=== PATIENT | male | born 1950 | race Caucasian/White ===

== ENCOUNTER 2019-12-11 16:01 | Inpatient (IN) ==
--- OUTSIDE RECORDS SUMMARY | 2019-12-11 16:03 | External Medical Summary | Continuity of Care Document ---
:1950 Author Name Per Mascorro Address Unavailable Unavailable , Care Team Providers Name Role Phone Ariane [email or web address] PCP, [email or web address] Unavailable Unavailable Problems Active medical history not documented Allergies and Adverse Reactions Allergy history not documented Medications Medications not documented Procedures Procedures not documented Immunizations Immunizations not documented Plan of Treatment Planned Observations Planned Goals not documented Results No Known Results Results not documented
--- NOTE | 2019-12-11 16:43 | Emergency Department Note ---
History of Present Illness General Chief complaint: Shortness of Breath/Dyspnea Stated complaint: SOB, FOOT SWOLLEN Time Seen by Provider: 12/11/19 16:23 Source: patient and family ( who is at the bedside) Mode of arrival: ambulatory Limitations: no limitations History of Present Illness This patient comes in after feeling short of breath since Friday is primarily dyspnea on exertion. He has had lower extremity edema as well. He saw his doctor who thought it could be anxiety and started on alprazolam. He has had some stress with a family member living at his house. He was also started on butyryl without much relief. He has no cough except for occasional dry cough. No fever or flulike symptoms or COVID type symptoms. He has had bilateral lower extremity edema which is new. No chest pain or palpitations or heart racing. He tells me he has A. fib chronically and is on apixaban. No bowel or bladder problems. No blood or melena stool. No lightheadedness or dizziness. He has been exposed to agent orange in the past Home Medications Home Medications Medication Instructions Recorded Confirmed Type albuterol sulfate [ProAir HFA] 1 inh INHALATION Q4 12/11/19 12/11/19 History alprazolam 1 mg PO TID 12/11/19 12/11/19 History apixaban [Eliquis] 5 mg PO BID 12/11/19 12/11/19 History lnrktacnyvd-rutsnxeem-wyvvupxd 1 inh INHALATION DIRECTED 12/11/19 12/11/19 History [Trelegy Ellipta] glipizide 10 mg PO BID 12/11/19 12/11/19 History lisinopril 5 mg PO DAILY 12/11/19 12/11/19 History metformin 1,000 mg PO DAILY 12/11/19 12/11/19 History metoprolol succinate [Toprol XL] 50 mg PO DAILY 12/11/19 12/11/19 History nicotine 1 patch TOPICAL DIRECTED 12/11/19 12/11/19 History simvastatin 80 mg PO DAILY 12/11/19 12/11/19 History Past Med/Surg History Social History Preferred Language: Afghan Communication Ability: Effective 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 Required: No Beliefs That Will Affect Care: None Current Living Situation: Spouse Other Information That Helps Us Care for You: No Feels Safe at Home: Yes Safety Concerns: Feels Safe At This Time Smoking Status: Former smoker Do You Dip or Chew Tobacco: No ; Smoking End Date: 07/2019 ; Second Hand Exposure: Yes ; Tobacco Cessation Education Requested by Patient: No Hx Alcohol Use: Yes Alcohol type: beer Hx Substance Use: No Review of Systems A total of 10 systems reviewed and were otherwise negative Physical Exam Vital Signs Vital Signs - 24 hr 12/11/19 16:09 12/11/19 16:21 12/11/19 16:23 Temperature 36.4 C L Temperature Source Oral Pulse Rate 124 H 120 H 125 H Pulse Rate from SpO2 Sensor 105 H 136 H Respiratory Rate 24 25 H 28 H Respiratory Effort / Characteristics Non-Labored Spontaneous Respiratory Depth Normal Respiratory Pattern Regular Blood Pressure 117/75 121/103 H 126/98 Blood Pressure Mean 89 108 110 Pulse Oximetry 94 97 Oxygen Delivery Method Room Air Room Air Room Air Sepsis Recent Fever Within 48 Hours No Sepsis Action Taken by Nursing No Action Required 12/11/19 16:28 12/11/19 16:30 12/11/19 16:31 Temperature Temperature Source Pulse Rate 124 H 119 H Pulse Rate from SpO2 Sensor 122 H 113 H Respiratory Rate 27 H 23 Respiratory Effort / Characteristics Respiratory Depth Respiratory Pattern Blood Pressure 116/92 Blood Pressure Mean 95 Pulse Oximetry 97 97 96 Oxygen Delivery Method Room Air Room Air Room Air Sepsis Recent Fever Within 48 Hours Sepsis Action Taken by Nursing 12/11/19 16:40 12/11/19 16:50 12/11/19 17:00 Temperature Temperature Source Pulse Rate 109 H 127 H 117 H Pulse Rate from SpO2 Sensor 110 H 119 H 90 Respiratory Rate 21 30 H 21 Respiratory Effort / Characteristics Respiratory Depth Respiratory Pattern Blood Pressure 108/87 Blood Pressure Mean 90 Pulse Oximetry 95 94 96 Oxygen Delivery Method Room Air Room Air Room Air Sepsis Recent Fever Within 48 Hours Sepsis Action Taken by Nursing 12/11/19 17:01 12/11/19 17:10 12/11/19 17:20 Temperature Temperature Source Pulse Rate 113 H 118 H 136 H Pulse Rate from SpO2 Sensor 113 H 102 H 131 H Respiratory Rate 23 24 31 H Respiratory Effort / Characteristics Respiratory Depth Respiratory Pattern Blood Pressure Blood Pressure Mean Pulse Oximetry 95 99 98 Oxygen Delivery Method Room Air Room Air Room Air Sepsis Recent Fever Within 48 Hours Sepsis Action Taken by Nursing 12/11/19 17:30 12/11/19 17:31 12/11/19 17:40 Temperature Temperature Source Pulse Rate 109 H 116 H 131 H Pulse Rate from SpO2 Sensor 97 H 114 H 93 H Respiratory Rate 33 H 25 H 21 Respiratory Effort / Characteristics Respiratory Depth Respiratory Pattern Blood Pressure 124/94 Blood Pressure Mean 110 Pulse Oximetry 93 92 94 Oxygen Delivery Method Room Air Room Air Room Air Sepsis Recent Fever Within 48 Hours Sepsis Action Taken by Nursing 12/11/19 19:11 Temperature Temperature Source Pulse Rate 124 H Pulse Rate from SpO2 Sensor 97 H Respiratory Rate 24 Respiratory Effort / Characteristics Respiratory Depth Respiratory Pattern Blood Pressure 113/97 Blood Pressure Mean 102 Pulse Oximetry 97 Oxygen Delivery Method Room Air Sepsis Recent Fever Within 48 Hours Sepsis Action Taken by Nursing General: Well developed well nourished rqs-rct-omrkcgxaw older male who appears in no acute distress, breathing comfortably on room air. Normal speech HEENT: Normal cephalic atraumatic. Pupils are equal round and reactive to light. Extraocular movements are intact. Oropharynx is pink with moist mucous membranes. No swelling of the mouth lips or tongue. Neck: Supple with a midline trachea. No meningeal signs or stiffness, no JVD or bruits. No Stridor. Chest: Clear to auscultation bilaterally. No wheezes or rhonchi. No increased work of breathing. He is speaking fluently and holding long conversations without apparent shortness of breath Heart: Irregularly irregular rate and rhythm with mild tachycardia in the 1 teens without murmurs or gallops. Abdomen: Soft nontender, nondistended without rebound guarding or rigidity. Extremities: No cyanosis clubbing. Bilateral lower extremity edema, 1+. No calf tenderness or assymetry Spine/Back. Non tender to palpation. No CVA tenderness Skin: Good turgor without rashes. Neurologic exam: Cranial nerves two through 12 are intact. Motor and sensation are intact and symmetrical throughout. Course Administered Medications Ioversol (Optiray 320 125ml) 110 ml IV ONCE PRN PRN Reason: Interaction Checking Stop: 12/15/19 18:08 Last Admin: 12/11/19 18:10 Dose: 110 ml Documented by: [id number] Discontinued Medications Furosemide (Lasix) 20 mg IV NOW STA Stop: 12/11/19 18:45 Last Admin: 12/11/19 19:05 Dose: 20 mg Documented by: [id number] Medical Decision Making Differential Diagnosis CHF, anxiety, arrhythmia, PE, electrolyte or metabolic abnormality, acute coronary syndrome, anemia, electrolyte or metabolic abnormality, infection, code Medical Records Attestation: I reviewed the patient's medical records. Home Medications Current Medication List: was personally reviewed by me Laboratory Data Attestation: I reviewed the patient's lab results. Result diagrams: 12/11/19 16:29 12/11/19 16:29 Lab Results 12/11/19 12/11/19 12/11/19 Range/Units 16:29 16:29 16:29 WBC 8.44 (4.8-10.8) K/uL RBC 4.12 L (4.7-6.1) M/uL Hgb 13.9 L (14.0-18.0) g/dL Hct 40.8 L (42-52) % MCV 99.0 (80-100) fL MCH 33.7 (25-34) pg MCHC 34.1 (32-36) g/dL RDW Std Deviation 52.8 H (36.4-46.3) fL RDW Coeff of Tiffany 14.7 H (11.5-14.5) % Plt Count 215 (130-400) K/uL MPV 11.1 H (7.4-10.4) fL Immature Gran % (Auto) 0.1 % Neut % (Auto) 74.8 % Lymph % (Auto) 14.9 % [place] % (Auto) 10.2 % Eos % (Auto) 0.0 % Baso % (Auto) 0.0 % Neut # (Auto) 6.31 (1.4-6.5) K/uL Lymph # (Auto) 1.26 (1.2-3.4) K/uL [place] # (Auto) 0.86 H (0.11-0.59) K/uL Eos # (Auto) 0.00 (0-0.5) K/uL Baso # (Auto) 0.00 (0-0.2) K/uL Immature Gran # (Auto) 0.01 (0.00-0.02) K/uL PT 14.6 H (9.0-12.0) Seconds INR 1.4 H (0.9-1.1) APTT 31.9 H (21.0-31.0) Seconds PTT Ratio 1.1 D-Dimer 820 H* (0-500) ug/L FEU Sodium 133 L (136-145) mmol/L Potassium 4.6 (3.5-5.1) mmol/L Chloride 104 (98-107) mmol/L Carbon Dioxide 21 (21-32) mmol/L Anion Gap 8.0 (3-11) BUN 24 H (7-18) mg/dl Creatinine 1.44 H (0.6-1.4) mg/dl Est Cr Clr Drug Dosing 53.9 ml/min Est GFR ( Amer) 57.4 Est GFR (Non-Af Amer) 49.5 BUN/Creatinine Ratio 16.6 (10-20) Glucose 145 H (70-99) mg/dl Calcium 9.2 (8.5-10.1) mg/dl Total Bilirubin 1.2 H (0.2-1) mg/dl AST 91 H (15-37) U/L ALT 80 H (12-78) U/L Alkaline Phosphatase 112 (45-117) U/L Troponin I < 0.015 (0-0.045) ng/ml NT-Pro-B Natriuret Pep > 16826 H (0-900) pg/ml Total Protein 8.1 (6.4-8.2) gm/dl Albumin 3.8 (3.4-5.0) gm/dl Globulin 4.3 H (2.5-4.0) gm/dl Albumin/Globulin Ratio 0.9 (0.9-2) Lipase 75 (73-393) U/L Imaging Data Attestation: I personally reviewed and interpreted this imaging study as follows: My Impression: Chest x-ray: Cardiomegaly. There may be some mild vascular congestion as well with no focal infiltrate. Radiologist's Impression: XR chest 1V portable CLINICAL HISTORY: Chest pain. COMPARISON STUDY: No previous studies for comparison. FINDINGS: The patient is rotated. Moderate cardiomegaly is noted. There is pulmonary vascular congestion. Small right and trace left pleural effusions are noted. Right basilar opacity is noted. IMPRESSION: 1. Small right pleural effusion with right basilar opacity that may reflect atelectasis or pneumonia. Radiographic follow-up is recommended. 2. Moderate cardiomegaly. Pulmonary vascular congestion. 3. Rotated study. CT ANGIOGRAPHY OF THE CHEST, PULMONARY EMBOLUS PROTOCOL CLINICAL HISTORY: Severe shortness of breath. COMPARISON STUDY: Chest radiograph performed earlier today. TECHNIQUE: Following IV administration of 110 mL of Optiray-320, helical axial images of the chest were obtained utilizing the pulmonary embolus protocol. Maximal intensity projections and sagittal and coronal reformats were viewed on an independent 3D workstation. IV contrast was administered without complication. Automated exposure control was utilized for the study. A dose lowering technique was utilized adhering to the principles of ALARA. CT DOSE: 532.95 mGy.cm FINDINGS: Evaluation is difficult given suspected mixing artifact within the right and left pulmonary arteries as well as multiple segmental pulmonary art eries, most notably within the right lower lobe. Apparent pulmonary emboli within the right lower lobe likely reflect mixing artifact. Heart is moderately enlarged. There is no pericardial effusion. There are several mildly enlarged mediastinal lymph nodes. Small to moderate right pleural effusion is noted. There is a small left pleural effusion. There is no pneumothorax. Moderate upper lobe predominant emphysema is noted. A 5 mm left upper lobe nodule on image 241 of 346 is noted. The central airways are patent. Right lung opacities favor atelectasis. There is no consolidation to suggest pneumonia. There is mild interlobular septal thickening. A few old bilateral rib fractures are noted. A small amount of ascites within the upper abdomen is noted. IMPRESSION: 1. Apparent filling defects within the pulmonary arteries, most notably within the right pulmonary artery and numerous segmental branches of the right lower lobe. The findings are likely due to mixing artifact. Pulmonary emboli could appear similar but are considered less likely. A repeat CT is recommended. 2. Small to moderate right pleural effusion. Small left pleural effusion. Mild interstitial pulmonary edema. 3. Moderate cardiomegaly. 4. Right lung airspace opacities suggestive of atelectasis. No consolidation to suggest pneumonia. 5. Small amount of ascites within the upper abdomen. 6. Moderate emphysema. 7. 5 mm left upper lobe nodule which is likely benign. A follow-up chest CT in 6 months to ensure stability is recommended. Prominent mediastinal and right hilar lymph nodes which are likely reactive but can be assessed on follow-up chest CT. ECG Data Attestation: I personally reviewed and interpreted this ECG as follows: Indication: + SOB/dyspnea Rate (beats per minute): 124 Rhythm: + atrial fibrillation (With a rapid ventricular response ) ECG Intervals/blocks: + Normal QRS ECG [place]: + Normal ECG ST segments: + Nonspecific ST abnormalities ECG Findings: + PVCs and + Poor R wave progression; no PACs and no Peaked T waves Comparison ECG Date: no prior available Blood Pressure Blood Pressure Findings: Normal blood pressure Blood Pressure Disposition: did not require urgent referral MDM Narrative This patient comes in as scribed above. He was placed on a admissions rn in room B7. He has been having shortness of breath and lower extremity edema. Is mostly been dyspnea on exertion. Looks well at rest. He is mildly tachycardic and has A. fib and he tells me the A. fib is chronic and he is on apixaban for this. He appears in no distress. IV access was established multiple blood test was obtained EKG and chest x-ray were obtained as well. He was reassessed frequently. He has a normal white count and nothing to suggest sepsis or infection. He is not significantly anemic. Chest x-ray shows some cardiomegaly. His d-dimer was elevated in the 800s. I did discuss doing a CAT scan of his chest and he agrees. I explained the risks and the benefits. When I go to recheck him prior to the CT his heart rate is about 100 and is come down significantly without any treatment. He also continues to appear in no distress. CAT scan of his chest does show pleural effusions and some congestive heart failure. Unfortunately it is difficult to rule PE out due to the dye mixing. The radiologist did recommend repeating the CAT scan. At this point, that may need to be done tomorrow if necessary. I do think he needs to be admitted for his congestive heart failure. he was given Lasix 20 mg IV for diuresis and I do think should come in the hospital for further treatment and evaluation. I have consulted Dr. Barrett to see him in the ER for these measures. Continuous cardiac monitoring: An order was placed for continuous cardiac monitoring. 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 Discharge Plan Visit Data *Final* Discharge Date/Time: 12/11/19 20:35 Chief Complaint: Shortness of Breath/Dyspnea Stated Complaint: SOB, FOOT SWOLLEN ED Provider: Hi Sol Discharge Problem: CHF (congestive heart failure), SOB (shortness of breath), Atrial fibrillation, retirement (current) use of anticoagulants Patient Disposition: Admitted As Inpatient Discharge Instructions Interventions: ED Discharge Assessment Last Done: 12/11/19 20:35 Discharge Problem: CHF (congestive heart failure) Qualifiers: Heart failure type: unspecified Heart failure chronicity: acute Qualified Code(s): I50.9 - Heart failure, unspecified Atrial fibrillation Qualifiers: Atrial fibrillation type: longstanding persistent Qualified Code(s): I48.11 - Longstanding persistent atrial fibrillation
[2019-12-11 16:49] LABS: Hematocrit (blood only) 40.8 % (42-52); Hemoglobin 13.9 g/dL (14.0-18.0); Immature Granulocytes # (auto) 0.01 K/uL (0.00-0.02); Immature Granulocytes % (auto) 0.1 %; Lymphocytes # (auto) 1.26 K/uL (1.2-3.4); Lymphocytes % (auto) 14.9 %; Mean Corpuscular Hemoglobin 33.7 pg (25-34); Mean Corpuscular Hgb Conc 34.1 g/dL (32-36); Mean Platelet Volume 11.1 fL (7.4-10.4); Monocytes # (auto) 0.86 K/uL (0.11-0.59); Monocytes % (auto) 10.2 %; Neutrophils # (auto) 6.31 K/uL (1.4-6.5); Neutrophils % (auto) 74.8 %; Platelet Count 215 K/uL (130-400); RDW Coefficient of Variation 14.7 % (11.5-14.5); RDW Standard Deviation 52.8 fL (36.4-46.3); Red Blood Count 4.12 M/uL (4.7-6.1); White Blood Count 8.44 K/uL (4.8-10.8)
[2019-12-11 17:02] LABS: INR 1.4 (0.9-1.1); Partial Thromboplastin Ratio 1.1; Partial Thromboplastin Time 31.9 Seconds (21.0-31.0); Prothrombin Time 14.6 Seconds (9.0-12.0)
[2019-12-11 17:04] LABS: D Dimer 820 ug/L FEU (0-500)
--- NOTE | 2019-12-11 17:12 | XRay Report ---
XR chest 1V portable CLINICAL HISTORY: Chest pain. COMPARISON STUDY: No previous studies for comparison. FINDINGS: The patient is rotated. Moderate cardiomegaly is noted. There is pulmonary vascular congest ion. Small right and trace left pleural effusions are noted. Right basilar opacity is noted. IMPRESSION: 1. Small right pleural effusion with right basilar opacity that may reflect atelectasis or pneumonia. Radiographic follow-up is recommended. 2. Moderate cardiomegaly. Pulmonary vascular congestion. 3. Rotated study. ACT 112: Negative or not required by law. Electronically signed by: Zurdo Olivarez M.D. 12/11/2019 5:11 PM
[2019-12-11 17:21] LABS: Alanine Aminotransferase 80 U/L (12-78); Albumin Level 3.8 gm/dl (3.4-5.0); Aspartate Aminotransferase 91 U/L (15-37); BUN Creatinine Ratio 16.6 (10-20); Blood Urea Nitrogen 24 mg/dl (7-18); Calcium 9.2 mg/dl (8.5-10.1); Carbon Dioxide 21 mmol/L (21-32); Chloride 104 mmol/L (98-107); Creatinine Clr Calc Pharmacy 53.9 ml/min; Est GFR (African American) 57.4; Est GFR (Non-African American) 49.5; Glucose 145 mg/dl (70-99); Lipase 75 U/L (73-393); Potassium 4.6 mmol/L (3.5-5.1); Sodium 133 mmol/L (136-145)
[2019-12-11 17:26] LABS: Albumin Globulin Ratio 0.9 (0.9-2); Alkaline Phosphatase 112 U/L (45-117); Bilirubin,Total 1.2 mg/dl (0.2-1); Globulin 4.3 gm/dl (2.5-4.0); NT Pro B Type Natriuretic Pept > 35000 pg/ml (0-900); Total Protein 8.1 gm/dl (6.4-8.2); Troponin I < 0.015 ng/ml (0-0.045)
[2019-12-11] MEDS ORDERED: OPTIRAY 320 125ml IV PRN (18:09)
--- NOTE | 2019-12-11 18:32 | CT Scan Report ---
CT ANGIOGRAPHY OF THE CHEST, PULMONARY EMBOLUS PROTOCOL CLINICAL HISTORY: Severe shortness of breath. COMPARISON STUDY: Chest radiograph performed earlier today. TECHNIQUE: Following IV administration of 110 mL of Optiray-320, helical axial images of the chest we re obtained utilizing the pulmonary embolus protocol. Maximal intensity projections and sagittal and coronal reformats were viewed on an independent 3D workstation. IV contrast was administered withou t complication. Automated exposure control was utilized for the study. A dose lowering technique wa s utilized adhering to the principles of ALARA. CT DOSE: 532.95 mGy.cm FINDINGS: Evaluation is difficult given suspected mixing artifact within the right and left pulmonar y arteries as well as multiple segmental pulmonary arteries, most notably within the right lower lobe . Apparent pulmonary emboli within the right lower lobe likely reflect mixing artifact. Heart is mode rately enlarged. There is no pericardial effusion. There are several mildly enlarged mediastinal lymp h nodes. Small to moderate right pleural effusion is noted. There is a small left pleural effusion. T here is no pneumothorax. Moderate upper lobe predominant emphysema is noted. A 5 mm left upper lobe n odule on image 241 of 346 is noted. The central airways are patent. Right lung opacities favor atelec tasis. There is no consolidation to suggest pneumonia. There is mild interlobular septal thickening. A few old bilateral rib fractures are noted. A small amount of ascites within the upper abdomen is no kip. IMPRESSION: 1. Apparent filling defects within the pulmonary arteries, most notably within the right pulmonary ar jony and numerous segmental branches of the right lower lobe. The findings are likely due to mixing a rtifact. Pulmonary emboli could appear similar but are considered less likely. A repeat CT is recomme nded. 2. Small to moderate right pleural effusion. Small left pleural effusion. Mild interstitial pulmonary edema. 3. Moderate cardiomegaly. 4. Right lung airspace opacities suggestive of atelectasis. No consolidation to suggest pneumonia. 5. Small amount of ascites within the upper abdomen. 6. Moderate emphysema. 7. 5 mm left upper lobe nodule which is likely benign. A follow-up chest CT in 6 months to ensure sta bility is recommended. Prominent mediastinal and right hilar lymph nodes which are likely reactive bu t can be assessed on follow-up chest CT. ACT 112: Negative or not required by law. Electronically signed by: Zurdo Olivarez M.D. 12/11/2019 6:31 PM
[2019-12-11] MEDS ORDERED: FUROSEMIDE 40 MG/4 ML VIAL IV STA ×2 (18:44→19:52)
[2019-12-11] MEDS ORDERED: METOPROLOL TARTRATE 1 MG/ML VIAL IV PRN (19:41)
[2019-12-11] MEDS ORDERED: CARBOHYDRATES FOR HYPOGLYCEMIA PO PRN (19:45)
[2019-12-11] MEDS ORDERED: GLUCAGON FOR INJ 1 MG VIAL SQ PRN (19:45)
[2019-12-11] MEDS ORDERED: DEXTROSE 50% 50 ML SYRINGE IV PRN (19:45)
[2019-12-11] MEDS ORDERED: GLUCOSE 40% GEL 15 GM TUBE PO PRN (19:45)
[2019-12-11] MEDS ORDERED: GLUCOSE 10 TABS/TUBE PO PRN (19:45)
[2019-12-11] MEDS ORDERED: ALBUT/IPRATROP 3MG/0.5MG NEB 3 ML VIAL NEB PRN (19:48)
--- NOTE | 2019-12-11 20:06 | History & Physical Report ---
Date of Service December 11, 2019 Assessment & Plan (1) SOB (shortness of breath): Possible obstructive sleep apnea vs other etiology such as acute CHF exacerbation or from atrial fibrillation with rapid ventricular response -patient reports shortness of breath episode the night before hospital p resentation -he reports recent outpatient pulmonary function study but never diagnosed with obstructive sleep apnea -does not use home oxygen or CPAP at home (2) Acute systolic CHF (congestive heart failure): acute CHF exacerbation -reports that when he had been hospitalized in June 2019, he was diagnosed with poor ejection fraction of the heart as 30% and valvular heart problem -it was then that he was started on cardiac medications for CHF; and apixaban for stroke prophylaxis for the atrial fibrillation which he had known for a long time -he reported that he sign out on that admission because he disagreed with the doctors assessments and then had follow up [facility] system and family doctor Dr. Anders Piper on [address] [place] [address] [place] [address], phone -he reports adherence to beat kris, SHARI inhibitor statin. however he appears to have discontinued furosemide because he was urinating too much -on this admission he has elevated BNP, on CTA scan there are: Small to moderate right pleural effusion. Small left pleural effusion. Mild interstitial pulmonary edema. Moderate cardiomegaly. Right lung airspace opacities suggestive of atelectasis -given Lasix 20 mg IV x 1 in the ED, will give another 20 mg IV x1 at night of admission; then plan on IV Lasix 40 mg IV daily for now, monitor on telemetry, get echocardiogram and inpatient cardiology consult (3) Ascites: -Small amount of ascites within the upper abdomen on CTA -obtain abdomen ultrasound -check INR, hepatitis panel (4) COPD (chronic obstructive pulmonary disease) with emphysema: -history of smoking in the past but no longer since June 2019 -use Ellipta inhaler at home, continue -duonebs prn for shortness of breath or wheezing -Moderate emphysema on admission CTA -on room air on admission, no wheezing, his acute respiratory symptoms at home not likely to be from COPD (5) Lung nodule: -admission CTA: a 5 mm left upper lobe nodule which is likely benign. A follow-up chest CT in 6 months to ensure stability is recommended. Prominent mediastinal and right hilar lymph nodes which are likely reactive but can be assessed on follow-up chest CT (6) Atrial fibrillation with rapid ventricular response: -on admission with heart rates intermittently between low 100s to 120s -increase home dose metoprolol from metoprolol succinate 50 mg to metoprolol tartrate 25 mg every 8 hours for now, also have 5 mg IV metoprolol every 6 hours prn for heart rates above 110 bpm (7) half-way (current) use of anticoagulants: -has been on apixaban 5 mg BID since June 2019 for stroke prophylaxis from atrial fibrillation -admission CTA with "Apparent filling defects within the pulmonary arteries, most notably within the right pulmonary artery and numerous segmental branches of the right lower lobe. The findings are likely due to mixing artifact. Pulmonary emboli could appear similar but are considered less likely" -get ultrasound of lower extremities to rule out DVT -continue apixaban (8) Renal insufficiency: -admission creatinine 1.44 -unclear as to the baseline renal function -trend renal function while on furosemide (9) Type 2 diabetes mellitus: -patient reports good diabetes mellitus control at home and last known HbA1c as 6 -check inpatient HbA1c -hold home dose metformin and glipizide for now, place on sliding scale insulin based on blood sugars [employer] [place] Exposure -reports history of [place] exposure in the past when in the Current primary care doctor is Dr. Anders Piper on [address] [place] [address] [place] [address], phone . patient wishes to transfer care to [facility] outpatient clinic. will ask patient to allow get medical release of records. patient also follows with [facility] medical system Full Code Status [phone], History of Present Illness -patient reports shortness of breath episode the night before hospital presentation -he reports recent outpatient pulmonary function study but never diagnosed with obstructive sleep apnea -does not use home oxygen or CPAP at home no chest pain, no dizziness, no lightheadedness, no vomiting, no abdomen pain, no problems with bowel movement, no problems with urination. reports good diabe vicente control at home. reports adherence to cardiac medications and systemic anticoagulation with apixaban however no longer taking furosemide. reports recent outpatient pulmonary function tested completed but patient does not know the results. denies palpitations, but found to have fast heart rate with known atrial fibrillation in the ED. on room air, was given Lasix 20 mg IV x 1 in the ED. patient admitted for further cardiac workup and because emergency room doctor uncertain on whether CTA scan suggestive of pulmonary embolism or not Allergies: denies any known allergies to drugs or medications Family History father had stroke and mother had cancer, patient denies any personal history of stroke or cancer Primary Care Provider: Anders Piper Home Medications Home Medications Medication Instructions Recorded Confirmed Type albuterol sulfate [ProAir HFA] 1 inh INHALATION Q4 12/11/19 12/11/19 History alprazolam 1 mg PO TID 12/11/19 12/11/19 History apixaban [Eliquis] 5 mg PO BID 12/11/19 12/11/19 History [id number]-qrygvhtwe-wgdqokkz 1 inh INHALATION DIRECTED 12/11/19 12/11/19 History [Trelegy Ellipta] glipizide 10 mg PO BID 12/11/19 12/11/19 History lisinopril 5 mg PO DAILY 12/11/19 12/11/19 History metformin 1,000 mg PO DAILY 12/11/19 12/11/19 History metoprolol succinate [Toprol XL] 50 mg PO DAILY 12/11/19 12/11/19 History nicotine 1 patch TOPICAL DIRECTED 12/11/19 12/11/19 History simvastatin 80 mg PO DAILY 12/11/19 12/11/19 History Past Med/Surg History Social History Feels Safe at Home: Yes Smoking Status: Former smoker Review of Systems Review of Systems: All systems reviewed & are unremarkable except as noted in Subjective Physical Exam Constitutional: comfortable Eyes: PERRL, conjunctivae normal, anicteric sclerae EOM intact bilaterally ENMT: external ear and nose normal, oropharynx normal Neck: trachea midline, no thyromegaly normal visual inspection Respiratory: normal respiratory effort no wheezing Cardiovascular: Rate/Rhythm: + tachycardic and + irregularly irregular Gastrointestinal (Abdomen): appears distended, there is umbilical hernia Musculoskeletal: Head/Neck/Chest: normocephalic and head atraumatic Neurologic: PERRL, EOMI, accommodation nl, no face palsy, no dysarthria CN's II-XI intact bilaterally Psychiatric: A+Ox3, euthymic affect Results & Data Results & Data ([facility]) Vital Signs (Past 12 Hours) Vital Signs Temp Pulse Resp BP Pulse Ox 12/11/19 19:11 124 H 24 113/97 97 12/11/19 17:40 131 H 21 94 12/11/19 17:31 116 H 25 H 124/94 92 12/11/19 17:30 109 H 33 H 93 12/11/19 17:20 136 H 31 H 98 12/11/19 17:10 118 H 24 99 12/11/19 17:01 113 H 23 95 12/11/19 17:00 117 H 21 108/87 96 12/11/19 16:50 127 H 30 H 94 12/11/19 16:40 109 H 21 95 12/11/19 16:31 119 H 23 116/92 96 12/11/19 16:30 124 H 27 H 97 12/11/19 16:28 97 12/11/19 16:23 125 H 28 H 126/98 12/11/19 16:21 120 H 25 H 121/103 H 97 12/11/19 16:09 36.4 C L 124 H 24 117/75 94 Code Status & VTE Plan VTE Prophylaxis Plan VTE Prophylaxis will be ordered: Yes
[2019-12-11] MEDS ORDERED: FUROSEMIDE 40 MG/4 ML VIAL IV SCH (21:00)
[2019-12-11] MEDS ORDERED: FUROSEMIDE 20 MG in SYRINGE 0 ML IV SCH (21:00)
[2019-12-11] MEDS ORDERED: ALPRAZolam 0.5 MG TABLET PO SCH (21:00)
[2019-12-11] MEDS: INSULIN ASPART 100 UNITS/ML 3 ML PEN SC SCH (21:59)
[2019-12-11] MEDS: APIXABAN 5 MG TABLET PO SCH (23:14)
[2019-12-11] MEDS: METOPROLOL TARTRATE 25 MG TAB PO SCH (23:15)
[2019-12-11] MEDS: NICOTINE 21 MG/24 HR TDSY TD SCH (23:16)
[2019-12-12] MEDS: ALBUTEROL HFA 8 GM INHALER INH SCH ×7 (00:06→23:13)
[2019-12-12] MEDS: ALPRAZolam 0.5 MG TABLET PO PRN ×2 (01:43→22:49)
[2019-12-12 01:48] LABS: Appearance Urine Clear (Clear); Bacteria Urine Automated Negative (Negative); Bilirubin Urine Negative (Negative); Blood Urine Negative (Negative); Color Urine Yellow; Epithelial Cell Urine Auto 0-5 /lpf (0-5); Glucose Urine UA Negative (Negative); Ketones Urine Negative (Negative); Leukocyte Esterase Urine Negative (Negative); Nitrite Urine Negative (Negative); Protein Urine 2+ (Negative); RBC Urine Automated 0-4 /hpf (0-4); Specific Gravity Urine 1.022 (1.000-1.030); Urobilinogen Urine Negative (Negative)
[2019-12-12] MEDS: METOPROLOL TARTRATE 25 MG TAB PO SCH ×3 (06:27→20:29)
[2019-12-12 06:34] LABS: Hematocrit (blood only) 37.5 % (42-52); Hemoglobin 12.4 g/dL (14.0-18.0); Immature Granulocytes # (auto) 0.02 K/uL (0.00-0.02); Immature Granulocytes % (auto) 0.3 %; Lymphocytes # (auto) 1.08 K/uL (1.2-3.4); Lymphocytes % (auto) 13.7 %; Mean Corpuscular Hemoglobin 32.9 pg (25-34); Mean Corpuscular Hgb Conc 33.1 g/dL (32-36); Mean Corpuscular Volume 99.5 fL (80-100); Mean Platelet Volume 11.1 fL (7.4-10.4); Monocytes # (auto) 0.94 K/uL (0.11-0.59); Monocytes % (auto) 11.9 %; Neutrophils # (auto) 5.87 K/uL (1.4-6.5); Neutrophils % (auto) 74.1 %; Platelet Count 182 K/uL (130-400); RDW Coefficient of Variation 14.6 % (11.5-14.5); RDW Standard Deviation 52.1 fL (36.4-46.3); Red Blood Count 3.77 M/uL (4.7-6.1); White Blood Count 7.91 K/uL (4.8-10.8)
[2019-12-12 06:52] LABS: INR 1.5 (0.9-1.1); Partial Thromboplastin Ratio 1.1; Partial Thromboplastin Time 29.7 Seconds (21.0-31.0); Prothrombin Time 15.6 Seconds (9.0-12.0)
[2019-12-12 07:03] LABS: Albumin Level 3.4 gm/dl (3.4-5.0); BUN Creatinine Ratio 20.9 (10-20); Calcium 8.6 mg/dl (8.5-10.1); Creatinine Clr Calc Pharmacy 57.1 ml/min; Est GFR (African American) 61.5; Est GFR (Non-African American) 53.1; Magnesium 2.2 mg/dl (1.8-2.4); Potassium 4.3 mmol/L (3.5-5.1)
[2019-12-12 07:12] LABS: Albumin Globulin Ratio 0.9 (0.9-2); Bilirubin,Total 1.1 mg/dl (0.2-1); Globulin 3.6 gm/dl (2.5-4.0); Phosphorus 4.5 mg/dl (2.5-4.9); Thyroid Stimulating Hormone 0.853 uIu/ml (0.300-4.500)
[2019-12-12] MEDS: INSULIN ASPART 100 UNITS/ML 3 ML PEN SC SCH ×4 (08:09→20:20)
[2019-12-12 08:50] LABS: Hepatitis B Surface Antigen Neg (Neg)
[2019-12-12] MEDS ORDERED: FUROSEMIDE 40 MG/4 ML VIAL IV SCH (09:00)
[2019-12-12] MEDS ORDERED: FUROSEMIDE 40 MG in SYRINGE 0 ML IV SCH (09:00)
[2019-12-12] MEDS: SIMVASTATIN 80 MG TAB PO SCH (09:05)
[2019-12-12] MEDS: lisinopriL 5 MG TAB PO SCH (09:05)
[2019-12-12] MEDS: APIXABAN 5 MG TABLET PO SCH ×2 (09:05→20:29)
[2019-12-12] MEDS: FLUTICASONE FUROATE 100MCG 14 PUFFS/INHALER INH SCH (09:06)
[2019-12-12] MEDS: UMECLIDINIUM/VILANTEROL 62.5/25MCG 7 PUFFS/INHALER INH SCH (09:06)
[2019-12-12] MEDS: NICOTINE 21 MG/24 HR TDSY TD SCH (09:06)
--- NOTE | 2019-12-12 09:12 | Ultrasound Report ---
BILATERAL LOWER EXTREMITY VENOUS DOPPLER CLINICAL HISTORY: Bilateral lower extremity edema. Evaluate for deep venous thrombus. COMPARISON STUDY: No previous studies for comparison. TECHNIQUE: Sonography of the deep venous system of the bilateral lower extremities was performed. Co mpression and augmentation were evaluated. FINDINGS: The bilateral common femoral, superficial femoral and popliteal veins were compressible. A ugmentation was normal. Flow was shown within the deep calf vessels. IMPRESSION: No evidence of deep venous thrombus within the bilateral lower extremities. ACT 112: Negative or not required by law. Electronically signed by: Zurdo Olivarez M.D. 12/12/2019 9:10 AM
--- NOTE | 2019-12-12 09:13 | Ultrasound Report ---
US abdomen ltd ascites CLINICAL HISTORY: rule out ascites COMPARISON STUDY: No previous studies for comparison. TECHNIQUE: Sonography of the abdomen and pelvis was performed to assess for ascites. FINDINGS: No ascites was identified within the abdomen or pelvis. IMPRESSION: No ascites identified. ACT 112: Negative or not required by law. Electronically signed by: Zurdo Olivarez M.D. 12/12/2019 9:12 AM
[2019-12-12 09:18] LABS: Hepatitis C IgG 13Yrs+Old_Rflx Neg (Neg)
--- NOTE | 2019-12-12 10:55 | Cardiology Consultation ---
Date of Consultation December 12, 2019 Assessment & Plan (1) Acute on chronic heart failure with reduced ejection fraction and diastolic dysfunction: (2) Atrial fibrillation with rapid ventricular response: (3) Mitral regurgitation: (4) Pleural effusion, bilateral: (5) Ascites: (6) Hepatic congestion: (7) Type 2 diabetes mellitus: (8) Renal insufficiency: Complex 69-year-old patient mated with acute decompensated systolic heart failure. Diagnosed with cardiomyopathy June 2019. Patient declines further invasive evaluation including cardiac catheterization. Agreeable to medical management. Recommend Aldactone 25 mg daily. Titrate Lasix to 40 mg IV twice daily. Agree with titration of metoprolol to 25 mg 3 times daily. Continue telemetry monitoring. Follow daily weight, fluid balance, electrolytes, and GFR. Patient may require Ravi catheter or intermittent straight cath pending bladder scan. Atrial fibrillation rate control improved since admission. Continue current meds. Mitral regurgitation appears moderate per 2D transthoracic echocardiogram with evidence of borderline mild pulmonary arterial hypertension. Significantly elevated transaminases noted I suspect secondary to passive congestion, however, due to his longstanding history of alcohol abuse, alcoholic cirrhosis must be considered. Consider gastroenterology/hepatology evaluation. In regard to his CT demonstrating "mixing artifact", consider repeat CT during hospitalization, however, I would wait at least 48 hours and monitor GFR daily as the patient is being actively diuresed in the setting of acute systolic heart failure. Consider VQ scan as an alternative, although, patient will require adequate diuresis with improvement of pleural effusions to improve the diagnostic accuracy of this imaging modality. Continue anticoagulation with apixaban. History of Present Illness Reason for Consultation: CHF atrial fibrillation Requesting Physician: Dr. Nichols Attending Physician: Taco Artis MD History of Present Illness XT 9-year-old patient presents to the emergency department with shortness of breath, orthopnea, PND, chest discomfort, and lower extremity edema. Patient reports progressive symptoms over the past 3 days. Approximately 2 days ago, he experienced a severe bout of paroxysmal nocturnal dyspnea. States he nearly came to the emergency department that evening. In the ER, patient treated with intravenous diuretic therapy. CT angiogram of the chest demonstrating mixing artifact, pulmonary embolus cannot be excluded. He is chronically anticoagulated with apixaban. Fluid balance -1400 cc since admission. Lower extremity edema improved. Denies chest discomfort or palpitations. Creatinine has trended downward to 1.36 this morning. Patient reports diagnosis of cardiomyopathy, congestive heart failure, and atrial fibrillation in June of this year. According to the patient, he was treated at [facility]. He was seen by cardiology and cardiac catheterization was recommended. States he declined cardiac catheterization and left AGAINST MEDICAL ADVICE. I do not have records of that hospitalization or cardiology consultations. Patient reports an ejection fraction of 30% from that hospitalization. Typically [facility] from [facility]. Reports a lifelong history of heavy tobacco and alcohol abuse. Quit smoking and drinking in June of this year. Currently, patient is resting comfortably. He is requesting in a.m. meal. Agreeable to medical management, however, resistant to any invasive procedures at this time. 40 minutes critical care time spent evaluating patient, reviewing studies, and formulating/instituting plan of care. Allergies Allergy/AdvReac Type Severity Reaction Status Date / Time No Known Allergies Allergy Unverified 12/12/19 09:12 Home Medications Home Medications Medication Instructions Recorded Confirmed Type albuterol sulfate [ProAir HFA] 1 inh INHALATION Q4 12/11/19 12/11/19 History alprazolam 1 mg PO TID 12/11/19 12/11/19 History apixaban [Eliquis] 5 mg PO BID 12/11/19 12/11/19 History [id number]-qcgrfscgm-[id number] 1 inh INHALATION DIRECTED 12/11/19 12/11/19 History [Trelegy Ellipta] glipizide 10 mg PO BID 12/11/19 12/11/19 History lisinopril 5 mg PO DAILY 12/11/19 12/11/19 History metformin 1,000 mg PO DAILY 12/11/19 12/11/19 History metoprolol succinate [Toprol XL] 50 mg PO DAILY 12/11/19 12/11/19 History nicotine 1 patch TOPICAL DIRECTED 12/11/19 12/11/19 History simvastatin 80 mg PO DAILY 12/11/19 12/11/19 History Patient History Social History Preferred Language: Panamanian Communication Ability: Effective Outpatient Coordinator Required: No Beliefs That Will Affect Care: None marital status: Current Living Situation: Spouse Other Information That Helps Us Care for You: No Feels Safe at Home: Yes Safety Concerns: Feels Safe At This Time Smoking Status: Former smoker Do You Dip or Chew Tobacco: No ; Smoking End Date: 07/2019 ; Second Hand Exposure: Yes ; Tobacco Cessation Education Requested by Patient: No Hx Alcohol Use: Yes Alcohol type: beer Hx Substance Use: No Review of Systems Review of Systems: All systems reviewed & are unremarkable except as noted in HPI & below Physical Exam Constitutional: well developed, well nourished and + ill appearing; no acute distress and not intoxicated appearing Respiratory: normal respiratory effort; no respiratory distress, no labored breathing, no retractions and does not use accessory muscles Auscultation: + diminished lung sounds and + rales (Bases bilaterally); no crackles, no rhonchi and no wheezes Cardiovascular: Rate/Rhythm: + irregularly irregular Heart Sounds: normal S1 and normal S2; no murmur Vessels: + JVD, + cranial bruit and radial pulses present; no carotid bruit Extremities: + edema (1+ bilateral pedal and pretibial edema) Gastrointestinal (Abdomen): Inspection/Auscultation: normal bowel sounds; + abdomen abnormal to inspection (Umbilical hernia) Percussion/Palpation: abdomen soft; abdomen nontender, no guarding and abdomen not rigid Musculoskeletal: no cyanosis or clubbing, extremities motor strength 5/5 Extremities: + cyanosis Skin: no rashes, warm and dry Neurologic: CN's II-XI intact bilaterally and moves all extremities; no focal motor deficits Speech / Cognition: normal speech Motor/Sensory: no tremor Psychiatric: A+Ox3, euthymic affect Results & Data ([facility]) Vital Signs (Past 12 Hours) Vital Signs Temp Pulse Pulse Resp BP Pulse Ox 12/12/19 08:57 71 12/12/19 07:45 36.5 C 83 18 116/77 90 12/12/19 07:13 65 16 94 12/12/19 06:28 74 128/81 12/12/19 04:00 37.0 C 81 17 114/70 92 12/12/19 03:27 61 16 96 12/12/19 00:23 138 H 12/12/19 00:07 67 16 94 12/11/19 23:39 36.7 C 98 H 18 104/60 94 (1) Ascites Ascites type: other type Qualified Code(s): R18.8 - Other ascites (2) Type 2 diabetes mellitus Diabetes mellitus complication detail: with other circulatory complications Diabetes mellitus complication status: with circulatory complication 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
[2019-12-12] MEDS: SPIRONOLACTONE 25 MG TAB PO SCH (11:46)
--- NOTE | 2019-12-12 12:15 | Electrocardiogram Report ---
Test Reason : Blood Pressure : / mmHG Vent. Rate : 124 BPM Atrial Rate : 127 BPM P-R Int : 000 ms QRS Dur : 110 ms QT Int : 338 ms P-R-T Axes : 000 052 243 degrees QTc Int : 485 ms Atrial fibrillation with premature ventricular or aberrantly conducted complexes Low voltage QRS Septal infarct , age undetermined Abnormal ECG No previous ECGs available Confirmed by Olivier Joe ([id number]) on 12/12/2019 12:15:13 PM Referred By: REFERRED SELF Confirmed By:Olivier Joe
--- NOTE | 2019-12-12 12:16 | Electrocardiogram Report ---
Test Reason : Blood Pressure : / mmHG Vent. Rate : 114 BPM Atrial Rate : 187 BPM P-R Int : 000 ms QRS Dur : 104 ms QT Int : 338 ms P-R-T Axes : 000 052 -59 degrees QTc Int : 465 ms Atrial fibrillation with rapid ventricular response with premature ventricular or aberrantly conducte d complexes Septal infarct (cited on or before 11-DEC-2019) Abnormal ECG When compared with ECG of 11-DEC-2019 16:22, (unconfirmed) No significant change Confirmed by Olivier Joe ([id number]) on 12/12/2019 12:16:13 PM Referred By: REFERRED SELF Confirmed By:Olivier Joe
--- NOTE | 2019-12-12 13:06 | Gastrointestinal Consultation ---
Date of Consultation December 12, 2019 Assessment & Plan (1) Ascites: (2) Hepatic congestion: (3) Elevated liver enzymes: I believe the elevation in his liver panel is most likely secondary to congestive hepatopathy, as well as chronic alcohol abuse. Recommend 100 % abstinence from all alcohol as it is a known liver toxin Recommend a 2 g Na restricted diet Recommend further workup as an outpatient to ensure liver panel normalizes and to evaluate for chronic liver disease. If he does have chronic liver disease, he will need to undergo EGD for variceal screening, routine screening for HCC, as well as receive immunizations as needed to prevent a secondary liver insult. History of Present Illness Reason for Consultation: Elevated LFT's Attending Physician: Taco Artis MD History of Present Illness Tommy Nguyen is a 69 yo male who presented to the ER last night with complaints of SOB with BRENNAN. Upon arrival to the ER he was noted to have an elevated D- dimer as well as grossly elevated BNP. His cardiac workup was negative for ACS and he did undergo CTA of the lungs to evaluate for PE, which was also normal. During his workup, he was noted to have an elevated total bili, AST and ALT, as well as an elevated INR. He does admit to heavy drinking during his lifetime, however, states that he has cut back significantly over the past few years. He states that he has never been told that he had any liver problems. An ultrasound was performed due to elevated liver panel and small amount of ascites seen on CT imaging, however, it did not show any ascites. At present, he denies any chest pain, SOB at rest, jaundice, acholic stools, dark urine, pruritus or fatigue. He does continue to complain of BRENNAN. He denies any fevers, chills, nausea, vomiting, hematemesis, melena, hematochezia or abdominal pain at present. He states that he has noted a reduction in his LE swelling since his arrival last night. He has no further complaints. Allergies Allergy/AdvReac Type Severity Reaction Status Date / Time No Known Allergies Allergy Unverified 12/12/19 09:12 Home Medications Home Medications Medication Instructions Recorded Confirmed Type albuterol sulfate [ProAir HFA] 1 inh INHALATION Q4 12/11/19 12/11/19 History alprazolam 1 mg PO TID 12/11/19 12/11/19 History apixaban [Eliquis] 5 mg PO BID 12/11/19 12/11/19 History [id number]-esphpbyim-cwkqqhsl 1 inh INHALATION DIRECTED 12/11/19 12/11/19 History [Trelegy Ellipta] glipizide 10 mg PO BID 12/11/19 12/11/19 History lisinopril 5 mg PO DAILY 12/11/19 12/11/19 History metformin 1,000 mg PO DAILY 12/11/19 12/11/19 History metoprolol succinate [Toprol XL] 50 mg PO DAILY 12/11/19 12/11/19 History nicotine 1 patch TOPICAL DIRECTED 12/11/19 12/11/19 History simvastatin 80 mg PO DAILY 12/11/19 12/11/19 History Patient History Social History Preferred Language: Indonesian Communication Ability: Effective 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 Beliefs That Will Affect Care: None Current Living Situation: Spouse Other Information That Helps Us Care for You: No Feels Safe at Home: Yes Safety Concerns: Feels Safe At This Time Smoking Status: Former smoker Do You Dip or Chew Tobacco: No ; Smoking End Date: 07/2019 ; Second Hand Exposure: Yes ; Tobacco Cessation Education Requested by Patient: No Hx Alcohol Use: Yes Alcohol type: beer Hx Substance Use: No Review of Systems Constitutional: as per Subjective / HPI Eyes: as per Subjective / HPI Ear, Nose, Mouth, Throat: as per Subjective / HPI Respiratory: as per Subjective / HPI Cardiovascular: as per Subjective / HPI Gastrointestinal: as per Subjective / HPI Musculoskeletal: as per Subjective / HPI Integumentary: as per Subjective / HPI Neurologic: as per Subjective / HPI Psychiatric: as per Subjective / HPI Endocrine: as per Subjective / HPI Hematologic / Lymphatic: as per Subjective / HPI Allergy / Immunological: as per Subjective / HPI Physical Exam Constitutional: + ill appearing (Chronic) and + obese Eyes: PERRL, conjunctivae normal, anicteric sclerae ENMT: external ear and nose normal, oropharynx normal Neck: trachea midline, no thyromegaly Respiratory: no respiratory distress and no labored breathing Auscultation: + diminished lung sounds Cardiovascular: Rate/Rhythm: + tachycardic and + irregularly irregular Heart Sounds: + murmur Gastrointestinal (Abdomen): normal bowel sounds, soft, nontender, no hepatosplenomegaly Musculoskeletal: no cyanosis or clubbing, extremities motor strength 5/5 Skin: no rashes, warm and dry Psychiatric: A+Ox3, euthymic affect Results & Data ([facility]) Vital Signs (Past 12 Hours) Vital Signs Temp Pulse Pulse Resp BP Pulse Ox 12/12/19 11:36 36.5 C 86 18 107/67 92 12/12/19 11:22 82 16 95 12/12/19 08:57 71 12/12/19 07:45 36.5 C 83 18 116/77 90 12/12/19 07:13 65 16 94 12/12/19 06:28 74 128/81 12/12/19 04:00 37.0 C 81 17 114/70 92 12/12/19 03:27 61 16 96 PG Care Time/CCT Total # of Minutes Spent Total Time Spent with Patient: Total time spent is greater than 50% in coordination of care (as documented) at patient's floor/unit and/or counseling patient: Coding Level of Care Code 16832 Initial Inpt Care Lvl 3 Diagnoses Ascites R18.8 Ascites type: other type Hepatic congestion K76.1 Elevated liver enzymes R74.8 (1) Ascites Ascites type: other type Qualified Code(s): R18.8 - Other ascites
--- NOTE | 2019-12-12 18:30 | Hospitalist Progress Note ---
Date of Service December 12, 2019 Assessment & Plan (1) Acute systolic CHF (congestive heart failure): echo: ef 15% diuresing well so far Lasix 40mg IV q12, Aldactone daily, monitor crea continue Metoprolol and Lisinopril declining cardiac cath will need AICD Possible PE - already on Eliquis repeat CT angio in 2 days Urinary Retention - straight cath prn, patient declines indwelling ortiz catheter - will consult Urologist (2) Ascites: Elevated LFTs -- likely hepatic congestion from CHF -Small amount of ascites within the upper abdomen on CTA -obtain abdomen ultrasound--> no ascites INR 1.5 Hep panel pending - monitor LFTs GI consulted (3) COPD (chronic obstructive pulmonary disease) with emphysema: -history of smoking in the past but no longer since June 2019 -use Ellipta inhaler at home, continue -duonebs prn for shortness of breath or wheezing -Moderate emphysema on admission CTA -not in exacerbation (4) Lung nodule: -admission CTA: a 5 mm left upper lobe nodule which is likely benign. A follow-up chest CT in 6 months to ensure stability is recommended. Prominent mediastinal and right hilar lymph nodes which are likely reactive but can be assessed on follow-up chest CT (5) Atrial fibrillation with rapid ventricular response: metoprolol tartrate 25 mg every 8 hours for now, also have 5 mg IV metoprolol every 6 hours prn for heart rates above 110 bpm continue Eliquis (6) longterm (current) use of anticoagulants: -has been on apixaban 5 mg BID since June 2019 for stroke prophylaxis from atrial fibrillation -management as above (7) Renal insufficiency: -admission creatinine 1.44 -unclear as to the baseline renal function -trend renal function while on furosemide - obtain records from PCP (8) Type 2 diabetes mellitus: -patient reports good diabetes mellitus control at home and last known HbA1c as 6 -inpatient HbA1c: pending -hold home dose metformin and glipizide for now, place on sliding scale insulin based on blood sugars [place] Exposure -reports history of [place] exposure in the past when in the Current primary care doctor is Dr. Anders Piper on [address] [place] [address] [place] [address], phone . patient wishes to transfer care to [facility] outpatient clinic. will ask patient to allow get medical release of records. patient also follows with [facility] system Full Code Status [phone], Admission and Anticipated Discharge Date Admission Date: December 11, 2019 Subjective ff up for CHF exacerbation seen sitting up in bed, comfortable, not in distress states his breathing is better, no cough, sputum able to sleep last night no chest pain, dyspnea, palpitations, dizziness no abdominal pain, nausea (+) urinary retention, straight cath performed no other symptoms Review of Systems Review of Systems: All systems reviewed & are unremarkable except as noted in HPI & below Physical Exam Physical Exam: General- oriented x 3, not in distress, speaks in sentences with no effort or accessory muscle use Head- atraumatic Eyes- PERRL, EOMI, anicteric ENT- oropharynx clear Neck- supple, (+) mild JVD, no adenopathy, no thyromegaly; carotids +2/2, no bruits appreciated Lungs- mild rales at the bases no wheezing Heart- normal rate,irregularly irregular rhythm; no murmur, no gallop, no rub appreciated Abdomen- normal bowel sounds, nondistended, soft, nontender, no masses or hepatosplenomegaly (+) umbilical hernia, small Extremities- (+) mild lower leg edema, no calf tenderness; peripheral pulses intact Neuro- alert, oriented x 3; CN 2-12 grossly intact; motor 5/5 bilaterally;sensation 100% on all extremities; no other gross focal neurologic deficits Skin- warm & dry Results & Data Results & Data ([facility]) Vital Signs (Past 12 Hours) Vital Signs Temp Pulse Pulse Resp BP Pulse Ox 12/12/19 15:55 36.6 C 93 H 18 118/82 92 12/12/19 15:53 79 16 95 12/12/19 11:36 36.5 C 86 18 107/67 92 12/12/19 11:22 82 16 95 12/12/19 08:57 71 12/12/19 07:45 36.5 C 83 18 116/77 90 12/12/19 07:13 65 16 94 12/12/19 06:28 74 128/81 Laboratory Results Laboratory Results - last 24 hr 12/11/19 12/12/19 12/12/19 20:56 01:36 06:15 WBC RBC Hgb Hct MCV MCH MCHC RDW Std Deviation RDW Coeff of Tiffany Plt Count MPV Immature Gran % (Auto) Neut % (Auto) Lymph % (Auto) [place] % (Auto) Eos % (Auto) Baso % (Auto) Neut # (Auto) Lymph # (Auto) [place] # (Auto) Eos # (Auto) Baso # (Auto) Immature Gran # (Auto) PT INR APTT PTT Ratio Sodium Potassium Chloride Carbon Dioxide Anion Gap BUN Creatinine Est Cr Clr Drug Dosing Est GFR ( Amer) Est GFR (Non-Af Amer) BUN/Creatinine Ratio Glucose POC Glucose 139 H Estimat Average Glucose Pending Hemoglobin A1c Pending Calcium Phosphorus Magnesium Total Bilirubin AST ALT Alkaline Phosphatase Total Protein Albumin Globulin Albumin/Globulin Ratio Triglycerides Cholesterol LDL Cholesterol, Calc VLDL Cholesterol, Calc HDL Cholesterol Cholesterol/HDL Ratio TSH Urine Color Yellow Urine Appearance Clear Urine pH 5.0 Ur Specific [place] 1.022 Urine Protein 2+ H Urine Glucose (UA) Negative Urine Ketones Negative Urine Blood Negative Urine Nitrite Negative Urine Bilirubin Negative Urine Urobilinogen Negative Ur Leukocyte Esterase Negative Urine WBC (Auto) 1-5 Urine RBC (Auto) 0-4 U Hyaline Cast (Auto) 1-5 U Epithel Cells (Auto) 0-5 Urine Bacteria (Auto) Negative Hepatitis A IgM Ab Hep Bs Antigen Hep B Core IgM Ab Hepatitis C Antibody 12/12/19 12/12/19 12/12/19 06:15 06:15 06:15 WBC 7.91 RBC 3.77 L Hgb 12.4 L Hct 37.5 L MCV 99.5 MCH 32.9 MCHC 33.1 RDW Std Deviation 52.1 H RDW Coeff of Tiffany 14.6 H Plt Count 182 MPV 11.1 H Immature Gran % (Auto) 0.3 Neut % (Auto) 74.1 Lymph % (Auto) 13.7 [place] % (Auto) 11.9 Eos % (Auto) 0.0 Baso % (Auto) 0.0 Neut # (Auto) 5.87 Lymph # (Auto) 1.08 L [place] # (Auto) 0.94 H Eos # (Auto) 0.00 Baso # (Auto) 0.00 Immature Gran # (Auto) 0.02 PT 15.6 H INR 1.5 H APTT 29.7 PTT Ratio 1.1 Sodium 136 Potassium 4.3 Chloride 106 Carbon Dioxide 22 Anion Gap 8.0 BUN 28 H Creatinine 1.36 Est Cr Clr Drug Dosing 57.1 Est GFR ( Amer) 61.5 Est GFR (Non-Af Amer) 53.1 BUN/Creatinine Ratio 20.9 H Glucose 95 POC Glucose Estimat Average Glucose Hemoglobin A1c Calcium 8.6 Phosphorus 4.5 Magnesium 2.2 Total Bilirubin 1.1 H AST 653 H ALT 485 H Alkaline Phosphatase 96 Total Protein 7.0 Albumin 3.4 Globulin 3.6 Albumin/Globulin Ratio 0.9 Triglycerides 57 Cholesterol 92 LDL Cholesterol, Calc 20 VLDL Cholesterol, Calc 11 HDL Cholesterol 61 Cholesterol/HDL Ratio 2 TSH 0.853 Urine Color Urine Appearance Urine pH Ur Specific [place] Urine Protein Urine Glucose (UA) Urine Ketones Urine Blood Urine Nitrite Urine Bilirubin Urine Urobilinogen Ur Leukocyte Esterase Urine WBC (Auto) Urine RBC (Auto) U Hyaline Cast (Auto) U Epithel Cells (Auto) Urine Bacteria (Auto) Hepatitis A IgM Ab Hep Bs Antigen Hep B Core IgM Ab Hepatitis C Antibody 12/12/19 12/12/19 12/12/19 06:15 06:15 07:48 WBC RBC Hgb Hct MCV MCH MCHC RDW Std Deviation RDW Coeff of Tiffany Plt Count MPV Immature Gran % (Auto) Neut % (Auto) Lymph % (Auto) [place] % (Auto) Eos % (Auto) Baso % (Auto) Neut # (Auto) Lymph # (Auto) [place] # (Auto) Eos # (Auto) Baso # (Auto) Immature Gran # (Auto) PT INR APTT PTT Ratio Sodium Potassium Chloride Carbon Dioxide Anion Gap BUN Creatinine Est Cr Clr Drug Dosing Est GFR ( Amer) Est GFR (Non-Af Amer) BUN/Creatinine Ratio Glucose POC Glucose 98 Estimat Average Glucose Hemoglobin A1c Calcium Phosphorus Magnesium Total Bilirubin AST ALT Alkaline Phosphatase Total Protein Albumin Globulin Albumin/Globulin Ratio Triglycerides Cholesterol LDL Cholesterol, Calc VLDL Cholesterol, Calc HDL Cholesterol Cholesterol/HDL Ratio TSH Urine Color Urine Appearance Urine pH Ur Specific [place] Urine Protein Urine Glucose (UA) Urine Ketones Urine Blood Urine Nitrite Urine Bilirubin Urine Urobilinogen Ur Leukocyte Esterase Urine WBC (Auto) Urine RBC (Auto) U Hyaline Cast (Auto) U Epithel Cells (Auto) Urine Bacteria (Auto) Hepatitis A IgM Ab Pending Hep Bs Antigen Neg Hep B Core IgM Ab Pending Hepatitis C Antibody Neg 12/12/19 12/12/19 10:35 16:28 WBC RBC Hgb Hct MCV MCH MCHC RDW Std Deviation RDW Coeff of Tiffany Plt Count MPV Immature Gran % (Auto) Neut % (Auto) Lymph % (Auto) [place] % (Auto) Eos % (Auto) Baso % (Auto) Neut # (Auto) Lymph # (Auto) [place] # (Auto) Eos # (Auto) Baso # (Auto) Immature Gran # (Auto) PT INR APTT PTT Ratio Sodium Potassium Chloride Carbon Dioxide Anion Gap BUN Creatinine Est Cr Clr Drug Dosing Est GFR ( Amer) Est GFR (Non-Af Amer) BUN/Creatinine Ratio Glucose POC Glucose 119 H 108 H Estimat Average Glucose Hemoglobin A1c Calcium Phosphorus Magnesium Total Bilirubin AST ALT Alkaline Phosphatase Total Protein Albumin Globulin Albumin/Globulin Ratio Triglycerides Cholesterol LDL Cholesterol, Calc VLDL Cholesterol, Calc HDL Cholesterol Cholesterol/HDL Ratio TSH Urine Color Urine Appearance Urine pH Ur Specific [place] Urine Protein Urine Glucose (UA) Urine Ketones Urine Blood Urine Nitrite Urine Bilirubin Urine Urobilinogen Ur Leukocyte Esterase Urine WBC (Auto) Urine RBC (Auto) U Hyaline Cast (Auto) U Epithel Cells (Auto) Urine Bacteria (Auto) Hepatitis A IgM Ab Hep Bs Antigen Hep B Core IgM Ab Hepatitis C Antibody (1) Ascites Ascites type: other type Qualified Code(s): R18.8 - Other ascites (2) Type 2 diabetes mellitus Diabetes mellitus intermediate insulin use: without intermediate use Diabetes mellitus complication status: with circulatory complication Diabetes mellitus complication detail: with other circulatory complications Qualified Code(s): E11.59 - Type 2 diabetes mellitus with other circulatory complications
[2019-12-12] MEDS: FUROSEMIDE 40 MG in SYRINGE 0 ML IV SCH (20:29)
[2019-12-13] MEDS: ALBUTEROL HFA 8 GM INHALER INH SCH ×2 (03:43→07:25)
[2019-12-13 06:11] LABS: Estimated Average Glucose 117 mg/dl; Hemoglobin A1C 5.7 % (4.5-5.6)
[2019-12-13] MEDS: METOPROLOL TARTRATE 25 MG TAB PO SCH ×3 (06:41→20:55)
[2019-12-13 07:36] LABS: Basophils # (auto) 0.01 K/uL (0-0.2); Basophils % (auto) 0.2 %; Eosinophils # (auto) 0.09 K/uL (0-0.5); Eosinophils % (auto) 1.4 %; Hematocrit (blood only) 38.3 % (42-52); Hemoglobin 12.4 g/dL (14.0-18.0); Immature Granulocytes # (auto) 0.01 K/uL (0.00-0.02); Immature Granulocytes % (auto) 0.2 %; Lymphocytes # (auto) 1.53 K/uL (1.2-3.4); Lymphocytes % (auto) 24.4 %; Mean Corpuscular Hemoglobin 32.5 pg (25-34); Mean Corpuscular Hgb Conc 32.4 g/dL (32-36); Mean Corpuscular Volume 100.5 fL (80-100); Mean Platelet Volume 10.7 fL (7.4-10.4); Monocytes # (auto) 0.81 K/uL (0.11-0.59); Monocytes % (auto) 12.9 %; Neutrophils # (auto) 3.82 K/uL (1.4-6.5); Neutrophils % (auto) 60.9 %; Platelet Count 199 K/uL (130-400); RDW Coefficient of Variation 14.6 % (11.5-14.5); RDW Standard Deviation 52.7 fL (36.4-46.3); Red Blood Count 3.81 M/uL (4.7-6.1); White Blood Count 6.27 K/uL (4.8-10.8)
[2019-12-13] MEDS ORDERED: ALBUTEROL HFA 8 GM INHALER INH PRN (07:52)
[2019-12-13 08:11] LABS: Albumin Level 3.2 gm/dl (3.4-5.0); BUN Creatinine Ratio 22.8 (10-20); Bilirubin Direct 0.4 mg/dl (0-0.2); Calcium 8.6 mg/dl (8.5-10.1); Creatinine Clr Calc Pharmacy 57.1 ml/min; Est GFR (African American) 61.5; Est GFR (Non-African American) 53.1; Potassium 3.7 mmol/L (3.5-5.1)
[2019-12-13 08:14] LABS: Total Protein 6.6 gm/dl (6.4-8.2)
[2019-12-13] MEDS: NICOTINE 21 MG/24 HR TDSY TD SCH ×2 (09:43)
[2019-12-13] MEDS: SIMVASTATIN 80 MG TAB PO SCH (09:44)
[2019-12-13] MEDS: FUROSEMIDE 40 MG in SYRINGE 0 ML IV SCH ×2 (09:44→20:54)
[2019-12-13] MEDS: lisinopriL 5 MG TAB PO SCH (09:44)
[2019-12-13] MEDS: SPIRONOLACTONE 25 MG TAB PO SCH (09:44)
[2019-12-13] MEDS: FLUTICASONE FUROATE 100MCG 14 PUFFS/INHALER INH SCH (09:45)
[2019-12-13] MEDS: UMECLIDINIUM/VILANTEROL 62.5/25MCG 7 PUFFS/INHALER INH SCH (09:46)
[2019-12-13] MEDS: APIXABAN 5 MG TABLET PO SCH ×2 (09:46→20:54)
[2019-12-13] MEDS: INSULIN ASPART 100 UNITS/ML 3 ML PEN SC SCH ×4 (09:49→20:55)
--- NOTE | 2019-12-13 10:10 | Gastroenterology Progress Note ---
Date of Service December 13, 2019 Assessment & Plan (1) Ascites: (2) Hepatic congestion: (3) Elevated liver enzymes: Liver panel is trending down. Recommend 100 % abstinence from all alcohol as it is a known liver toxin Recommend a 2 g Na restricted diet Stable for discharge from GI standpoint if cleared by primary medicine. Recommend further workup as an outpatient to ensure liver panel normalizes and to evaluate for chronic liver disease. If he does have chronic liver disease, he will need to undergo EGD for variceal screening, routine screening for HCC, as well as receive immunizations as needed to prevent a secondary liver insult. Admission and Anticipated Discharge Date Admission Date: December 11, 2019 Subjective Patient reports mild fatigue but is otherwise asymptomatic. Denies any abdominal pain, n/v, or other GI complaints. AST and ALT are improving. He verbalizes desire to abstain from alcohol upon discharge. Review of Systems Review of Systems: All systems reviewed & are unremarkable except as noted in HPI & below Physical Exam Constitutional: WD/WN, vitals as above Respiratory: normal respiratory effort, lungs clear to auscultation Cardiovascular: RRR, no murmur, no edema Gastrointestinal (Abdomen): normal bowel sounds, soft, nontender, no hepatosplenomegaly Psychiatric: A+Ox3, euthymic affect Results & Data Results & Data ([facility]) Vital Signs (Past 12 Hours) Vital Signs Temp Pulse Resp BP Pulse Ox 12/13/19 07:26 72 18 94 12/13/19 06:41 36.4 C L 67 18 108/65 92 12/13/19 04:00 36.4 C L 73 18 110/62 93 12/12/19 23:14 85 18 95 12/12/19 22:48 36.4 C L 91 H 20 121/90 98 Laboratory Results Abnormal lab results 12/12/19 12/12/19 12/12/19 Range/Units 06:15 10:35 16:28 RBC (4.7-6.1) M/uL Hgb (14.0-18.0) g/dL Hct (42-52) % MCV (80-100) fL RDW Std Deviation (36.4-46.3) fL RDW Coeff of Tiffany (11.5-14.5) % MPV (7.4-10.4) fL [place] # (Auto) (0.11-0.59) K/uL BUN (7-18) mg/dl BUN/Creatinine Ratio (10-20) POC Glucose 119 H 108 H (70-99) mg/dl Hemoglobin A1c 5.7 H (4.5-5.6) % Direct Bilirubin (0-0.2) mg/dl AST (15-37) U/L ALT (12-78) U/L Albumin (3.4-5.0) gm/dl 12/12/19 12/13/19 12/13/19 Range/Units 20:00 07:19 07:19 RBC 3.81 L (4.7-6.1) M/uL Hgb 12.4 L (14.0-18.0) g/dL Hct 38.3 L (42-52) % MCV 100.5 H (80-100) fL RDW Std Deviation 52.7 H (36.4-46.3) fL RDW Coeff of Tiffany 14.6 H (11.5-14.5) % MPV 10.7 H (7.4-10.4) fL [place] # (Auto) 0.81 H (0.11-0.59) K/uL BUN 31 H (7-18) mg/dl BUN/Creatinine Ratio 22.8 H (10-20) POC Glucose 122 H (70-99) mg/dl Hemoglobin A1c (4.5-5.6) % Direct Bilirubin 0.4 H (0-0.2) mg/dl AST 283 H (15-37) U/L ALT 352 H (12-78) U/L Albumin 3.2 L (3.4-5.0) gm/dl 12/13/19 Range/Units 07:22 RBC (4.7-6.1) M/uL Hgb (14.0-18.0) g/dL Hct (42-52) % MCV (80-100) fL RDW Std Deviation (36.4-46.3) fL RDW Coeff of Tiffany (11.5-14.5) % MPV (7.4-10.4) fL [place] # (Auto) (0.11-0.59) K/uL BUN (7-18) mg/dl BUN/Creatinine Ratio (10-20) POC Glucose 106 H (70-99) mg/dl Hemoglobin A1c (4.5-5.6) % Direct Bilirubin (0-0.2) mg/dl AST (15-37) U/L ALT (12-78) U/L Albumin (3.4-5.0) gm/dl PG Care Time/CCT Total # of Minutes Spent Total Time Spent with Patient: Total time spent is greater than 50% in coordination of care (as documented) at patient's floor/unit and/or counseling patient: Coding Level of Care Code 49550 Subseq Hosp Care Lvl 3 Diagnoses Ascites R18.8 Ascites type: other type Hepatic congestion K76.1 Elevated liver enzymes R74.8 (1) Ascites Ascites type: other type Qualified Code(s): R18.8 - Other ascites
--- NOTE | 2019-12-13 11:57 | Cardiology Progress Note ---
Date of Service December 13, 2019 Assessment & Plan (1) Acute on chronic heart failure with reduced ejection fraction and diastolic dysfunction: (2) Atrial fibrillation with rapid ventricular response: (3) Mitral regurgitation: (4) Pleural effusion, bilateral: (5) Ascites: (6) Hepatic congestion: (7) Type 2 diabetes mellitus: (8) Renal insufficiency: Continue IV diuretic therapy, Lasix 40 mg every 12hrs. Patient requesting discharge, however, agreeable to an additional 24 hours of inpatient therapy. Continue metoprolol, Aldactone, Eliquis, and lisinopril as previously ordered. Transition to Toprol-XL 75 mg daily at discharge. Discussed importance of abstaining from all alcohol and tobacco products. Patient admits to recurrent alcohol intake prior to hospitalization. I had a long discussion with the patient regarding indications for cardiac catheterization and ICD implantation. Risks of sudden cardiac reviewed. Patient declines any invasive procedures or testing currently. Agreeable to continue medical therapy. All questions answered to patient satisfaction. I will continue to follow during hospitalization. Subjective Patient seen and examined at the bedside. Fluid balance -1.9 L over the past 24 hours. Respiratory status has improved. Lower extremity edema persist. Patient denies orthopnea or paroxysmal nocturnal dyspnea. Telemetry demonstrates rate controlled atrial fibrillation with occasional premature ventricular complexes, rare ventricular couplets and triplets recorded. Patient denies lightheadedness, dizziness, syncope, or near syncope. Requesting discharge. Tolerating medications listed below. No signs/symptoms of GI/ blood loss. Review of Systems Review of Systems: All systems reviewed & are unremarkable except as noted in HPI & below Physical Exam Constitutional: well developed, well nourished and + ill appearing; no acute distress and not intoxicated appearing Respiratory: normal respiratory effort; no respiratory distress, no labored breathing, no retractions and does not use accessory muscles Auscultation: + diminished lung sounds (Bases bilateral); no crackles, no rales (Bases bilaterally), no rhonchi and no wheezes Cardiovascular: Rate/Rhythm: + irregularly irregular Heart Sounds: normal S1 and normal S2; no murmur Vessels: + JVD, + cranial bruit and radial pulses present; no carotid bruit Extremities: + edema (1+ bilateral pedal and preti bial edema) Gastrointestinal (Abdomen): Inspection/Auscultation: normal bowel sounds; + abdomen abnormal to inspection (Umbilical hernia) Percussion/Palpation: abdomen soft; abdomen nontender, no guarding and abdomen not rigid Musculoskeletal: no cyanosis or clubbing, extremities motor strength 5/5 Extremities: + cyanosis Skin: no rashes, warm and dry Neurologic: CN's II-XI intact bilaterally and moves all extremities; no focal motor deficits Speech / Cognition: normal speech Motor/Sensory: no tremor Psychiatric: A+Ox3, euthymic affect Results & Data Vital Signs (Past 12 Hours) Vital Signs Temp Pulse Resp BP Pulse Ox 12/13/19 07:26 72 18 94 12/13/19 06:41 36.4 C L 67 18 108/65 92 12/13/19 04:00 36.4 C L 73 18 110/62 93 (1) Ascites Ascites type: other type Qualified Code(s): R18.8 - Other ascites (2) Type 2 diabetes mellitus Diabetes mellitus complication detail: with other circulatory complications Diabetes mellitus complication status: with circulatory complication Diabetes mellitus senior living insulin use: without roasterman use Qualified Code(s): E11.59 - Type 2 diabetes mellitus with other circulatory complications (3) Mitral regurgitation Cardiac valve disease etiology: nonrheumatic Qualified Code(s): I34.0 - Nonrheumatic mitral (valve) insufficiency
--- NOTE | 2019-12-13 18:51 | Hospitalist Progress Note ---
Date of Service December 13, 2019 Assessment & Plan (1) Acute systolic CHF (congestive heart failure): echo: ef 15% continues to diurese well Lasix 40mg IV q12, Aldactone daily, monitor crea continue Metoprolol and Lisinopril declining cardiac cath and AICD Possible PE - already on Eliquis Urinary Retention - straight cath prn, patient declines indwelling ortiz catheter - patient denies problems with urination today (2) Ascites: Elevated LFTs -- likely hepatic congestion from CHF -Small amount of ascites within the upper abdomen on CTA -obtain abdomen ultrasound--> no ascites INR 1.5 Hep panel pending - monitor LFTs--> improving GI consulted (3) COPD (chronic obstructive pulmonary disease) with emphysema: -history of smoking in the past but no longer since June 2019 -use Ellipta inhaler at home, continue -duonebs prn for shortness of breath or wheezing -Moderate emphysema on admission CTA -not in exacerbation (4) Lung nodule: -admission CTA: a 5 mm left upper lobe nodule which is likely benign. A follow-up chest CT in 6 months to ensure stability is recommended. Prominent mediastinal and right hilar lymph nodes which are likely reactive but can be assessed on follow-up chest CT (5) Atrial fibrillation with rapid ventricular response: metoprolol tartrate 25 mg every 8 hours for now, also have 5 mg IV metoprolol every 6 hours prn for heart rates above 110 bpm continue Eliquis (6) snf (current) use of anticoagulants: -has been on apixaban 5 mg BID since June 2019 for stroke prophylaxis from atrial fibrillation -management as above (7) Renal insufficiency: -admission creatinine 1.44 -unclear as to the baseline renal function - crea stable - obtain records from PCP (8) Type 2 diabetes mellitus: -patient reports good diabetes mellitus control at home and last known HbA1c as 6 -inpatient HbA1c: 5.7 -hold home dose metformin and glipizide for now, place on sliding scale insulin based on blood sugars [place] Exposure -reports history of [place] exposure in the past when in the Current primary care doctor is Dr. Anders Piper on [address] [place] [address] [place] [address], phone . patient wishes to transfer care to [facility] outpatient clinic. will ask patient to allow get medical release of records. patient also follows with [facility] system Full Code Status [phone], Admission and Anticipated Discharge Date Admission Date: December 11, 2019 Subjective ff up for CHF exacerbation, cardiomyopathy sitting up, having lunch in good spirits breathing continues to improve no chest pain, palpitations, dizziness ambulates in the room with no problems denies problems with urination today no other symptoms Review of Systems Review of Systems: All systems reviewed & are unremarkable except as noted in HPI & below Physical Exam Physical Exam: General- oriented x 3, not in distress, speaks in sentences with no effort or accessory muscle use Eyes- anicteric Neck- no JVD Lungs- mild rales at the bases no wheezing Heart- normal rate, irregularly irregular rhythm; no murmurs Abdomen- normal bowel sounds, nondistended, soft, nontender Extremities- mild lower leg edema, no calf tenderness Neuro- alert, oriented x 3; no gross focal neurologic deficits Skin- warm & dry Results & Data Results & Data ([facility]) Vital Signs (Past 12 Hours) Vital Signs Temp Pulse Pulse Resp BP Pulse Ox 12/13/19 16:17 37.0 C 75 18 130/87 91 12/13/19 12:09 67 12/13/19 11:54 36.9 C 74 16 121/69 99 12/13/19 07:26 72 18 94 (1) Ascites Ascites type: other type Qualified Code(s): R18.8 - Other ascites (2) Type 2 diabetes mellitus Diabetes mellitus group home insulin use: without group home use Diabetes mellitus complication status: with circulatory complication Diabetes mellitus complication detail: with other circulatory complications Qualified Code(s): E11.59 - Type 2 diabetes mellitus with other circulatory complications
[2019-12-13] MEDS: ALPRAZolam 0.5 MG TABLET PO PRN (23:23)
[2019-12-14] MEDS: METOPROLOL TARTRATE 25 MG TAB PO SCH ×2 (05:59→13:03)
[2019-12-14 06:23] LABS: Basophils # (auto) 0.03 K/uL (0-0.2); Basophils % (auto) 0.3 %; Eosinophils # (auto) 0.13 K/uL (0-0.5); Eosinophils % (auto) 1.5 %; Hematocrit (blood only) 39.1 % (42-52); Hemoglobin 12.7 g/dL (14.0-18.0); Immature Granulocytes # (auto) 0.02 K/uL (0.00-0.02); Immature Granulocytes % (auto) 0.2 %; Lymphocytes # (auto) 1.67 K/uL (1.2-3.4); Lymphocytes % (auto) 19.4 %; Mean Corpuscular Hemoglobin 32.8 pg (25-34); Mean Corpuscular Hgb Conc 32.5 g/dL (32-36); Mean Platelet Volume 10.6 fL (7.4-10.4); Monocytes # (auto) 0.94 K/uL (0.11-0.59); Monocytes % (auto) 10.9 %; Neutrophils # (auto) 5.82 K/uL (1.4-6.5); Neutrophils % (auto) 67.7 %; Platelet Count 208 K/uL (130-400); RDW Coefficient of Variation 14.5 % (11.5-14.5); RDW Standard Deviation 52.5 fL (36.4-46.3); Red Blood Count 3.87 M/uL (4.7-6.1); White Blood Count 8.61 K/uL (4.8-10.8)
[2019-12-14 07:04] LABS: BUN Creatinine Ratio 21.8 (10-20); Calcium 8.6 mg/dl (8.5-10.1); Creatinine Clr Calc Pharmacy 57.1 ml/min; Est GFR (African American) 61.5; Est GFR (Non-African American) 53.1; Potassium 3.4 mmol/L (3.5-5.1)
[2019-12-14] MEDS: INSULIN ASPART 100 UNITS/ML 3 ML PEN SC SCH ×2 (07:30→11:44)
[2019-12-14] MEDS ORDERED: POTASSIUM CHLORIDE 20 MEQ TABCR PO STA (07:32)
[2019-12-14] MEDS: NICOTINE 21 MG/24 HR TDSY TD SCH (08:34)
[2019-12-14] MEDS: FLUTICASONE FUROATE 100MCG 14 PUFFS/INHALER INH SCH (08:42)
[2019-12-14] MEDS: UMECLIDINIUM/VILANTEROL 62.5/25MCG 7 PUFFS/INHALER INH SCH (08:42)
[2019-12-14] MEDS: FUROSEMIDE 40 MG in SYRINGE 0 ML IV SCH (08:42)
--- NOTE | 2019-12-14 08:42 | Urology Consultation ---
Date of Consultation December 14, 2019 Assessment & Plan (1) Urinary retention: 69yo/M with multiple comorbidities admitted for acute exacerbation of CHF with subsequent episode of urinary retention. -Patient now voiding without difficulty -Offered initiation of Flomax - Patient declined -Continue PVR and straight cath PRN -Will follow-up with Urology service as outpatient in 1-2 weeks -Patient is agreeable to above plan. All questions were answered. Thank you for allowing us to participate in the acute care of Mr. Nguyen. Please reconsult us with additional questions, concerns or changes in patient status. History of Present Illness Reason for Consultation: Urinary Retention Attending Physician: Taco Artis MD History of Present Illness Patient is a 69-year-old male with a past medical history of COPD, AFib on Eliquis, and DM who presented to the ER with complaints of SOB and BRENNAN and was admitted for acute systolic CHF and ascites and later developed urinary retention. Patient has not been seen by Urology in the past. Patient has a recent history of urinary retention requiring an indwelling c atheter for a period of time in June 2019. Denies personal and family history of prostate, bladder, or kidney cancers. Chart Review: Afebrile WBC (12/13)- 8.61 HgB (12/13)- 12.7 Cr (12/13)- 1.36 UA - 2+Protein, No blood, Leuks, or Nitrites Straight Cath on 12/11 for a bladder scan of 903 Patient examined at bedside. He is doing well overall. He has been voiding without difficulty since the straight catheterization on 12/11. Has voided 1000cc with most recent shift. He denies any fevers or chills. Denies hematuria and dysuria. At baseline, he reports a good stream with some urgency. Denies issues with urinary hesitancy, frequency, or dribbling. Patient states he is able to hold a large amount of urine in his bladder. He does not get up at night. He is unsure of the date for his last PSA or GORGE. Not currently on any urinary medications. SOB improving with medical management. Denies additional Urological concerns. Allergies Allergy/AdvReac Type Severity Reaction Status Date / Time No Known Allergies Allergy Unverified 12/12/19 09:12 Home Medications Home Medications Medication Instructions Recorded Confirmed Type albuterol sulfate [ProAir HFA] 1 inh INHALATION Q4 12/11/19 12/11/19 History alprazolam 1 mg PO TID 12/11/19 12/11/19 History apixaban [Eliquis] 5 mg PO BID 12/11/19 12/11/19 History kqlbfetyppm-woktydvjr-zhxtliav 1 inh INHALATION DIRECTED 12/11/19 12/11/19 History [Trelegy Ellipta] glipizide 10 mg PO BID 12/11/19 12/11/19 History lisinopril 5 mg PO DAILY 12/11/19 12/11/19 History metformin 1,000 mg PO DAILY 12/11/19 12/11/19 History nicotine 1 patch TOPICAL DIRECTED 12/11/19 12/11/19 History simvastatin 80 mg PO DAILY 12/11/19 12/11/19 History furosemide [Lasix] 40 mg PO DAILY #30 tab 12/14/19 Rx metoprolol succinate [Toprol XL] 75 mg PO DAILY #90 tab 12/14/19 Rx spironolactone 25 mg PO QAM #30 tab 12/14/19 Rx Patient History Social History Preferred Language: Persian Communication Ability: Effective 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 Beliefs That Will Affect Care: None marital status: Current Living Situation: Spouse Other Information That Helps Us Care for You: No Feels Safe at Home: Yes Safety Concerns: Feels Safe At This Time Smoking Status: Former smoker Do You Dip or Chew Tobacco: No ; Smoking End Date: 07/2019 ; Second Hand Exposure: Yes ; Tobacco Cessation Education Requested by Patient: No Hx Alcohol Use: Yes Alcohol type: beer Hx Substance Use: No Review of Systems Review of Systems: All systems reviewed & are unremarkable except as noted in HPI & below Physical Exam Constitutional: well developed and well nourished; no acute distress Eyes: no eyelid abnormality ENMT: Ears: no hearing impairment Neck: normal visual inspection; no anterior neck swelling Respiratory: normal respiratory effort and able to speak in complete sentences Cardiovascular: Vessels: radial pulses present Gastrointestinal (Abdomen): Percussion/Palpation: abdomen soft; abdomen nontender and no guarding Musculoskeletal: Head/Neck/Chest: normocephalic Extremities: extremities normal to inspection; no cyanosis Skin: no rashes, warm and dry normal color to exposed skin areas Neurologic: moves all extremities and awake; not confused Psychiatric: Orientation: alert, oriented x 3 and cooperative Genitourinary: no CVA tenderness Dark, yellow urine noted in urinal Results & Data Vital Signs (Past 12 Hours) Vital Signs Temp Pulse Pulse Resp BP Pulse Ox 12/14/19 07:34 36.8 C 69 18 135/87 93 12/14/19 03:15 36.8 C 70 17 109/68 95 12/13/19 23:26 36.5 C 73 19 116/85 94 12/13/19 23:00 68 12/13/19 20:45 94 H PG Care Time/CCT Total # of Minutes Spent Total Time Spent with Patient: Total time spent is greater than 50% in coordination of care (as documented) at patient's floor/unit and/or counseling patient: Coding Level of Care Code 46279 Initial Inpt Care Lvl 2 Diagnoses Urinary retention R33.9
[2019-12-14] MEDS: lisinopriL 5 MG TAB PO SCH (08:43)
[2019-12-14] MEDS: APIXABAN 5 MG TABLET PO SCH (08:44)
[2019-12-14] MEDS: SPIRONOLACTONE 25 MG TAB PO SCH (08:45)
[2019-12-14] MEDS: SIMVASTATIN 80 MG TAB PO SCH (08:46)
--- NOTE | 2019-12-14 10:53 | Cardiology Progress Note ---
Date of Service December 14, 2019 Assessment & Plan (1) Acute on chronic heart failure with reduced ejection fraction and diastolic dysfunction: (2) Atrial fibrillation with rapid ventricular response: (3) Mitral regurgitation: (4) Pleural effusion, bilateral: (5) Ascites: (6) Hepatic congestion: (7) Type 2 diabetes mellitus: (8) Renal insufficiency: Transition patient to oral furosemide 40 mg daily. Oral potassium supplementation ordered today. Repeat basic metabolic panel in 1 week. Transition metoprolol tartrate to succinate formulation. Continue Aldactone, Eliquis, and lisinopril as previously ordered. Consider transition of lisinopril to Entresto during outpatient follow-up. Discussed importance of abstaining from all alcohol and tobacco products. I had a long discussion with the patient and his regarding indications for cardiac catheterization and ICD implantation. Patient declines invasive procedures or testing at this time. Agreeable to medical therapy and close cardiology follow-up. Subjective Patient seen and examined at the bedside. Edema improved. Denies orthopnea or paroxysmal nocturnal dyspnea. Reports improved functional capacity. Denies chest pain or palpitations. Telemetry demonstrates atrial fibrillation with fair rate control. No lightheadedness, dizziness, syncope, or near syncope. is present at bedside. She has questions regarding medications and potential cardiac catheterization. Patient offers no other concerns/complaints at this time. Review of Systems Review of Systems: All systems reviewed & are unremarkable except as noted in HPI & below Physical Exam Constitutional: well developed, well nourished and + ill appearing; no acute distress and not intoxicated appearing Respiratory: normal respiratory effort; no respiratory distress, no labored breathing, no retractions and does not use accessory muscles Auscultation: + diminished lung sounds (Bases bilateral); no crackles, no rales (Bases bilaterally), no rhonchi and no wheezes Cardiovascular: Rate/Rhythm: + irregularly irregular Heart Sounds: normal S1 and normal S2; no murmur Vessels: + cranial bruit and radial pulses present; no JVD and no carotid bruit Extremities: + edema (Trace to mild bilateral pedal and ankle edema) Gastrointestinal (Abdomen): Inspection/Auscultation: normal bowel sounds; + abdomen abnormal to inspection (Umbilical hernia) Percussion/Palpation: abdomen soft; abdomen nontender, no guarding and abdomen not rigid Musculoskeletal: no cyanosis or clubbing, extremities motor strength 5/5 Extremities: + cyanosis Skin: no rashes, warm and dry Neurologic: CN's II-XI intact bilaterally and moves all extremities; no focal motor deficits Speech / Cognition: normal speech Motor/Sensory: no tremor Psychiatric: A+Ox3, euthymic affect Results & Data Vital Signs (Past 12 Hours) Vital Signs Temp Pulse Pulse Pulse Pulse Pulse Resp 12/14/19 10:28 106 H 71 70 12/14/19 07:34 36.8 C 69 18 12/14/19 03:15 36.8 C 70 17 12/13/19 23:26 36.5 C 73 19 12/13/19 23:00 68 Resp Resp BP Pulse Ox Pulse Ox Pulse Ox Pulse Ox 12/14/19 10:28 18 18 91 96 98 12/14/19 07:34 135/87 93 12/14/19 03:15 109/68 95 12/13/19 23:26 116/85 94 12/13/19 23:00 (1) Mitral regurgitation Cardiac valve disease etiology: nonrheumatic Qualified Code(s): I34.0 - Nonrheumatic mitral (valve) insufficiency (2) Ascites Ascites type: other type Qualified Code(s): R18.8 - Other ascites (3) Type 2 diabetes mellitus Diabetes mellitus group home insulin use: without remote computer terminal operator use Diabetes mellitus complication status: with circulatory complication Diabetes mellitus complication detail: with other circulatory complications Qualified Code(s): E11.59 - Type 2 diabetes mellitus with other circulatory complications
[2019-12-14 11:23] LABS: Hepatitis A Antibody IgM NON-REACTIVE (NON-REACTIVE); Hepatitis B Core Antibody IgM NON-REACTIVE (NON-REACTIVE)
--- NOTE | 2019-12-14 12:05 | Hospitalist Progress Note ---
Date of Service December 14, 2019 Assessment & Plan (1) Acute on chronic heart failure with reduced ejection fraction and diastolic dysfunction: (1) Acute systolic and diastolic CHF (congestive heart failure): echo: ef 15% diuresed well Lasix 40mg IV q12--> lasix 40mg po daily Aldactone daily continue Metoprolol succinate, increase to 75mg daily continue usual Lisinopril declining cardiac cath and AICD per Dr. Ramachandran's notes: "Consider transition of lisinopril to Entresto during outpatient follow-up. Discussed importance of abstaining from all alcohol and tobacco products. I had a long discussion with the patient and his regarding indications for cardiac catheterization and ICD implantation. Patient declines invasive procedures or testing at this time. Agreeable to medical therapy and close cardiology follow-up." Possible PE - already on Eliquis Urinary Retention - straight cath prn, patient declines indwelling ortiz catheter - patient denies problems with urination during admission Urologist consulted, no further interventions at this time ff up with [facility] [place]-2 weeks (2) Ascites: Elevated LFTs -- likely hepatic congestion from CHF -Small amount of ascites within the upper abdomen on CTA -obtain abdomen ultrasound--> no ascites INR 1.5 Hep panel pending - monitor LFTs--> improving GI consulted monitor LFTs as outpatient (3) COPD (chronic obstructive pulmonary disease) with emphysema: -history of smoking in the past but no longer since June 2019 -use Ellipta inhaler at home, continue -duonebs prn for shortness of breath or wheezing -Moderate emphysema on admission CTA -not in exacerbation (4) Lung nodule: -admission CTA: a 5 mm left upper lobe nodule which is likely benign. A follow-up chest CT in 6 months to ensure stability is recommended. 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: -has been on apixaban 5 mg BID since June 2019 for stroke prophylaxis from atrial fibrillation -management as above (7) Renal insufficiency: -admission creatinine 1.44 -unclear as to the baseline renal function - crea stable - obtain records from PCP (8) Type 2 diabetes mellitus: -patient reports good diabetes mellitus control at home and last known HbA1c as 6 -inpatient HbA1c: 5.7 -hold home dose metformin and glipizide for now, place on sliding scale insulin based on blood sugars Agent [place] Exposure -reports history of Agent [place] exposure in the past when in the Current primary care doctor is Dr. Anders Piper on [address] [place] [address] [place] [id number], phone . patient wishes to transfer care to [facility] outpatient clinic. will ask patient to allow get medical release of records. patient also follows with [facility] medical system Full Code Status [phone], Admission and Anticipated Discharge Date Admission Date: December 11, 2019 Subjective ff up for CHF, Cardiomyopathy seen resting in bed, sitting up , comfortable visiting at the bedside states he feels much better overall denies shortness of breath, palpitations, chest pain, dizziness ambulated in the halls with PT, no problems no problems with urination no other symptoms states he is ready and would like to be discharged today Review of Systems Review of Systems: All systems reviewed & are unremarkable except as noted in HPI & below Physical Exam Physical Exam: General- oriented x 3, not in distress, speaks in sentences with no effort or accessory muscle use Eyes- anicteric Neck- no JVD Lungs- clear breath sounds bilaterally, no rales/wheezes Heart- normal rate, irregularly irregular rhythm; no murmurs Abdomen- normal bowel sounds, nondistended, soft, nontender Extremities-trace pretibial edema, no calf tenderness Neuro- alert, oriented x 3; no gross focal neurologic deficits Skin- warm & dry Results & Data Results & Data ([facility]) Vital Signs (Past 12 Hours) Vital Signs Temp Pulse Pulse Pulse Pulse Resp Resp 12/14/19 11:28 36.8 C 116 H 18 12/14/19 10:28 106 H 71 70 18 12/14/19 07:34 36.8 C 69 18 12/14/19 03:15 36.8 C 70 17 Resp BP Pulse Ox Pulse Ox Pulse Ox Pulse Ox 12/14/19 11:28 116/73 96 12/14/19 10:28 18 91 96 98 07/07/20 07:34 135/87 93 12/14/19 03:15 109/68 95 Laboratory Results Laboratory Results - last 24 hr 12/12/19 12/13/19 12/13/19 06:15 16:31 20:42 WBC RBC Hgb Hct MCV MCH MCHC RDW Std Deviation RDW Coeff of Tiffany Plt Count MPV Immature Gran % (Auto) Neut % (Auto) Lymph % (Auto) Norton % (Auto) Eos % (Auto) Baso % (Auto) Neut # (Auto) Lymph # (Auto) Norton # (Auto) Eos # (Auto) Baso # (Auto) Immature Gran # (Auto) Sodium Potassium Chloride Carbon Dioxide Anion Gap BUN Creatinine Est Cr Clr Drug Dosing Est GFR ( Amer) Est GFR (Non-Af Amer) BUN/Creatinine Ratio Glucose POC Glucose 129 H 120 H Calcium Magnesium Hepatitis A IgM Ab NON-REACTIVE Hep B Core IgM Ab NON-REACTIVE 12/14/19 12/14/19 12/14/19 05:54 05:54 05:54 WBC 8.61 RBC 3.87 L Hgb 12.7 L Hct 39.1 L MCV 101.0 H MCH 32.8 MCHC 32.5 RDW Std Deviation 52.5 H RDW Coeff of Tiffany 14.5 Plt Count 208 MPV 10.6 H Immature Gran % (Auto) 0.2 Neut % (Auto) 67.7 Lymph % (Auto) 19.4 Norton % (Auto) 10.9 Eos % (Auto) 1.5 Baso % (Auto) 0.3 Neut # (Auto) 5.82 Lymph # (Auto) 1.67 Norton # (Auto) 0.94 H Eos # (Auto) 0.13 Baso # (Auto) 0.03 Immature Gran # (Auto) 0.02 Sodium 140 Potassium 3.4 L Chloride 103 Carbon Dioxide 31 Anion Gap 6.0 BUN 30 H Creatinine 1.36 Est Cr Clr Drug Dosing 57.1 Est GFR ( Amer) 61.5 Est GFR (Non-Af Amer) 53.1 BUN/Creatinine Ratio 21.8 H Glucose 87 POC Glucose Calcium 8.6 Magnesium 2.1 Hepatitis A IgM Ab Hep B Core IgM Ab 12/14/19 12/14/19 07:21 11:41 WBC RBC Hgb Hct MCV MCH MCHC RDW Std Deviation RDW Coeff of Tiffany Plt Count MPV Immature Gran % (Auto) Neut % (Auto) Lymph % (Auto) Norton % (Auto) Eos % (Auto) Baso % (Auto) Neut # (Auto) Lymph # (Auto) Norton # (Auto) Eos # (Auto) Baso # (Auto) Immature Gran # (Auto) Sodium Potassium Chloride Carbon Dioxide Anion Gap BUN Creatinine Est Cr Clr Drug Dosing Est GFR ( Amer) Est GFR (Non-Af Amer) BUN/Creatinine Ratio Glucose POC Glucose 124 H 127 H Calcium Magnesium Hepatitis A IgM Ab Hep B Core IgM Ab
--- NOTE | 2019-12-14 18:49 | Discharge Summary ---
Date of Service December 14, 2019 Admission HPI Per Admitting Provider -patient reports shortness of breath episode the night before hospital presentation -he reports recent outpatient pulmonary function study but never diagnosed with obstructive sleep apnea -does not use home oxygen or CPAP at home no chest pain, no dizziness, no lightheadedness, no vomiting, no abdomen pain, no problems with bowel movement, no problems with urination. reports good diabetes control at home. reports adherence to cardiac medications and systemic anticoagulation with apixaban however no longer taking furosemide. reports recent outpatient pulmonary function tested completed but patient does not know the results. denies palpitations, but found to have fast heart rate with known atrial fibrillation in the ED. on room air, was given Lasix 20 mg IV x 1 in the ED. patient admitted for further cardiac workup and because emergency room doctor uncertain on whether CTA scan suggestive of pulmonary embolism or not Allergies: denies any known allergies to drugs or medications Family History father had stroke and mother had cancer, patient denies any personal history of stroke or cancer Primary Care Provider: Anders Piper Admission Exam Per Admitting Provider Constitutional: comfortable Eyes: PERRL, conjunctivae normal, anicteric sclerae EOM intact bilaterally ENMT: external ear and nose normal, oropharynx normal Neck: trachea midline, no thyromegaly normal visual inspection Respiratory: normal respiratory effort no wheezing Cardiovascular: Rate/Rhythm: + tachycardic and + irregularly irregular Gastrointestinal (Abdomen): appears distended, there is umbilical hernia Musculoskeletal: Head/Neck/Chest: normocephalic and head atraumatic Neurologic: PERRL, EOMI, accommodation nl, no face palsy, no dysarthria CN's II-XI intact bilaterally Psychiatric: A+Ox3, euthymic affect Principal Diagnosis Acute on chronic heart failure with reduced ejection fraction and diastolic dysfunction: Discharge Exam General- oriented x 3, not in distress, speaks in sentences with no effort or accessory muscle use Eyes- anicteric Neck- no JVD Lungs- clear breath sounds bilaterally, no rales/wheezes Heart- normal rate, irregularly irregular rhythm; no murmurs Abdomen- normal bowel sounds, nondistended, soft, nontender Extremities-trace pretibial edema, no calf tenderness Neuro- alert, oriented x 3; no gross focal neurologic deficits Skin- warm & dry Discharge Data Allergies Allergy/AdvReac Type Severity Reaction Status Date / Time No Known Allergies Allergy Unverified 12/12/19 09:12 Consultations 12/11/19 19:00 ED Decision to Admit Stat 12/11/19 19:39 Consult Cardiology Routine 12/11/19 21:14 Consult Health Information Management Routine 12/12/19 10:36 Consult Gastroenterology Routine 12/13/19 19:23 Consult Urology Routine Ordered Studies 12/11/19 17:53 CT angio chest PE protocol Stat FINDINGS: Evaluation is difficult given suspected mixing artifact within the right and left pulmonary arteries as well as multiple segmental pulmonary arter ies, most notably within the right lower lobe. Apparent pulmonary emboli within the right lower lobe likely reflect mixing artifact. Heart is moderately enlarged. There is no pericardial effusion. There are several mildly enlarged mediastinal lymph nodes. Small to moderate right pleural effusion is noted. There is a small left pleural effusion. There is no pneumothorax. Moderate upper lobe predominant emphysema is noted. A 5 mm left upper lobe nodule on image 241 of [id number] is noted. The central airways are patent. Right lung opacities favor atelectasis. There is no consolidation to suggest pneumonia. There is mild interlobular septal thickening. A few old bilateral rib fractures are noted. A small amount of ascites within the upper abdomen is noted. IMPRESSION: 1. Apparent filling defects within the pulmonary arteries, most notably within the right pulmonary artery and numerous segmental branches of the right lower lobe. The findings are likely due to mixing artifact. Pulmonary emboli could appear similar but are considered less likely. A repeat CT is recommended. 2. Small to moderate right pleural effusion. Small left pleural effusion. Mild interstitial pulmonary edema. 3. Moderate cardiomegaly. 4. Right lung airspace opacities suggestive of atelectasis. No consolidation to suggest pneumonia. 5. Small amount of ascites within the upper abdomen. 6. Moderate emphysema. 7. 5 mm left upper lobe nodule which is likely benign. A follow-up chest CT in 6 months to ensure stability is recommended. Prominent mediastinal and right hilar lymph nodes which are likely reactive but can be assessed on follow-up chest CT. 12/11/19 19:40 US venous doppler LE BI Routine FINDINGS: The bilateral common femoral, superficial femoral and popliteal veins were compressible. Augmentation was normal. Flow was shown within the deep calf vessels. IMPRESSION: No evidence of deep venous thrombus within the bilateral lower extremities. 12/11/19 19:48 US abdomen ltd ascites Routine FINDINGS: No ascites was identified within the abdomen or pelvis. IMPRESSION: No ascites identified. Hospital Course (1) Acute on chronic heart failure with reduced ejection fraction and diastolic dysfunction: (1) Acute systolic and diastolic CHF (congestive heart failure): Echo: Left ventricle is severely dilated, fraction 15 to 20%, severe global hypokinesis of the left ventricle, right ventricular systolic function is moderately reduced Stratigraphy Teacher consulted Dr. White Diuresed well with IV Lasix and Aldactone discharge plan: Lasix 40mg po daily Aldactone 25mg po daily increase Metoprolol succinate to 75mg daily continue usual Lisinopril patient declining cardiac cath and AICD placement at this time per Dr. White's notes: "Consider transition of lisinopril to Entresto during outpatient follow-up. Discussed importance of abstaining from all alcohol and tobacco products. I had a long discussion with the patient and his regarding indications for cardiac catheterization and ICD implantation. Patient declines invasive procedures or testing at this time. Agreeable to medical therapy and close cardiology follow-up." Abnormal CT chest Possible Pulmonary Embolism - CT Angio: 1. Apparent filling defects within the pulmonary arteries, most notably within the right pulmonary artery and numerous segmental branches of the right lower lobe. The findings are likely due to mixing artifact. Pulmonary emboli could appear similar but are considered less likely. A repeat CT is recommended. 2. Small to moderate right pleural effusion. Small left pleural effusion. Mild interstitial pulmonary edema. 3. Moderate cardiomegaly. 4. Right lung airspace opacities suggestive of atelectasis. No consolidation to suggest pneumonia. 5. Small amount of ascites within the upper abdomen. 6. Moderate emphysema. 7. 5 mm left upper lobe nodule which is likely benign. A follow-up chest CT in 6 months to ensure stability is recommended. Prominent mediastinal and right hilar lymph nodes which are likely reactive but can be assessed on follow-up chest CT. -- no respiratory symptoms --already on Eliquis repeat CT chest in 6 months to ff up left upper lobe nodule Urinary Retention - straight cath prn, patient declines indwelling ortiz catheter - patient denies problems with urination during admission Urologist consulted, no further interventions at this time [place] [facility] [facility] [place]2 [place] (2) Ascites: Elevated LFTs - likely hepatic congestion from CHF -Small amount of ascites within the upper abdomen on CTA -abdomen ultrasound--> no ascites INR 1.5 Hep panel negative - monitor LFTs--> improving GI consulted monitor LFTs as outpatient (3) COPD (chronic obstructive pulmonary disease) with emphysema: -history of smoking in the past but no longer since June 2019 -use Ellipta inhaler at home, continue -duonebs prn for shortness of breath or wheezing -Moderate emphysema on admission CTA -not in exacerbation (4) Lung nodule: -admission CTA: a 5 mm left upper lobe nodule which is likely benign. A follow-up chest CT in 6 months to ensure stability is recommended. 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: -has been on apixaban 5 mg BID since June 2019 for stroke prophylaxis from atrial fibrillation (7) Renal insufficiency: -admission creatinine 1.44 -unclear as to the baseline renal function - crea stable - obtain records from PCP (8) Type 2 diabetes mellitus: -patient reports good diabetes mellitus control at home and last known HbA1c as 6 -inpatient HbA1c: 5.7 -continue metformin and glipizide [place] Exposure -reports history of [place] exposure in the past when in the Disposition ff up with PCP, Stratigraphy Teacher, Urologist as per [place] instructions home health services arranged Total Time Total Time Spent Total Time Spent (In Minutes): 60 minutes Discharge Plan Discharge Items Patient Disposition: Home - Home Health Services Reason For Visit: SOB, AFIB RVR CHF Discharge Diagnosis: ACUTE CONGESTIVE HEART FAILURE EXACERBATION ATRIAL FIBRILLATION Activity: Resume your previous activity Activity Comment: RESUME ACTIVITY GRADUALLY, TOLERATED, NO HEAVY EXERTION Lifting: Wait until after follow-up appointment Bathing: No limitations Bathing Comment: NO BATHING IN TUB OR POOLS Exercise/Sports: Wait until after follow-up appointment Driving/Machine Use: NO DRIVING UNTIL RE-EVALUATED AND ALLOWED BY PRIMARY CARE PHYSICIAN Non-emergency contact: Primary Care Provider and Stratigraphy Teacher Call non-emergency contact if: you have any medication questions, your symptoms worsen and you have a fever Follow-up/Referrals: Abel De La Rosa MD [Physician] - (DR. DE LA ROSA'S OFFICE WILL CALL WITH APPOINTMENT) Nicho White DO [Stratigraphy Teacher] - 12/24/19 9:00 am Anders Piper [Primary Care Provider] - 12/21/19 2:00 pm Diet: Carb Consistent or DM2 and Heart Healthy Addtl Attending Provider Instructions: PLEASE REVIEW YOUR NEW MEDICATION LIST AND FOLLOW INSTRUCTIONS CAREFULLY. YOUR NEW MEDICATIONS INCLUDE: LASIX, AND ALDACTONE- diuretic to promote urination, remove excess fluid in your bod INCREASE METOPROLOL XL FROM 50MG TO 75MG PO DAILY SALT RESTRICTION : LESS THAN 2 GRAMS PER DAY FLUID RESTRICTION: MAXIMUM 2 LITERS PER DAY FOLLOW UP WITH PRIMARY CARE PHYSICIAN IN 1 WEEK. FOLLOW UP WITH [facility]UCLE[facility] OPERATOR DR. NICHO WHITE IN 1-2 WEEKS. FOLLOW UP WITH [facility] UROLOGIST DR. STEPHAN DE LA ROSA IN 1-2 WEEKS. PLEASE CALL THEIR OFFICE TO SET UP AN APPOINTMENT. CONTACT INFORMATION NOTED ABOVE. Call your Primary Care doctor if any of the following symptoms or problems start or get worse: Shortness of breath or difficulty breathing Wake up at night short of breath Chest pain Cough Swelling of your hands, feet, or legs More fatigued or tired with your normal activity Palpitations - sudden fast heart beats Problems with urination, decreasing urine output WEIGHT Weigh yourself every morning after using the bathroom. Use the same scale. Wear the same amount of clothing. Write your weight down on a chart. Call your Primary Care doctor if you gain more than 2-3 pounds in 1-2 days. MEDICATIONS Use this discharge instruction sheet for medication instructions. Take your medications at the time your doctor ordered. Do not skip a dose of your medicines. If you miss a dose of medicine, take it as soon as possible, but DO NOT DO UBLE A DOSE. Read your medicine information when you get home. Know all of the side effects of your medicine. If in doubt, ask your pharmacist Call your Primary Care doctor's office if you have any side effects. Be sure all of your doctors know what medicine and herbs you take (including cold, flu, and herbal medicine). Take the following with you to your follow-up doctor appointments: Weight Chart Medication List List of questions Do not drink excessive alcohol, beer or wine. Who to Call and When: Call 911 or go to the Emergency Room if: If at any time you feel your situation is an emergency You have tightness or pain in your chest that does not go away with rest or Nitroglycerin You are very short of breath even with rest. Pending Studies at Discharge: Yes Studies:: REPEAT BLOOD WORK- BASIC METABOLIC PROFILE AND LIVER PROFILE- C/O PRIMARY CARE PHYSICIAN IN [address] SCAN OF THE CHEST IN 6 MONTHS TO FOLLOW UP LEFT LUNG NODULE, C/O PRIMARY CARE PHYSICIAN. Stand-Alone Forms: My [facility], Smoking Cessation Medications and DC Order Prescriptions: New metoprolol succinate [Toprol XL] 25 mg tablet extended release 24 hr 75 mg PO DAILY Qty: 90 RF: 0 spironolactone 25 mg Tablet 25 mg PO QAM Qty: 30 RF: 2 furosemide [Lasix] 40 mg tablet 40 mg PO DAILY Qty: 30 RF: 2 Continued nicotine 14 mg/24 hr patch 24 hour 1 patch topical DIRECTED RF: 0 alprazolam 1 mg tablet 1 mg PO TID RF: 0 glipizide 10 mg tablet 10 mg PO BID RF: 0 simvastatin 80 mg tablet 80 mg PO DAILY RF: 0 metformin 1,000 mg tablet 1,000 mg PO DAILY RF: 0 albuterol sulfate [ProAir HFA] 90 mcg/actuation HFA aerosol inhaler 1 inh INHALATION Q4 RF: 0 Eliquis 5 mg tablet 5 mg PO BID RF: 0 Trelegy Ellipta 100-62.5-25 mcg blister with device 1 inh inhalation DIRECTED RF: 0 lisinopril 5 mg tablet 5 mg PO DAILY RF: 0 Discontinued metoprolol succinate [Toprol XL] 50 mg tablet extended release 24 hr 50 mg PO DAILY RF: 0 Discharge Orders: Discharge Order (Routine); Ordered 12/14/19 Ordered By: Taco Artis Admission Data Admit Date/Time: 12/11/19 19:50 Attending Provider: Taco Artis Admit Provider: Buster Barrett Primary Care Provider: Anders Piper Other Providers: Buster Barrett ; Nicho White ; Tommy Lockett ; Abel Knox Other Interventions: Discharge Summary Assessment (RN) Last Done: 12/14/19 12:16 DC Date/Time DO NOT enter until pt leaves facility: 12/14/19 13:31
== END 2019-12-14 13:31 | disposition home health service (06) | DRG 291 ==
LOC: ED 16:01 → 2S 19:50 → SUATTDRO 19:50 → 2S 20:35

== ENCOUNTER 2020-12-13 15:40 | Inpatient (IN) ==
[2020-12-13] MEDS ORDERED: FUROSEMIDE 40 MG/4 ML VIAL IV STA (17:36)
[2020-12-13 18:02] LABS: Basophils # (auto) 0.02 K/uL (0-0.2); Basophils % (auto) 0.3 %; Eosinophils # (auto) 0.12 K/uL (0-0.5); Eosinophils % (auto) 1.9 %; Hematocrit (blood only) 41.3 % (42-52); Hemoglobin 13.8 g/dL (14.0-18.0); Immature Granulocytes # (auto) 0.02 K/uL (0.00-0.02); Immature Granulocytes % (auto) 0.3 %; Lymphocytes # (auto) 1.37 K/uL (1.2-3.4); Lymphocytes % (auto) 21.5 %; Mean Corpuscular Hemoglobin 31.6 pg (25-34); Mean Corpuscular Hgb Conc 33.4 g/dL (32-36); Mean Corpuscular Volume 94.5 fL (80-100); Mean Platelet Volume 11.1 fL (7.4-10.4); Monocytes # (auto) 0.69 K/uL (0.11-0.59); Monocytes % (auto) 10.8 %; Neutrophils # (auto) 4.15 K/uL (1.4-6.5); Neutrophils % (auto) 65.2 %; Platelet Count 204 K/uL (130-400); RDW Coefficient of Variation 14.3 % (11.5-14.5); RDW Standard Deviation 49.1 fL (36.4-46.3); Red Blood Count 4.37 M/uL (4.7-6.1); White Blood Count 6.37 K/uL (4.8-10.8)
--- NOTE | 2020-12-13 18:03 | Emergency Department Note ---
Impression & Plan SOB (shortness of breath), Fluid overload, Pedal edema, Acute urinary retention ED Provider Note NAME: DELMY JENNINGS AGE: 70 SEX: M : 1950 ARRIVES VIA: Walk-In INFORMANT: [Patient] ED PROVIDER(S): [Teodoro Monsalve MD] CHIEF COMPLAINT: Edema HISTORY OF PRESENT ILLNESS: The patient is a 70-year-old male who states he has had 3 weeks of increasing edema of his lower extremities. He is also been more short of breath. He has to sleep with his head elevated. There has been no fever, no cough or congestion. He does have some abdominal distention but he states this is baseline. He admits to a decreased urinary stream and he does not believe his Lasix is working as well as it used to. The patient does have issues with pedal edema, he has issues with his heart and also his liver. He states that he has been hospitalized before for this type of edema. REVIEW OF SYSTEMS: See HPI for pertinent positives and negatives. A total of ten systems were reviewed and were otherwise negative. PMHx/PSHx: See Below SOCIAL HISTORY: See Below. PHYSICAL EXAM: GENERAL: Patient is in no acute distress. HEENT: No acute trauma, normocephalic atraumatic, mucous membranes moist, no nasal congestion, no scleral icterus. NECK: No stridor, no adenopathy, no meningismus, trachea is midline. LUNGS: A few crackles at the right base, no wheezing, no respiratory distress. HEART: Slightly tachycardic, irregular rhythm, no murmurs. ABDOMEN: Soft, nontender, bowel sounds positive, there is a nontender reducible umbilical hernia, no peritonitis. Abdominal distention noted. EXTREMITIES: No cyanosis, moderate bilateral pedal edema with some weeping fluid noted, full range of motion of all the joints without pain or difficulty, no signs for acute trauma. NEUROLOGIC: Oriented x 3, no acute motor or sensory deficits, no focal weakness. SKIN: No rash, no jaundice, no diaphoresis. DIFFERENTIAL DIAGNOSIS: Reactive airway disease, pneumonia, pneumothorax, COPD, CHF, dysrhythmia, A. fib or a flutter, fluid overload, liver or renal failure, urinary retention, infection, cardiac ischemia, pulmonary embolism, bronchitis, musculoskeletal, gastrointestinal, as well as other pathologies. EMERGENCY DEPARTMENT COURSE/PROCEDURES: ECG: Indication was shortness of breath. The ECG shows atrial fibrillation with a rate of 93. A PVC was noted. There were some inverted T waves in the inferior and lateral leads. 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 The QTc was 487. No ST elevation. Continuous Cardiac Monitoring: An order was placed for continuous cardiac monitoring. The monitor shows a rate of 108 with atrial fibrillation. MEDICAL DECISION MAKING: There is no leukocytosis or worrisome anemia. There is a normal platelet count. INR was slightly elevated at 1.3--the patient is under anticoagulated with Coumadin. No kidney failure. There were a few subtle liver enzyme elevations. ECG shows atrial fibrillation, no ischemia. Cardiac enzyme testing x1 is not consistent with acute cardiac injury. Chest x-ray shows cardiomegaly, no pneumonia or CHF. BNP is elevated consistent with fluid overload. The patient appeared to be in a euthyroid state. Urinalysis does not show infection. Bilateral lower extremity ultrasound does not show evidence for DVT. The patient had a Ravi catheter placed, he had a significant amount of urine drain. Nursing staff report over 1000 cc in the Ravi bag. The patient was given IV Lasix, 40 mg. This was given to help with diuresis. The patient is short of breath, he is fluid overloaded, he is retaining urine. He has weeping pedal edema. He does require a hospital stay for diuresis. I spoke to the patient and case management. The on-call hospitalist has been consulted. Past Med/Surg History Medical History Ascites Atrial fibrillation CHF (congestive heart failure) Social History Smoking Status: Current every day smoker Tobacco Type: Cigarettes Second Hand Exposure: Yes; Hx Alcohol Use: Yes Alcohol type: beer Hx Substance Use: No Preferred Language: Kuwaiti Communication Ability: Effective Rn Physician Office Required: No Beliefs That Will Affect Care: None marital status: Current Living Situation: Spouse Feels Safe at Home: Yes Assistive Devices: None Allergies Allergies Allergy/AdvReac Type Severity Reaction Status Date / Time No Known Allergies Allergy Unverified 12/13/20 19:25 Home Meds Home Medications Medication Instructions Recorded Confirmed alprazolam 1 mg PO TID 12/11/19 12/13/20 glipizide 10 mg PO DAILY 12/11/19 12/13/20 lisinopril 5 mg PO DAILY 12/11/19 12/13/20 simvastatin 80 mg PO DAILY 12/11/19 12/13/20 carvedilol 3.125 mg PO BID 12/13/20 12/13/20 furosemide [Lasix] 40 mg PO TID 12/13/20 12/13/20 metformin 500 mg PO DAILY 12/13/20 12/13/20 warfarin 2.5 mg PO DAILY 12/13/20 12/13/20 Results & Data (ED) Vital Signs Vital Signs - 24 hr 12/13/20 15:41 12/13/20 17:40 12/13/20 17:51 Temperature 36.7 C Temperature Source Temporal Artery Scan Pulse Rate 90 Pulse Rate [Apical] 109 H Respiratory Rate 20 18 Respiratory Effort / Characteristics Non-Labored Respiratory Depth Normal Blood Pressure 122/82 Blood Pressure [Right Arm] 116/94 Blood Pressure Mean 95 Blood Pressure Mean [Right Arm] 101 Pulse Oximetry 96 95 Oxygen Delivery Method Room Air Room Air Room Air Sepsis Recent Fever Within 48 Hours No Sepsis New/Unexplained Change in Mental Status No Sepsis Action Taken by Nursing No Action Required 12/13/20 18:00 12/13/20 19:00 12/13/20 19:13 Temperature Temperature Source Pulse Rate 96 H 93 H Pulse Rate [Apical] Respiratory Rate 26 H 26 H Respiratory Effort / Characteristics Respiratory Depth Blood Pressure 125/91 119/87 Blood Pressure [Right Arm] Blood Pressure Mean 102 97 Blood Pressure Mean [Right Arm] Pulse Oximetry 95 Oxygen Delivery Method Room Air Sepsis Recent Fever Within 48 Hours Sepsis New/Unexplained Change in Mental Status Sepsis Action Taken by Nursing 12/13/20 20:17 12/13/20 21:00 Temperature Temperature Source Pulse Rate 105 H 105 H Pulse Rate [Apical] Respiratory Rate 15 22 Respiratory Effort / Characteristics Respiratory Depth Blood Pressure 115/84 123/98 Blood Pressure [Right Arm] Blood Pressure Mean 94 106 Blood Pressure Mean [Right Arm] Pulse Oximetry 97 Oxygen Delivery Method Sepsis Recent Fever Within 48 Hours Sepsis New/Unexplained Change in Mental Status Sepsis Action Taken by Skilled Nursing Medications Current Medication List: was personally reviewed by me Laboratory Data Attestation: I reviewed the patient's lab results. Result diagrams: 12/13/20 17:30 12/13/20 17:30 Lab Results 12/13/20 12/13/20 12/13/20 Range/Units 17:30 17:30 17:51 WBC 6.37 (4.8-10.8) K/uL RBC 4.37 L (4.7-6.1) M/uL Hgb 13.8 L (14.0-18.0) g/dL Hct 41.3 L (42-52) % MCV 94.5 (80-100) fL MCH 31.6 (25-34) pg MCHC 33.4 (32-36) g/dL RDW Std Deviation 49.1 H (36.4-46.3) fL RDW Coeff of Tiffany 14.3 (11.5-14.5) % Plt Count 204 (130-400) K/uL MPV 11.1 H (7.4-10.4) fL Immature Gran % (Auto) 0.3 % Neut % (Auto) 65.2 % Lymph % (Auto) 21.5 % Hubbard % (Auto) 10.8 % Eos % (Auto) 1.9 % Baso % (Auto) 0.3 % Neut # (Auto) 4.15 (1.4-6.5) K/uL Lymph # (Auto) 1.37 (1.2-3.4) K/uL Hubbard # (Auto) 0.69 H (0.11-0.59) K/uL Eos # (Auto) 0.12 (0-0.5) K/uL Baso # (Auto) 0.02 (0-0.2) K/uL Immature Gran # (Auto) 0.02 (0.00-0.02) K/uL PT 13.3 H (9.0-12.0) Seconds INR 1.3 H (0.9-1.1) APTT 26.0 (21.0-31.0) Seconds PTT Ratio 1.0 Sodium 139 (136-145) mmol/L Potassium 3.6 (3.5-5.1) mmol/L Chloride 104 (98-107) mmol/L Carbon Dioxide 31 (21-32) mmol/L Anion Gap 4.0 (3-11) BUN 23 H (7-18) mg/dl Creatinine 1.19 (0.6-1.4) mg/dl Est Cr Clr Drug Dosing 69.8 ml/min Est GFR ( Amer) 71.8 ml/min Est GFR (Non-Af Amer) 62.0 ml/min BUN/Creatinine Ratio 19.5 (10-20) Glucose 106 H (70-99) mg/dl Calcium 9.1 (8.5-10.1) mg/dl Magnesium 2.0 (1.8-2.4) mg/dl Total Bilirubin 1.3 H (0.2-1) mg/dl AST 27 (15-37) U/L ALT 19 (12-78) U/L Alkaline Phosphatase 185 H (45-117) U/L Troponin I < 0.015 (0-0.045) ng/ml NT-Pro-B Natriuret Pep 8334 H (0-900) pg/ml Total Protein 7.2 (6.4-8.2) gm/dl Albumin 3.3 L (3.4-5.0) gm/dl Globulin 3.9 (2.5-4.0) gm/dl Albumin/Globulin Ratio 0.8 L (0.9-2) TSH 1.530 (0.300-4.500) uIu/ml Urine Color Urine Appearance (Clear) Urine pH (4.5-7.5) Ur Specific [place] (1.000-1.030) Urine Protein (Negative) Urine Glucose (UA) (Negative) Urine Ketones (Negative) Urine Blood (Negative) Urine Nitrite (Negative) Urine Bilirubin (Negative) Urine Urobilinogen (Negative) Ur Leukocyte Esterase (Negative) COVID-19 Eval Order 12/13/20 12/13/20 Range/Units 18:00 20:43 WBC (4.8-10.8) K/uL RBC (4.7-6.1) M/uL Hgb (14.0-18.0) g/dL Hct (42-52) % MCV (80-100) fL MCH (25-34) pg MCHC (32-36) g/dL RDW Std Deviation (36.4-46.3) fL RDW Coeff of Tiffany (11.5-14.5) % Plt Count (130-400) K/uL MPV (7.4-10.4) fL Immature Gran % (Auto) % Neut % (Auto) % Lymph % (Auto) % Hubbard % (Auto) % Eos % (Auto) % Baso % (Auto) % Neut # (Auto) (1.4-6.5) K/uL Lymph # (Auto) (1.2-3.4) K/uL Hubbard # (Auto) (0.11-0.59) K/uL Eos # (Auto) (0-0.5) K/uL Baso # (Auto) (0-0.2) K/uL Immature Gran # (Auto) (0.00-0.02) K/uL PT (9.0-12.0) Seconds INR (0.9-1.1) APTT (21.0-31.0) Seconds PTT Ratio Sodium (136-145) mmol/L Potassium (3.5-5.1) mmol/L Chloride (98-107) mmol/L Carbon Dioxide (21-32) mmol/L Anion Gap (3-11) BUN (7-18) mg/dl Creatinine (0.6-1.4) mg/dl Est Cr Clr Drug Dosing ml/min Est GFR ( Amer) ml/min Est GFR (Non-Af Amer) ml/min BUN/Creatinine Ratio (10-20) Glucose (70-99) mg/dl Calcium (8.5-10.1) mg/dl Magnesium (1.8-2.4) mg/dl Total Bilirubin (0.2-1) mg/dl AST (15-37) U/L ALT (12-78) U/L Alkaline Phosphatase (45-117) U/L Troponin I (0-0.045) ng/ml NT-Pro-B Natriuret Pep (0-900) pg/ml Total Protein (6.4-8.2) gm/dl Albumin (3.4-5.0) gm/dl Globulin (2.5-4.0) gm/dl Albumin/Globulin Ratio (0.9-2) TSH (0.300-4.500) uIu/ml Urine Color Yellow Urine Appearance Clear (Clear) Urine pH 5.5 (4.5-7.5) Ur Specific [place] 1.011 (1.000-1.030) Urine Protein Negative (Negative) Urine Glucose (UA) Negative (Negative) Urine Ketones Negative (Negative) Urine Blood Negative (Negative) Urine Nitrite Negative (Negative) Urine Bilirubin Negative (Negative) Urine Urobilinogen Negative (Negative) Ur Leukocyte Esterase Negative (Negative) COVID-19 Eval Order Covid19 at [facility] Administered Medications Discontinued Medications Furosemide (Furosemide 40 Mg/4 Ml Vial) 40 mg IV NOW STA Stop: 12/13/20 17:37 Last Admin: 12/13/20 18:11 Dose: 40 mg Documented by: [id number] Imaging Data Radiologist's Impression: Chest X-Ray 12/13/20 17:36 XR chest 1V portable HISTORY: Shortness of breath. COMPARISON: Chest 12/11/2019. FINDINGS: No pneumothorax. Small right pleural effusion persists. The heart remains enlarged. Bibasilar densities are also unchanged. No evidence for pulmonary edema. IMPRESSION: 1. No change in the small right pleural effusion and right basilar density. This favors atelectasis. 2. Stable cardiomegaly. ACT 112: Negative or not required by law. Electronically signed by: Cosme Overton M.D. 12/13/2020 7:32 PM Venous Doppler Study 12/13/20 18:49 BILATERAL LOWER EXTREMITY VENOUS DOPPLER HISTORY: Bilateral lower extremity swelling COMPARISON STUDY: None. FINDINGS: There is normal compressibility, flow, and augmentation within the bilateral lower extremity deep venous systems. IMPRESSION: No DVT within the right or left lower extremity. ACT 112: Negative or not required by law. Electronically signed by: Cosem Overton M.D. 12/13/2020 7:50 PM Discharge Plan Visit Data Chief Complaint: Swelling/Edema to Extremity Stated Complaint: EXCESS FLUID ED Provider: Teodoro Monsalve Discharge Problem: SOB (shortness of breath), Fluid overload, Pedal edema, Acute urinary retention Patient Disposition: Admitted As Inpatient Condition: Fair Forms Stand Alone Forms: [facility], Virtual Emergency Department, Important Visit Information Prescriptions Prescriptions: No Action alprazolam 1 mg tablet 1 mg PO TID RF: 0 glipizide 10 mg tablet 10 mg PO DAILY RF: 0 simvastatin 80 mg tablet 80 mg PO DAILY RF: 0 lisinopril 5 mg tablet 5 mg PO DAILY RF: 0 metformin 500 mg tablet 500 mg PO DAILY RF: 0 furosemide [Lasix] 40 mg tablet 40 mg PO TID RF: 0 warfarin 2.5 mg tablet 2.5 mg PO DAILY RF: 0 carvedilol 3.125 mg tablet 3.125 mg PO BID RF: 0 Referrals Referrals: Anders Piper [Primary Care Provider] - Discharge Problem: Fluid overload Qualifiers: Hypervolemia type: unspecified Qualified Code(s): E87.70 - Fluid overload, unspecified
[2020-12-13 18:14] LABS: Appearance Urine Clear (Clear); Bilirubin Urine Negative (Negative); Blood Urine Negative (Negative); Color Urine Yellow; Glucose Urine UA Negative (Negative); Ketones Urine Negative (Negative); Leukocyte Esterase Urine Negative (Negative); Nitrite Urine Negative (Negative); Protein Urine Negative (Negative); Specific Gravity Urine 1.011 (1.000-1.030); Urobilinogen Urine Negative (Negative); pH Urine 5.5 (4.5-7.5)
[2020-12-13 18:21] LABS: INR 1.3 (0.9-1.1); Prothrombin Time 13.3 Seconds (9.0-12.0)
[2020-12-13 18:25] LABS: Alanine Aminotransferase 19 U/L (12-78); Albumin Level 3.3 gm/dl (3.4-5.0); Aspartate Aminotransferase 27 U/L (15-37); BUN Creatinine Ratio 19.5 (10-20); Blood Urea Nitrogen 23 mg/dl (7-18); Calcium 9.1 mg/dl (8.5-10.1); Carbon Dioxide 31 mmol/L (21-32); Chloride 104 mmol/L (98-107); Creatinine Clr Calc Pharmacy 69.8 ml/min; Est GFR (African American) 71.8 ml/min; Glucose 106 mg/dl (70-99); Potassium 3.6 mmol/L (3.5-5.1); Sodium 139 mmol/L (136-145)
[2020-12-13 18:36] LABS: Albumin Globulin Ratio 0.8 (0.9-2); Alkaline Phosphatase 185 U/L (45-117); Bilirubin,Total 1.3 mg/dl (0.2-1); Globulin 3.9 gm/dl (2.5-4.0); NT Pro B Type Natriuretic Pept 8334 pg/ml (0-900); Total Protein 7.2 gm/dl (6.4-8.2); Troponin I < 0.015 ng/ml (0-0.045)
--- NOTE | 2020-12-13 19:33 | XRay Report ---
XR chest 1V portable HISTORY: Shortness of breath. COMPARISON: Chest 12/11/2019. FINDINGS: No pneumothorax. Small right pleural effusion persists. The heart remains enlarged. Bibasil ar densities are also unchanged. No evidence for pulmonary edema. IMPRESSION: 1. No change in the small right pleural effusion and right basilar density. This favors atelectasis. 2. Stable cardiomegaly. ACT 112: Negative or not required by law. Electronically signed by: Cosme Overton M.D. 12/13/2020 7:32 PM
--- NOTE | 2020-12-13 19:52 | Ultrasound Report ---
BILATERAL LOWER EXTREMITY VENOUS DOPPLER HISTORY: Bilateral lower extremity swelling COMPARISON STUDY: None. FINDINGS: There is normal compressibility, flow, and augmentation within the bilateral lower extremit y deep venous systems. IMPRESSION: No DVT within the right or left lower extremity. ACT 112: Negative or not required by law. Electronically signed by: Cosme Overton M.D. 12/13/2020 7:50 PM
[2020-12-13] MEDS ORDERED: WARFARIN SOD 2.5 MG TAB PO STA (22:42)
[2020-12-13] MEDS ORDERED: NITROGLYCERIN SL 0.4 MG/TAB TAB SL PRN (22:42)
[2020-12-13] MEDS ORDERED: LORazepam 1 MG TAB PO PRN (22:42)
[2020-12-13] MEDS ORDERED: THIAMINE HCL 100 MG in SYRINGE 9 ML IV STA (22:42)
[2020-12-13] MEDS ORDERED: POLYETHYLENE (MIRALAX) 17 GM PACK PO PRN (22:42)
[2020-12-13] MEDS ORDERED: LORazepam 0.25 MG/0.5 ML VIAL IV STA (22:42)
[2020-12-13] MEDS ORDERED: ACETAMINOPHEN 325 MG TAB PO PRN (22:42)
[2020-12-13] MEDS ORDERED: GABAPENTIN 1200MG ALCOHOL WITHDRAWAL LOAD PO STA (22:42)
[2020-12-13] MEDS ORDERED: LEVALBUTEROL HCL 1.25 MG/3 ML NEB NEB PRN (23:15)
[2020-12-13] MEDS ORDERED: GLUCOSE 10 TABS/TUBE PO PRN (23:30)
[2020-12-13] MEDS ORDERED: CARBOHYDRATES FOR HYPOGLYCEMIA PO PRN (23:30)
[2020-12-13] MEDS ORDERED: DEXTROSE 50% 50 ML SYRINGE IV PRN (23:30)
[2020-12-13] MEDS ORDERED: GLUCAGON FOR INJ 1 MG VIAL IM PRN (23:30)
[2020-12-13] MEDS ORDERED: GLUCOSE 40% GEL 15 GM TUBE PO PRN (23:30)
[2020-12-13] MEDS: NICOTINE 21 MG/24 HR TDSY TD SCH (23:50)
[2020-12-13] MEDS: carvediloL 3.125 MG TAB PO SCH (23:52)
[2020-12-13] MEDS: THIAMINE HCL 100 MG in SYRINGE 9 ML IV SCH (23:55)
[2020-12-13] MEDS: FOLIC ACID 1 MG in SYRINGE 9.8 ML IV SCH (23:56)
--- NOTE | 2020-12-13 23:57 | Urology Consultation ---
Date of Consultation December 13, 2020 Assessment & Plan (1) Urinary retention: Patient has been admitted by the hospital service and we have been asked to see for urinary retention. We recommend proceeding as follows: Consider checking PSA Patient has had a Ravi catheter placed with 1000 cc obtained most immediately after placement. Recommend continuing Ravi catheter for the present time for bladder rest with trotting of oil to follow in several days. Patient is unable to successfully void at that time additional recommendations were made. History of Present Illness Reason for Consultation: Urinary retention Attending Physician: Scooter Mathews MD History of Present Illness Is a 70-year-old male who presented to the emergency department secondary to 3 weeks of worsening edema of his lower extremities. In addition he notes some shortness of breath. He denies any cough, fevers, shakes, or chills. In ad dition the patient notes some abdominal distention. I question the patient about urinary symptoms. The patient says that he really does not have an urge to urinate despite taking diuretics. He does note however when he does urinate he feels as though his bladder does not empty completely. He also notes decreased force of urinary stream. Patient did note some abdominal distention as well as pressure in his bladder. Because of these symptoms patient had a Ravi catheter placed in the emergency department where he drained in excess of 1000 cc immediately after the Ravi was placed. His subsequent been admitted by the hospitalist for further evaluation we are asked to see him for urinary retention. Patient notes that the above-noted urinary symptoms have been ongoing for several months. The patient says that he thinks this though he had his prostate levels checked approximately 1 year ago but he is unsure of this. He says he has never had any in or other interventions performed because of this. Since admission to the hospital and in the emergency department patient did have labs and imaging which independently reviewed. CBC revealed a white blood cell count was normal. His hemoglobin and hematocrit were 13.8 and 41.3. Patient's platelet count was noted to be normal. Patient's chemistry profile showed his sodium, potassium, and creatinine were all within normal range. He had a slight elevation of his BUN at 23. Urinalysis was not indicative of infection and a Covid test was noted to be negative. Patient also had a chest x-ray that showed a small right pleural effusion. There is no evidence of pneumonia. He had a venous Doppler that showed no evidence of DVT. At the time of my exam the patient was resting comfortably in bed in no distress. He notes that since Ravi catheter placement he has had improved symptomatology. Allergies Allergy/AdvReac Type Severity Reaction Status Date / Time No Known Allergies Allergy Unverified 12/13/20 19:25 Home Medications Medication Instructions Recorded Confirmed Type alprazolam 1 mg PO TID 12/11/19 12/13/20 History glipizide 10 mg PO DAILY 12/11/19 12/13/20 History lisinopril 5 mg PO DAILY 12/11/19 12/13/20 History simvastatin 80 mg PO DAILY 12/11/19 12/13/20 History carvedilol 3.125 mg PO BID 12/13/20 12/13/20 History furosemide [Lasix] 40 mg PO TID 12/13/20 12/13/20 History metformin 500 mg PO DAILY 12/13/20 12/13/20 History warfarin 2.5 mg PO DAILY 12/13/20 12/13/20 History Patient History Medical History Ascites Atrial fibrillation CHF (congestive heart failure) Social History Smoking Status: Current every day smoker Tobacco Type: Cigarettes Cigarettes Per Day: 20; Second Hand Exposure: Yes; Hx Alcohol Use: Yes Alcohol type: beer Hx Substance Use: No Preferred Language: Icelandic Communication Ability: Effective Vice President Research Required: No Beliefs That Will Affect Care: None marital status: Current Living Situation: Spouse Feels Safe at Home: Yes Safety Concerns: Feels Safe At This Time Assistive Devices: Denture - Upper, Denture - Lower and Glasses Review of Systems Constitutional: no fever and no chills Eyes: no diplopia Ear, Nose, Mouth, Throat: no ear pain Respiratory: no cough Cardiovascular: no chest pain Gastrointestinal: no abdominal pain, no nausea and no vomiting Genitourinary: + as per Subjective / HPI and + decreased urination; no dysuria, no urinary frequency and no flank pain Musculoskeletal: no back pain Integumentary: no rash Neurologic: no localized weakness Physical Exam Constitutional: well developed and well nourished; no acute distress Eyes: no conjunctival abnormality ENMT: Ears: no hearing impairment Neck: trachea midline Respiratory: normal respiratory effort; no respiratory distress and no labored breathing Cardiovascular: Rate/Rhythm: + irregularly irregular Gastrointestinal (Abdomen): Percussion/Palpation: abdomen soft; abdomen nontender Ventral hernia noted. Musculoskeletal: No calf tenderness. The patient was noted to have approximately 3+ bilateral pedal edema. He also had some excoriations noted on his shins with some clear weeping fluid. Skin: no rashes, warm and dry Neurologic: moves all extremities Psychiatric: A+Ox3, euthymic affect Results & Data ([facility]) Vital Signs (Past 12 Hours) Vital Signs Temp Pulse Pulse Resp BP BP Pulse Ox 12/13/20 22:46 37.1 C 109 H 21 117/82 97 12/13/20 22:42 37.1 C 109 H 21 117/86 97 12/13/20 22:01 97 H 22 99/80 L 96 12/13/20 21:00 105 H 22 123/98 97 12/13/20 20:17 105 H 15 115/84 12/13/20 19:13 95 12/13/20 19:00 93 H 26 H 119/87 12/13/20 18:00 96 H 26 H 125/91 12/13/20 17:40 109 H 18 116/94 95 12/13/20 15:41 36.7 C 90 20 122/82 96 PG Care Time/CCT Total # of Minutes Spent Total Time Spent with Patient: Total time spent is greater than 50% in coordination of care (as documented) at patient's floor/unit and/or counseling patient: Coding Level of Care Code 21666 Inpt Consult Level 5 Diagnoses Urinary retention R33.9
[2020-12-14] MEDS ORDERED: GABAPENTIN 600 MG TAB PO ONE
[2020-12-14] MEDS: HEPARIN SODIUM/DEXTROSE 25,000 UNITS/500 ML BAG IV SCH ×2 (00:43→21:42)
--- NOTE | 2020-12-14 01:21 | History and Physical Report ---
DATE OF ADMISSION: 12/13/2020. CHIEF COMPLAINT: Lower extremity edema and urinary retention. HISTORY OF PRESENT ILLNESS: This is a 70-year-old male with past medical history significant for chronic systolic CHF, EF of around 20%, refused ICD placement in the past, chronic persistent atrial fibrillation, frequent PVCs, hypertension, history of alcoholism, ongoing tobacco abuse, who presents with lower extremity edema. The patient was here in December of 2019 with similar problem and at that time he was treated for acute systolic and diastolic CHF with his diuretics. He was also found at that time to have urinary retention, required Ravi, and was found to have ascites thought to be from hepatic congestion from CHF and he also has COPD with history of smoking. At discharge, supposed to follow up as outpatient. Also had Agent [place] exposure when in the past he was in the . He recently saw cardiology. He seems to have stopped his Entresto due to cost concerns, back on lisinopril. He is no longer on eliquis and now on Coumadin. Seems to have recently stopped his beta kris and was reinstated by cardiology. Declined cardiac catheterization or ICD. The patient says he is taking Lasix 3 times daily. He states he is taking Coumadin, but it was cut in half because he was developing easy bruises. His INR is 1.3 today. Denies any chest pain. States he is getting short of breath in the morning, could not lie down flat. Since the last 3 weeks, his legs are swelling again and he is having decreased urinary output and somewhat loose stools. Whenever he is bending down, he is saying he is having cough. Denies any fever or chills. No headache, dizziness, or blurred visions. No earache. Has some sinus problems. No sore throat. Appetite is okay. No difficulty swallowing. He is ambulating okay without any support at home. He lives with his . States he is still smoking 1-2 packs a day. He says he stopped drinking alcohol heavily,since last 1 year> Now he drinks 7 beers a week and one shot of vodka a week. Currently in the ER, after placing Ravi, he drained 1 L of urine and is feeling better and received one dose of Lasix. He is hemodynamically stable. Talking in full sentences. His BNP is 8300. SARS-CoV-2 PCR negative. The patient says he has not taken COVID vaccine. ALLERGIES: No known drug allergies. PAST MEDICAL HISTORY: As mentioned above. PAST SURGICAL HISTORY: No past surgical history on file. MEDICATIONS: The patient seems to be on alprazolam 1 mg p.o. t.i.d. p.r.n., Coreg 3.125 mg p.o. b.i.d., Lasix 40 mg p.o. t.i.d., glipizide 10 mg p.o. daily, lisinopril 5 mg p.o. daily, metformin 500 mg p.o. daily, simvastatin 80 mg p.o. daily, Coumadin 2.5 mg p.o. daily. FAMILY HISTORY: No family history on file. SOCIAL HISTORY: . Smokes 1-2 packs a day. Alcohol, currently drinking seven beers a week and one shot of Vodka a week. No drug use as per records. REVIEW OF SYSTEMS: As per HPI. Rest of the review of systems is negative. PHYSICAL EXAMINATION: GENERAL: The patient is of moderate build, not in acute distress. VITAL SIGNS: Temperature 36.7, pulse 105, respiratory rate 22, blood pressure 123/98, oxygen 97% on room air. HEENT: Pupils equal, round and reactive to light. Oral mucosa moist. NECK: No JVD, no neck masses. CARDIOVASCULAR: S1 and S2 heard. Regular rate and rhythm. No murmur, no gallop. RESPIRATORY SYSTEM: Normal AP diameter. No accessory muscle use. Occasional wheezing. Bibasilar crackles heard. ABDOMEN: Soft, bowel sounds present. Ventral hernia seen in the umbilical region. No guarding, no rigidity. CENTRAL NERVOUS SYSTEM: Cranial nerves II-XII grossly intact, nonfocal. EXTREMITIES: Bilateral lower extremity gross edema present. Mild erythema seen. LABORATORY DATA: WBC 6.3, hemoglobin 13.8, hematocrit 41.3, platelets 204. PT 13.3, INR 1.3, APTT 26. Sodium 139, potassium 3.6, chloride 104, bicarbonate 31, BUN 23, creatinine 1.1, serum glucose 106, calcium 9.1, magnesium 2, total bilirubin 1.3, AST 27, ALT 19, alkaline phosphatase 185. Troponin I less than 0.015. BNP 8300. TSH is 1.5. Urinalysis negative. SARS-CoV-2 PCR negative. IMAGING DATA: Venous Doppler, no DVT in the right or left lower extremity. Chest x-ray, no changes. Small right pleural effusion, right basilar density favours atelectasis, stable cardiomegaly. EKG: AFib with PVCs at a rate of 93, no significant change was found. ASSESSMENT AND PLAN: This is a 70-year-old male, who presents with worsening lower extremity edema and found to be in [id number] systolic congestive heart failure. 1. Qlrgu-vl-[id number] systolic congestive heart failure, last ejection fraction was around 20%. Received IV Lasix 40 mg in the ER. Will place on Iv lasix 40 bid. from a.m. Continue his Coreg. Daily weights, I's and O's. Follow the echocardiogram. Consult cardiology in the a.m. Monitor in the tele floor. 2. History of diabetes: Holding metformin and glipizide. Placed on insulin sliding scale. Follow HbA1c levels. Follow the blood sugars. 3. Hyperlipidemia: Continue statin. 4. History of atrial fibrillation: On Coreg. Currently on Coumadin 2.5 mg p.o. daily. He says this has been cut in half because of his easy bruising . Today, his INR is 1.3. He was given 2.5 of Coumadin tonight and placed on IV heparin low dose bridging and follow PT/INR and adjust the Coumadin dosing. 5. Hypertension: Continue his Coreg and lisinopril. Monitor the blood pressure. 6. History of alcoholism: He says he is currently taking only 7 beers a week and one shot of vodka a week. Placed him on gabapentin protocol and Ativan p.r.n. Continue his home alprazolam p.o. t.i.d. p.r.n. 7. History of ongoing tobacco abuse: Nicotine patch. 8. History of possible chronic obstructive pulmonary disease: Will place on nebs p.r.n. 9. Urinary retention: Currently status post Ravi. Consult urology in a.m. for further recommendations. 10. History of lung nodule, 5 mm, left upper lobe, in the last admission. Needs to follow up with a CT chest. 11. History of Agent [place] exposure as per the patient. 12. Disposition: Admit to tele floor. PT, OT prior to discharge. Social service to help with discharge planning. Follow up with cardiology and PCP. Level 1 full code. Job ID: [id number] ALYSIA
[2020-12-14] MEDS: GABAPENTIN 600 MG TAB PO SCH ×3 (05:39→21:33)
[2020-12-14 05:53] LABS: Basophils # (auto) 0.06 K/uL (0-0.2); Basophils % (auto) 0.8 %; Eosinophils % (auto) 1.4 %; Hematocrit (blood only) 41.3 % (42-52); Hemoglobin 13.7 g/dL (14.0-18.0); Immature Granulocytes # (auto) 0.01 K/uL (0.00-0.02); Immature Granulocytes % (auto) 0.1 %; Lymphocytes % (auto) 22.6 %; Mean Corpuscular Hemoglobin 31.4 pg (25-34); Mean Corpuscular Hgb Conc 33.2 g/dL (32-36); Mean Corpuscular Volume 94.5 fL (80-100); Mean Platelet Volume 10.8 fL (7.4-10.4); Monocytes # (auto) 0.77 K/uL (0.11-0.59); Monocytes % (auto) 10.9 %; Neutrophils # (auto) 4.54 K/uL (1.4-6.5); Neutrophils % (auto) 64.2 %; Platelet Count 187 K/uL (130-400); RDW Coefficient of Variation 14.4 % (11.5-14.5); RDW Standard Deviation 49.2 fL (36.4-46.3); Red Blood Count 4.37 M/uL (4.7-6.1); White Blood Count 7.08 K/uL (4.8-10.8)
[2020-12-14 06:02] LABS: INR 1.4 (0.9-1.1); Prothrombin Time 13.7 Seconds (9.0-12.0)
[2020-12-14 06:25] LABS: BUN Creatinine Ratio 20.8 (10-20); Blood Urea Nitrogen 25 mg/dl (7-18); Calcium 9.1 mg/dl (8.5-10.1); Carbon Dioxide 32 mmol/L (21-32); Chloride 105 mmol/L (98-107); Creatinine Clr Calc Pharmacy 64.8 ml/min; Est GFR (African American) 72.5 ml/min; Est GFR (Non-African American) 62.6 ml/min; Glucose 83 mg/dl (70-99); Magnesium 1.9 mg/dl (1.8-2.4); Potassium 3.7 mmol/L (3.5-5.1); Sodium 140 mmol/L (136-145)
[2020-12-14 06:30] LABS: Troponin I < 0.015 ng/ml (0-0.045)
[2020-12-14] MEDS ORDERED: POTASSIUM CHLORIDE 10 MEQ TABCR PO STA (06:38)
[2020-12-14] MEDS ORDERED: MAGNESIUM OXIDE 400 MG TAB PO STA (06:38)
[2020-12-14 06:58] LABS: Estimated Average Glucose 160 mg/dl; Hemoglobin A1C 7.2 % (4.5-5.6)
--- NOTE | 2020-12-14 07:18 | Hospitalist Progress Note ---
Date of Service December 14, 2020 Assessment & Plan (1) CHF (congestive heart failure): This is a 70-year-old male, who presents with worsening lower extremity edema and found to be in [id number] systolic congestive heart failure. 1. [id number]-gd-[id number] systolic congestive heart failure, last ejection fraction was around 20%. Previously declined ICD, now considering it. Received IV Lasix 40 mg in the ER. Will place on Iv lasix 40 bid. Continued home Coreg on admission. Switched to metoprolol succinate per cardiology. Daily weights, I's and O's. Echocardiogram ordered. Cardiology consulted. Cont. to monitor in the tele floor. 2. History of diabetes: Holding metformin and glipizide. Placed on insulin sliding scale. Follow HbA1c levels. Follow the blood sugars. 3. Hyperlipidemia: Continue statin. 4. History of atrial fibrillation: On Coreg. Currently on Coumadin 2.5 mg p.o. daily. He says this has been cut in half because of his easy bruising . O admission INR 1.3 Today, his INR is 1.4 He was given 2.5 of Coumadin on admission and placed on IV heparin low dose bridging and follow PT/INR and adjust the Coumadin dosing. 5. Hypertension: Continue his Coreg and lisinopril. Monitor the blood pressure. 6. History of alcoholism: He says he is currently taking only 7 beers a week and one shot of vodka a week. Placed him on gabapentin protocol and Ativan p.r.n. Continue his home alprazolam p.o. t.i.d. p.r.n. 7. History of ongoing tobacco abuse: Nicotine patch. 8. History of possible chronic obstructive pulmonary disease: Will place on nebs p.r.n. 9. Urinary retention: Currently status post Ravi. Consult urology for further recommendations. PSA ordered 10. History of lung nodule, 5 mm, left upper lobe, in the last admission. Needs to follow up with a CT chest. 11. History of Agent [place] exposure as per the patient. Disposition: Admit to tele floor. PT, OT prior to discharge. Social service to help with discharge planning. Follow up with cardiology and PCP. Admission and Anticipated Discharge Date Admission Date: December 13, 2020 Subjective Patient seen in follow-up of CHF exacerbation, urinary retention Currently he is sitting up in bed, in no acute distress Ravi catheter was placed in the ER, and draining the urine Patient says that he feels better, breathing better denies any chest pain or palpitations On telemetry had V. tach 9 beat this morning, and then several short 2 to 3- second beats, patient asymptomatic during these episodes Patient was previously seen by Dr. Vazquez and Dr. Bang, from [facility] cardiology, he says that he recently established care with cardiology in [place] Review of Systems Review of Systems: All systems reviewed & are unremarkable except as noted in HPI & below Constitutional: no fever and no chills Respiratory: + dyspnea (improved) Cardiovascular: no chest pain and no palpitations Gastrointestinal: no abdominal pain, no nausea and no vomiting Genitourinary: + decreased urination Physical Exam Physical Exam: GENERAL: The patient is of moderate build, not in acute distress. HEENT: NC/AT, EOMI, Pupils equal, round and reactive to light. Oral mucosa moist. NECK: No JVD, no neck masses. CARDIOVASCULAR: S1 and S2 heard. Regular rate and rhythm. + syst. murmur RESPIRATORY: Normal AP diameter. No accessory muscle use. Occasional wheezing. + Bibasilar crackles ABDOMEN: Soft, bowel sounds present. Ventral hernia seen in the umbilical region. No guarding, no rigidity. NEURO: Alert and oriented x3 and answering questions appropriately. No facial asymmetry, speech fluent, moves extremities EXTREMITIES: 2+ Bilateral lower extremity gross edema . Mild erythema seen. Results & Data Results & Data ([facility]) Vital Signs (Past 12 Hours) Vital Signs Temp Pulse Pulse Resp BP BP BP 12/14/20 05:46 78 17 123/84 12/14/20 03:59 36.7 C 96 H 24 98/63 L 12/13/20 22:50 110 H 12/13/20 22:46 37.1 C 109 H 21 117/82 12/13/20 22:42 37.1 C 109 H 21 117/86 12/13/20 22:01 97 H 22 99/80 L 12/13/20 21:00 105 H 22 123/98 12/13/20 20:17 105 H 15 115/84 Pulse Ox 12/14/20 05:46 92 12/14/20 03:59 92 12/13/20 22:50 12/13/20 22:46 97 12/13/20 22:42 97 12/13/20 22:01 96 12/13/20 21:00 97 12/13/20 20:17 Laboratory Results 12/14/20 12/14/20 12/14/20 Range/Units 07:02 05:40 05:40 WBC (4.8-10.8) K/uL RBC (4.7-6.1) M/uL Hgb (14.0-18.0) g/dL Hct (42-52) % MCV (80-100) fL MCH (25-34) pg MCHC (32-36) g/dL RDW Std Deviation (36.4-46.3) fL RDW Coeff of Tiffany (11.5-14.5) % Plt Count (130-400) K/uL MPV (7.4-10.4) fL Immature Gran % (Auto) % Neut % (Auto) % Lymph % (Auto) % [place] % (Auto) % Eos % (Auto) % Baso % (Auto) % Neut # (Auto) (1.4-6.5) K/uL Lymph # (Auto) (1.2-3.4) K/uL [place] # (Auto) (0.11-0.59) K/uL Eos # (Auto) (0-0.5) K/uL Baso # (Auto) (0-0.2) K/uL Immature Gran # (Auto) (0.00-0.02) K/uL PT 13.7 H (9.0-12.0) Seconds INR 1.4 H (0.9-1.1) APTT Pending (21.0-31.0) Seconds PTT Ratio Pending Sodium (136-145) mmol/L Potassium (3.5-5.1) mmol/L Chloride (98-107) mmol/L Carbon Dioxide (21-32) mmol/L Anion Gap (3-11) BUN (7-18) mg/dl Creatinine (0.6-1.4) mg/dl Est Cr Clr Drug Dosing ml/min Est GFR ( Amer) ml/min Est GFR (Non-Af Amer) ml/min BUN/Creatinine Ratio (10-20) Glucose (70-99) mg/dl Estimat Average Glucose 160 mg/dl Hemoglobin A1c 7.2 H (4.5-5.6) % Calcium (8.5-10.1) mg/dl Magnesium (1.8-2.4) mg/dl Total Bilirubin (0.2-1) mg/dl AST (15-37) U/L ALT (12-78) U/L Alkaline Phosphatase (45-117) U/L Troponin I (0-0.045) ng/ml NT-Pro-B Natriuret Pep (0-900) pg/ml Total Protein (6.4-8.2) gm/dl Albumin (3.4-5.0) gm/dl Globulin (2.5-4.0) gm/dl Albumin/Globulin Ratio (0.9-2) TSH (0.300-4.500) uIu/ml Urine Color Urine Appearance (Clear) Urine pH (4.5-7.5) Ur Specific [place] (1.000-1.030) Urine Protein (Negative) Urine Glucose (UA) (Negative) Urine Ketones (Negative) Urine Blood (Negative) Urine Nitrite (Negative) Urine Bilirubin (Negative) Urine Urobilinogen (Negative) Ur Leukocyte Esterase (Negative) COVID-19 Eval Order SARS-CoV-2 (PCR) (Negative) 12/14/20 12/14/20 12/13/20 Range/Units 05:40 05:40 20:43 WBC 7.08 (4.8-10.8) K/uL RBC 4.37 L (4.7-6.1) M/uL Hgb 13.7 L (14.0-18.0) g/dL Hct 41.3 L (42-52) % MCV 94.5 (80-100) fL MCH 31.4 (25-34) pg MCHC 33.2 (32-36) g/dL RDW Std Deviation 49.2 H (36.4-46.3) fL RDW Coeff of Tiffany 14.4 (11.5-14.5) % Plt Count 187 (130-400) K/uL MPV 10.8 H (7.4-10.4) fL Immature Gran % (Auto) 0.1 % Neut % (Auto) 64.2 % Lymph % (Auto) 22.6 % [place] % (Auto) 10.9 % Eos % (Auto) 1.4 % Baso % (Auto) 0.8 % Neut # (Auto) 4.54 (1.4-6.5) K/uL Lymph # (Auto) 1.60 (1.2-3.4) K/uL [place] # (Auto) 0.77 H (0.11-0.59) K/uL Eos # (Auto) 0.10 (0-0.5) K/uL Baso # (Auto) 0.06 (0-0.2) K/uL Immature Gran # (Auto) 0.01 (0.00-0.02) K/uL PT (9.0-12.0) Seconds INR (0.9-1.1) APTT (21.0-31.0) Seconds PTT Ratio Sodium 140 (136-145) mmol/L Potassium 3.7 (3.5-5.1) mmol/L Chloride 105 (98-107) mmol/L Carbon Dioxide 32 (21-32) mmol/L Anion Gap 3.0 (3-11) BUN 25 H (7-18) mg/dl Creatinine 1.18 (0.6-1.4) mg/dl Est Cr Clr Drug Dosing 64.8 ml/min Est GFR ( Amer) 72.5 ml/min Est GFR (Non-Af Amer) 62.6 ml/min BUN/Creatinine Ratio 20.8 H (10-20) Glucose 83 (70-99) mg/dl Estimat Average Glucose mg/dl Hemoglobin A1c (4.5-5.6) % Calcium 9.1 (8.5-10.1) mg/dl Magnesium 1.9 (1.8-2.4) mg/dl Total Bilirubin (0.2-1) mg/dl AST (15-37) U/L ALT (12-78) U/L Alkaline Phosphatase (45-117) U/L Troponin I < 0.015 (0-0.045) ng/ml NT-Pro-B Natriuret Pep (0-900) pg/ml Total Protein (6.4-8.2) gm/dl Albumin (3.4-5.0) gm/dl Globulin (2.5-4.0) gm/dl Albumin/Globulin Ratio (0.9-2) TSH (0.300-4.500) uIu/ml Urine Color Urine Appearance (Clear) Urine pH (4.5-7.5) Ur Specific [place] (1.000-1.030) Urine Protein (Negative) Urine Glucose (UA) (Negative) Urine Ketones (Negative) Urine Blood (Negative) Urine Nitrite (Negative) Urine Bilirubin (Negative) Urine Urobilinogen (Negative) Ur Leukocyte Esterase (Negative) COVID-19 Eval Order SARS-CoV-2 (PCR) NEGATIVE (Negative) 12/13/20 12/13/20 12/13/20 Range/Units 20:43 18:00 17:51 WBC (4.8-10.8) K/uL RBC (4.7-6.1) M/uL Hgb (14.0-18.0) g/dL Hct (42-52) % MCV (80-100) fL MCH (25-34) pg MCHC (32-36) g/dL RDW Std Deviation (36.4-46.3) fL RDW Coeff of Tiffany (11.5-14.5) % Plt Count (130-400) K/uL MPV (7.4-10.4) fL Immature Gran % (Auto) % Neut % (Auto) % Lymph % (Auto) % [place] % (Auto) % Eos % (Auto) % Baso % (Auto) % Neut # (Auto) (1.4-6.5) K/uL Lymph # (Auto) (1.2-3.4) K/uL [place] # (Auto) (0.11-0.59) K/uL Eos # (Auto) (0-0.5) K/uL Baso # (Auto) (0-0.2) K/uL Immature Gran # (Auto) (0.00-0.02) K/uL PT 13.3 H (9.0-12.0) Seconds INR 1.3 H (0.9-1.1) APTT 26.0 (21.0-31.0) Seconds PTT Ratio 1.0 Sodium (136-145) mmol/L Potassium (3.5-5.1) mmol/L Chloride (98-107) mmol/L Carbon Dioxide (21-32) mmol/L Anion Gap (3-11) BUN (7-18) mg/dl Creatinine (0.6-1.4) mg/dl Est Cr Clr Drug Dosing ml/min Est GFR ( Amer) ml/min Est GFR (Non-Af Amer) ml/min BUN/Creatinine Ratio (10-20) Glucose (70-99) mg/dl Estimat Average Glucose mg/dl Hemoglobin A1c (4.5-5.6) % Calcium (8.5-10.1) mg/dl Magnesium (1.8-2.4) mg/dl Total Bilirubin (0.2-1) mg/dl AST (15-37) U/L ALT (12-78) U/L Alkaline Phosphatase (45-117) U/L Troponin I (0-0.045) ng/ml NT-Pro-B Natriuret Pep (0-900) pg/ml Total Protein (6.4-8.2) gm/dl Albumin (3.4-5.0) gm/dl Globulin (2.5-4.0) gm/dl Albumin/Globulin Ratio (0.9-2) TSH (0.300-4.500) uIu/ml Urine Color Yellow Urine Appearance Clear (Clear) Urine pH 5.5 (4.5-7.5) Ur Specific [place] 1.011 (1.000-1.030) Urine Protein Negative (Negative) Urine Glucose (UA) Negative (Negative) Urine Ketones Negative (Negative) Urine Blood Negative (Negative) Urine Nitrite Negative (Negative) Urine Bilirubin Negative (Negative) Urine Urobilinogen Negative (Negative) Ur Leukocyte Esterase Negative (Negative) COVID-19 Eval Order Covid19 at [facility] SARS-CoV-2 (PCR) (Negative) 12/13/20 12/13/20 Range/Units 17:30 17:30 WBC 6.37 (4.8-10.8) K/uL RBC 4.37 L (4.7-6.1) M/uL Hgb 13.8 L (14.0-18.0) g/dL Hct 41.3 L (42-52) % MCV 94.5 (80-100) fL MCH 31.6 (25-34) pg MCHC 33.4 (32-36) g/dL RDW Std Deviation 49.1 H (36.4-46.3) fL RDW Coeff of Tiffany 14.3 (11.5-14.5) % Plt Count 204 (130-400) K/uL MPV 11.1 H (7.4-10.4) fL Immature Gran % (Auto) 0.3 % Neut % (Auto) 65.2 % Lymph % (Auto) 21.5 % [place] % (Auto) 10.8 % Eos % (Auto) 1.9 % Baso % (Auto) 0.3 % Neut # (Auto) 4.15 (1.4-6.5) K/uL Lymph # (Auto) 1.37 (1.2-3.4) K/uL [place] # (Auto) 0.69 H (0.11-0.59) K/uL Eos # (Auto) 0.12 (0-0.5) K/uL Baso # (Auto) 0.02 (0-0.2) K/uL Immature Gran # (Auto) 0.02 (0.00-0.02) K/uL PT (9.0-12.0) Seconds INR (0.9-1.1) APTT (21.0-31.0) Seconds PTT Ratio Sodium 139 (136-145) mmol/L Potassium 3.6 (3.5-5.1) mmol/L Chloride 104 (98-107) mmol/L Carbon Dioxide 31 (21-32) mmol/L Anion Gap 4.0 (3-11) BUN 23 H (7-18) mg/dl Creatinine 1.19 (0.6-1.4) mg/dl Est Cr Clr Drug Dosing 69.8 ml/min Est GFR ( Amer) 71.8 ml/min Est GFR (Non-Af Amer) 62.0 ml/min BUN/Creatinine Ratio 19.5 (10-20) Glucose 106 H (70-99) mg/dl Estimat Average Glucose mg/dl Hemoglobin A1c (4.5-5.6) % Calcium 9.1 (8.5-10.1) mg/dl Magnesium 2.0 (1.8-2.4) mg/dl Total Bilirubin 1.3 H (0.2-1) mg/dl AST 27 (15-37) U/L ALT 19 (12-78) U/L Alkaline Phosphatase 185 H (45-117) U/L Troponin I < 0.015 (0-0.045) ng/ml NT-Pro-B Natriuret Pep 8334 H (0-900) pg/ml Total Protein 7.2 (6.4-8.2) gm/dl Albumin 3.3 L (3.4-5.0) gm/dl Globulin 3.9 (2.5-4.0) gm/dl Albumin/Globulin Ratio 0.8 L (0.9-2) TSH 1.530 (0.300-4.500) uIu/ml Urine Color Urine Appearance (Clear) Urine pH (4.5-7.5) Ur Specific [place] (1.000-1.030) Urine Protein (Negative) Urine Glucose (UA) (Negative) Urine Ketones (Negative) Urine Blood (Negative) Urine Nitrite (Negative) Urine Bilirubin (Negative) Urine Urobilinogen (Negative) Ur Leukocyte Esterase (Negative) COVID-19 Eval Order SARS-CoV-2 (PCR) (Negative) Medications Administered Current Inpatient Medications Acetaminophen (Acetaminophen 325 Mg Tab) 650 mg PO Q4H PRN PRN Reason: Pain or Fever Stop: 01/12/21 22:41 Alprazolam (Alprazolam 0.5 Mg Tablet) 1 mg PO TID PRN PRN Reason: Anxiety Stop: 01/13/21 06:39 Carvedilol (Carvedilol 3.125 Mg Tab) 3.125 mg PO BID KOBE Stop: 01/12/21 22:41 Last Admin: 12/13/20 23:52 Dose: 3.125 mg Documented by: Dextrose (Dextrose 50% 50 Ml Syringe) 25 - 50 ml IV UD PRN; Protocol PRN Reason: Hypoglycemia Protocol Stop: 01/12/21 23:29 Gabapentin (Gabapentin 600 Mg Tab) 600 mg PO Q6H KOBE Stop: 12/14/20 12:01 Last Admin: 12/14/20 05:39 Dose: 600 mg Documented by: Gabapentin (Gabapentin 600 Mg Tab) 600 mg PO Q8H KOBE Stop: 12/15/20 14:01 Gabapentin (Gabapentin 600 Mg Tab) 600 mg PO Q12H KOBE Stop: 12/16/20 12:01 Gabapentin (Gabapentin 600 Mg Tab) 600 mg PO Q24H KOBE Stop: 12/17/20 12:01 Glucagon (Glucagon For Inj 1 Mg Vial) 1 mg IM UD PRN; Protocol PRN Reason: Hypoglycemia Protocol Stop: 01/12/21 23:29 Glucose (Glucose 40% Gel 15 Gm Tube) 15 - 30 gm PO UD PRN; Protocol PRN Reason: Hypoglycemia Protocol Stop: 01/12/21 23:29 Glucose (Glucose 10 Tabs/Tube) 4 - 8 tabs PO UD PRN; Protocol PRN Reason: Hypoglycemia Protocol Stop: 01/12/21 23:29 Thiamine HCl 100 mg/ Syringe 10 mls @ 2 mls/min IV QAM [facility] Stop: 01/12/21 22:41 Last Admin: 12/13/20 23:55 Dose: 2 mls/min Documented by: Folic Acid 1 mg/ Syringe 10 mls @ 5 mls/min IV QAM [facility] Stop: 01/12/21 22:41 Last Admin: 12/13/20 23:56 Dose: 5 mls/min Documented by: Heparin Sodium/Dextrose (Heparin Sodium/Dextrose) 25,000 units in 500 mls @ 20 mls/hr IV .Q24H KOBE; Protocol Stop: 01/12/21 22:41 Last Titration: 12/14/20 07:15 Dose: 1,000 units/hr, 20 mls/hr Documented by: Furosemide 40 mg/ Syringe 4 mls @ 4 mls/min IV [id number] [facility] Stop: 01/13/21 08:59 Insulin Aspart (Insulin Aspart 100 Units/Ml 3 Ml Pen) 0 units SC ACHS [facility] Stop: 01/13/21 07:29 Levalbuterol HCl (Levalbuterol Hcl 1.25 Mg/3 Ml Neb) 1.25 mg NEB Q4H PRN PRN Reason: Shortness Of Breath Or Wheezing Stop: 01/12/21 23:14 Lisinopril (Lisinopril 5 Mg Tab) 5 mg PO DAILY [facility] Stop: 01/13/21 08:59 Lorazepam (Lorazepam 1 Mg Tab) 1 - 3 mg PO UD PRN; Protocol PRN Reason: EtoH Withdrawal AWSS 6-10+ Stop: 01/12/21 22:41 Miscellaneous (Remove Nicoderm Patch) 1 ea N/A DAILY@0859 [facility] Stop: 01/13/21 08:58 Miscellaneous (Carbohydrates For Hypoglycemia ) 15 - 30 gm PO UD PRN PRN Reason: Hypoglycemia Treatment Stop: 01/12/21 23:29 Multivitamins/Minerals (Cerovite Adv Formula Tab) 1 tab PO QAM [facility] Stop: 01/13/21 08:59 Nicotine (Nicotine 21 Mg/24 Hr Tdsy) 21 mg TD DAILY KOBE Stop: 01/12/21 22:41 Last Admin: 12/13/20 23:50 Dose: 21 mg Documented by: Nitroglycerin (Nitroglycerin Sl 0.4 Mg/Tab Tab) 0.4 mg SL UD PRN PRN Reason: Chest Pain Stop: 01/12/21 22:41 Polyethylene Glycol (Polyethylene (Miralax) 17 Gm Pack) 17 gm PO DAILY PRN PRN Reason: Constipation Stop: 01/12/21 22:41 Simvastatin (Simvastatin 80 Mg Tab) 80 mg PO DAILY KOBE Stop: 01/13/21 08:59 Warfarin Sodium (Warfarin Sod 2.5 Mg Tab) 2.5 mg PO DAILY@1600 [facility] Stop: 01/13/21 15:59 (1) CHF (congestive heart failure) Heart failure chronicity: acute Heart failure type: unspecified Qualified Code(s): I50.9 - Heart failure, unspecified
[2020-12-14] MEDS: Heparin IV Adult Wt-Based Low-Dose *NO* Bolus Protocol IV SCH (07:20)
[2020-12-14 07:23] LABS: Partial Thromboplastin Ratio 1.5; Partial Thromboplastin Time 40.7 Seconds (21.0-31.0)
[2020-12-14] MEDS: SIMVASTATIN 80 MG TAB PO SCH (08:34)
[2020-12-14] MEDS: THIAMINE HCL 100 MG in SYRINGE 9 ML IV SCH (08:34)
[2020-12-14] MEDS: lisinopril 5 MG TAB PO SCH (08:34)
[2020-12-14] MEDS: CEROVITE ADV FORMULA TAB PO SCH (08:34)
[2020-12-14] MEDS: carvediloL 3.125 MG TAB PO SCH (08:34)
[2020-12-14] MEDS: FOLIC ACID 1 MG in SYRINGE 9.8 ML IV SCH (08:35)
[2020-12-14] MEDS: FUROSEMIDE 40 MG in SYRINGE 0 ML IV SCH ×2 (08:36→16:51)
[2020-12-14] MEDS: INSULIN ASPART 100 UNITS/ML 3 ML PEN SC SCH ×4 (08:37→20:09)
[2020-12-14] MEDS: NICOTINE 21 MG/24 HR TDSY TD SCH (08:37)
[2020-12-14] MEDS ORDERED: FUROSEMIDE 40 MG/4 ML VIAL IV SCH (09:00)
--- NOTE | 2020-12-14 11:30 | Cardiology Consultation ---
Date of Consultation December 14, 2020 Assessment & Plan (1) Atrial fibrillation: Rate controlled. Asymptomatic. Anticoagulated on Coumadin, subtherapeutic currently on heparin drip. -Continue warfarin, INR goal between 23, will require IV heparin until INR is therapeutic. (2) CHF (congestive heart failure): (3) Acute on chronic heart failure with reduced ejection fraction and diastolic dysfunction: The patient is deconditioned and will need physical therapy. Consideration should be given for rehab hospital. I will order physical therapy. He will also need a two-step walk study to see if he qualifies for home oxygen. I have increased his lisinopril to 10 mg daily and started spironolactone. I would continue his current dose of p.o. Lasix but at some point we may consider reducing it to once daily. His INR remains subtherapeutic. He has had no warfarin adjustment since it was started this admission. I have increased his warfarin to 10 mg daily for the next few days until his INR becomes therapeutic and then it can be reduced if necessary. I will stop his heparin which should enhance his ability to ambulate. I have also asked that they switch his Ravi to a leg bag. (4) COPD (chronic obstructive pulmonary disease) with emphysema: Believe the patient may be discharged to outpatient follow-up. I will arrange follow-up through our clinic in [place]. He will also need a referr al to the [facility] for Coumadin. I reduce the dose of Coumadin to 7.5 mg daily starting today. I believe his Lasix dose can be reduced to once daily. His other medications will remain the same. He will need early follow-up with us which I will arrange for heart failure. He will need an ICD in the future however, he currently has an indwelling Ravi catheter that will need to come out as it will be a source of infection if we put a device in at this moment. The Ravi catheter is scheduled to be in for at least another week. I will discussed the ICD implant with him at his next follow-up which can then be arranged as an outpatient and of course it is important that he remains compliant with follow-up and medications. History of Present Illness Attending Physician: Scooter Mathews MD History of Present Illness See Olga Carmen's note, cosigned Past medical history as per most receent cardiology note: 70 year old year old male with chronic systolic heart failure, presumed ischemic cardiomyopathy given abnormal EKG with findings of age undetermined septal in farction, repolarization abnormalities suggestive of ischemia, and cardiac risk factors of previous dyslipidemia, age, cigarette smoking. Coexistent component of alcohol related cardiomyopathy also a possibility. Persistent atrial fibrillation noted, rapid ventricular response today. Moderate mitral regurgitation secondary mitral regurgitation related to his underlying cardiomyopathy Allergies Allergy/AdvReac Type Severity Reaction Status Date / Time No Known Allergies Allergy Unverified 12/13/20 19:25 Home Medications Medication Instructions Recorded Confirmed Type alprazolam 1 mg tablet 1 mg PO TID PRN 12/11/19 12/13/20 History glipizide 10 mg tablet 10 mg PO DAILY 12/11/19 12/13/20 History simvastatin 80 mg tablet 80 mg PO DAILY 12/11/19 12/13/20 History metformin 500 mg tablet 500 mg PO DAILY 12/13/20 12/13/20 History furosemide 40 mg tablet (Lasix) 40 mg PO QAM #30 tab 12/19/20 12/13/20 Rx lisinopril 10 mg tablet 10 mg PO DAILY #30 tab 12/19/20 Rx metoprolol succinate 25 mg 25 mg PO QAM #30 tab 12/19/20 Rx tablet,extended release 24 hr nicotine 21 mg/24 hr daily 21 mg TRANSDERMAL DAILY #14 ea 12/19/20 Rx transdermal patch (Nicoderm CQ) spironolactone 25 mg tablet 12.5 mg PO DAILY #30 tab 12/19/20 Rx tamsulosin 0.4 mg capsule 0.4 mg PO HS #30 cap 12/19/20 Rx warfarin 7.5 mg tablet (Jantoven) 7.5 mg PO DAILY@1600 #20 tab 12/19/20 Rx finasteride 5 mg tablet 5 mg PO DAILY #90 tab 12/29/20 12/29/20 Rx Patient History Medical History Ascites Atrial fibrillation CHF (congestive heart failure) Social History Smoking Status: Current every day smoker Tobacco Type: Cigarettes Cigarettes Per Day: 20; Second Hand Exposure: Yes; Hx Alcohol Use: Yes Alcohol type: beer Hx Substance Use: No Preferred Language: [place] Communication Ability: Effective Cyber Security Consultant Required: No Beliefs That Will Affect Care: None marital status: Current Living Situation: Spouse Feels Safe at Home: Yes Assistive Devices: None Review of Systems Review of Systems: All systems reviewed & are unremarkable except as noted in HPI & below Physical Exam Physical Exam: General: Awake, alert and oriented x 3. No acute distress. HEENT: Normocephalic, atraumatic. Pupils equal, round and reactive to light and accommodation. Extraocular muscles are intact. Anicteric sclera. Moist mucous membranes. Neck: No JVD. No bruit. Cardiovascular: irregularly irregular, unable to appreciate murmur, rub or gallop. Pulmonary: Clear to auscultation bilaterally. No rales, rhonchi, or wheezing. Abdomen: Bowel sounds x 4, soft. No rebound, guarding or tenderness. No organomegaly. Extremities: No clubbing, cyanosis. +2 bilateral lower extremity pitting edema. +2 pedal pulses bilaterally. Skin: Warm and dry. Chronic venous stasis changes of the lower extremities Results & Data ([facility]) Vital Signs (Past 12 Hours) Vital Signs Temp Pulse Pulse Resp BP Pulse Ox 12/14/20 07:56 36.8 C 79 18 129/68 96 12/14/20 07:18 93 H 12/14/20 05:46 78 17 123/84 92 12/14/20 03:59 36.7 C 96 H 24 98/63 L 92 Diagnostic Findings Summary of transthoracic echocardiogram performed 01/18/2020: The qualitative LV ejection fraction is 25-29% (severely reduced). The left ventricular cavity size is severely enlarged The left atrium is moderately enlarged (42-48 ml/m^2). Moderate mitral regurgitation is present Mild tricuspid regurgitation is present. (1) Atrial fibrillation Atrial fibrillation type: longstanding persistent Qualified Code(s): I48.11 - Longstanding persistent atrial fibrillation (2) CHF (congestive heart failure) Heart failure chronicity: acute Heart failure type: unspecified Qualified Code(s): I50.9 - Heart failure, unspecified
--- NOTE | 2020-12-14 12:19 | Urology Progress Note ---
Date of Service December 14, 2020 Assessment & Plan (1) Urinary retention: 70 yo M admitted for shortness of breath, fluid overload, and acute urinary retention. - Acute urinary retention likely multifactorial - Afebrile, lab work reviewed - creatinine within normal limits - Ravi catheter intact, patent and draining yellow urine - Maintain Ravi 7-14 days for bladder decompression and max drainage - Recommend starting Tamsulosin, use and side effects reviewed, he is agreeable - Recommend bowel regimen as needed to normalize bowels - PSA reviewed - acceptable for age, will obtain prior PSA records if available - Will arrange follow-up with our service outpatient for cystoscopy and voiding trial Thank you for allowing us to participate in the acute care of Mr. Nguyen. Please reconsult us with additional questions, concerns or changes in patient status. Admission and Anticipated Discharge Date Admission Date: December 13, 2020 Subjective Patient seen and examined at bedside. He is awake, alert, and sitting up at the side of the bed eating lunch. No acute issues overnight. Denies pain at present. No suprapubic, flank or abdominal pain. Tolerating Ravi catheter - intact, patent and draining yellow urine. No dysuria or hematuria. No nausea or vomiting. Last BM 3 days ago per his report. Reports his lower extremity swelling and breathing have improved since admission. No fever or chills. Reports he was having weak stream and difficulty voiding for the past 3 weeks prior to arrival. Prior to that he felt he was voiding with strong stream and emptying bladder well. Notes he was having some bowel issues during this time, including constipation. Hx of prior urinary retention. Family hx of prostate cancer - maternal grandfather. Chart review: UA negative on admission, PSA 2.810, Creatinine 1.18. No additional concerns today. Review of Systems Constitutional: as per Subjective / HPI Gastrointestinal: as per Subjective / HPI Genitourinary: + as per Subjective / HPI Physical Exam Constitutional: well developed and well nourished; no acute distress and not ill appearing Respiratory: normal respiratory effort and able to speak in complete sentences; no respiratory distress and no labored breathing Cardiovascular: Extremities: + edema (bilateral lower extremity edema) Gastrointestinal (Abdomen): Inspection/Auscultation: abdomen normal to inspection; abdomen not distended Percussion/Palpation: abdomen soft; abdomen nontender and no guarding Musculoskeletal: Head/Neck/Chest: normocephalic and head atraumatic Skin: multiple scattered scattered abrasions on bilateral lower extremities Neurologic: moves all extremities and awake Psychiatric: Orientation: alert and oriented x 3 Genitourinary: no CVA tenderness Ravi intact, patent and draining clear yellow urine Results & Data ([facility]) Vital Signs (Past 12 Hours) Vital Signs Temp Pulse Pulse Resp BP Pulse Ox 12/14/20 11:38 36.9 C 86 18 131/63 95 12/14/20 07:56 36.8 C 79 18 129/68 96 12/14/20 07:18 93 H 12/14/20 05:46 78 17 123/84 92 12/14/20 03:59 36.7 C 96 H 24 98/63 L 92 PG Care Time/CCT Total # of Minutes Spent Total Time Spent with Patient: Total time spent is greater than 50% in coordination of care (as documented) at patient's floor/unit and/or counseling patient: Coding Level of Care Code 52367 Subseq Hosp Care Lvl 2 Diagnoses Urinary retention R33.9
--- NOTE | 2020-12-14 12:39 | Cardiology Consultation ---
Date of Consultation December 14, 2020 Assessment & Plan (1) Acute on chronic heart failure with reduced ejection fraction and diastolic dysfunction: Hypervolemic on exam. Responding well to IV furosemide 40 mg twice daily, will continue IV diuresis at this time. Requiring electrolyte replacement. Kidney function remaining stable. -Continue IV Lasix 40 mg twice daily -Repeat BMP now and daily-patient will likely require daily p.o. potassium supplementation, recommend replacing appropriately -Continue daily weights, 2 g sodium restriction and a 2L fluid restriction -Repeat echo to assess LV function, continue to titrate goal-directed medical therapies to max tolerated dosages. Patient is now considering ICD placement given episodes of Vtach on tele. Discontinue Coreg 3.125 mg twice daily and start metoprolol succinate 25 mg daily Will Reassess response tomorrow, will likely increase lisinopril at that time. (2) Atrial fibrillation: Rate controlled. Asymptomatic. Anticoagulated on Coumadin, subtherapeutic currently on heparin drip. -Continue warfarin, INR goal between 23, will require IV heparin until INR is therapeutic. (3) Hypertension: Controlled. Plan as stated above. Supervising Physician Co-Signing Physician Notes Patient seen and examined with ANNABELLA Sung. Agree with findings and assessment as above. History of Present Illness Reason for Consultation: CHF Requesting Physician: Linda Grant Attending Physician: Scooter Mathews MD History of Present Illness 70-year-old male admitted to [facility] for acute on chronic systolic CHF shortness of breath, volume overload and acute urinary retention. Last EF was around 20%, has refused ICD in the past. Received IV Lasix 40 mg in the ER and was placed on 40 mg IV Lasix twice daily. Coreg was continued. Was on Entresto in the past however had to discontinue for cost reasons and patient was placed on lisinopril. Patient has a history of atrial fibrillation and is maintained on Coreg and anticoagulated with Coumadin. INR on admission was 1.3, today 1.4. Patient was placed on a heparin drip. Patient is a current alcohol user with a history of alcoholism. Patient states he is currently only drinking 7 beers a week and 1 shot of vodka a week. Patient is on gabapentin protocol and Ativan as needed. Patient was experiencing urinary retention and a Ravi catheter was placed, urology is consulted-Enulose and started. EKG today shows atrial fibrillation with frequent PVCs, QT was prolonged at 510 ms. BMP stable with a creatinine of 1.18. Potassium 3.7. BNP elevated at 8000. Earlier this morning patient was supplemented with 30 mEq of potassium and 400 mg of mag. Upon entrance into the room patient was resting comfortably asleep in bed. Patient's head was slightly elevated with the addition of 2 pillows. Patient appeared in no immediate distress and was talking without breathlessness. St ates that he is feeling generally well and much improved since initial presentation. Notes that the swelling in his legs has dramatically improved and are no longer weeping. Does continue to get dyspneic with exertion. No chest pain, palpitations, dizziness, syncope or near syncope. No fever, chills, cough, hematochezia, melena, or hemoptysis. classroom monitor reviewed. Patient has been in atrial fibrillation rate controlled 70s to 90s with PVCs. He did have short runs of V. tach averaging 2- 3 beats, longest run of V. tach was 9 beats patient was asymptomatic. Has been receiving gabapentin and Ativan which has been making him fatigued. He has been resting in bed and has not been up ambulating. Ravi catheter is draining dark yellow urine. Patient continues to drink alcohol, states 1-2 beers every other week when he goes to the [facility]. He is smoking between 1 to 2 packs of cigarettes daily. Currently using a nicotine patch. When questioned about ICD given his reduced EF he states that he is now considering it. Past medical history: Chronic systolic heart failure, EF around 20%-refused ICD in the past Dyslipidemia Diabetes type 2 Chronic persistent A. fib Hypertension History of alcoholism Ongoing tobacco use COPD with lung nodule-history of agent orange exposure Urinary retention Most recent cardiology note: 70 year old year old male with chronic systolic heart failure, presumed ischemic cardiomyopathy given abnormal EKG with findings of age undetermined septal infarction, repolarization abnormalities suggestive of ischemia, and cardiac risk factors of previous dyslipidemia, age, cigarette smoking. Coexistent component of alcohol related cardiomyopathy also a possibility. Persistent atrial fibrillation noted, rapid ventricular response today. Moderate mitral regurgitation secondary mitral regurgitation related to his underlying cardiomyopathy Allergies Allergy/AdvReac Type Severity Reaction Status Date / Time No Known Allergies Allergy Unverified 12/13/20 19:25 Home Medications Medication Instructions Recorded Confirmed Type alprazolam 1 mg tablet 1 mg PO TID PRN 12/11/19 12/13/20 History glipizide 10 mg tablet 10 mg PO DAILY 12/11/19 12/13/20 History simvastatin 80 mg tablet 80 mg PO DAILY 12/11/19 12/13/20 History metformin 500 mg tablet 500 mg PO DAILY 12/13/20 12/13/20 History furosemide 40 mg tablet (Lasix) 40 mg PO QAM #30 tab 12/19/20 12/13/20 Rx lisinopril 10 mg tablet 10 mg PO DAILY #30 tab 12/19/20 Rx metoprolol succinate 25 mg 25 mg PO QAM #30 tab 12/19/20 Rx tablet,extended release 24 hr nicotine 21 mg/24 hr daily 21 mg TRANSDERMAL DAILY #14 ea 12/19/20 Rx transdermal patch (Nicoderm CQ) spironolactone 25 mg tablet 12.5 mg PO DAILY #30 tab 12/19/20 Rx tamsulosin 0.4 mg capsule 0.4 mg PO HS #30 cap 12/19/20 Rx warfarin 7.5 mg tablet (Jantoven) 7.5 mg PO DAILY@1600 #20 tab 12/19/20 Rx finasteride 5 mg tablet 5 mg PO DAILY #90 tab 12/29/20 12/29/20 Rx Patient History Medical History Ascites Atrial fibrillation CHF (congestive heart failure) Social History Smoking Status: Current every day smoker Tobacco Type: Cigarettes Cigarettes Per Day: 20; Second Hand Exposure: Yes; Hx Alcohol Use: Yes Alcohol type: beer Hx Substance Use: No Preferred Language: Yakut Communication Ability: Effective 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 A+Ox3. HEENT: Normocephalic. Atraumatic. PERRL. EOMI. Conjunctiva and sclera clear. NECK: No carotid bruits. No JVD. Carotid upstrokes are brisk. Heart: Regular rate, regular. S1 and S2 noted. +systolic murmur, No rubs, gallops. PMI non displaced. Lungs: Coarse lung sounds bilaterally, +wheezing and rales Abdomen: Normal bowel sounds. Soft. Nontender. No masses or organomegaly. No abdominal bruits. Extremities: +2 bilateral pitting lower extremity edema to knees. No clubbing or cyanosis. Pulses: radial=2/4, posterior tibial=2/4, dorsalis pedis = 2/4. NEURO: No focal deficits. PSYCH: Normal. Results & Data ([facility]) Vital Signs (Past 12 Hours) Vital Signs Temp Pulse Pulse Resp BP Pulse Ox 12/14/20 11:38 36.9 C 86 18 131/63 95 12/14/20 07:56 36.8 C 79 18 129/68 96 12/14/20 07:18 93 H 12/14/20 05:46 78 17 123/84 92 12/14/20 03:59 36.7 C 96 H 24 98/63 L 92 Summary of transthoracic echocardiogram performed 01/18/2020: The qualitative LV ejection fraction is 25-29% (severely reduced). The left ventricular cavity size is severely enlarged The left atrium is moderately enlarged (42-48 ml/m^2). Moderate mitral regurgitation is present Mild tricuspid regurgitation is present. Laboratory Results 12/14/20 12/14/20 12/14/20 Range/Units 11:17 07:24 07:02 WBC (4.8-10.8) K/uL RBC (4.7-6.1) M/uL Hgb (14.0-18.0) g/dL Hct (42-52) % MCV (80-100) fL MCH (25-34) pg MCHC (32-36) g/dL RDW Std Deviation (36.4-46.3) fL RDW Coeff of Tiffany (11.5-14.5) % Plt Count (130-400) K/uL MPV (7.4-10.4) fL Immature Gran % (Auto) % Neut % (Auto) % Lymph % (Auto) % [place] % (Auto) % Eos % (Auto) % Baso % (Auto) % Neut # (Auto) (1.4-6.5) K/uL Lymph # (Auto) (1.2-3.4) K/uL [place] # (Auto) (0.11-0.59) K/uL Eos # (Auto) (0-0.5) K/uL Baso # (Auto) (0-0.2) K/uL Immature Gran # (Auto) (0.00-0.02) K/uL PT (9.0-12.0) Seconds INR (0.9-1.1) APTT 40.7 H (21.0-31.0) Seconds PTT Ratio 1.5 Sodium (136-145) mmol/L Potassium (3.5-5.1) mmol/L Chloride (98-107) mmol/L Carbon Dioxide (21-32) mmol/L Anion Gap (3-11) BUN (7-18) mg/dl Creatinine (0.6-1.4) mg/dl Est Cr Clr Drug Dosing ml/min Est GFR ( Amer) ml/min Est GFR (Non-Af Amer) ml/min BUN/Creatinine Ratio (10-20) Glucose (70-99) mg/dl POC Glucose 96 113 H (70-99) mg/dl Estimat Average Glucose mg/dl Hemoglobin A1c (4.5-5.6) % Calcium (8.5-10.1) mg/dl Magnesium (1.8-2.4) mg/dl Total Bilirubin (0.2-1) mg/dl AST (15-37) U/L ALT (12-78) U/L Alkaline Phosphatase (45-117) U/L Troponin I (0-0.045) ng/ml NT-Pro-B Natriuret Pep (0-900) pg/ml Total Protein (6.4-8.2) gm/dl Albumin (3.4-5.0) gm/dl Globulin (2.5-4.0) gm/dl Albumin/Globulin Ratio (0.9-2) Prostate Specific Ag (0-4) ng/ml TSH (0.300-4.500) uIu/ml Urine Color Urine Appearance (Clear) Urine pH (4.5-7.5) Ur Specific [place] (1.000-1.030) Urine Protein (Negative) Urine Glucose (UA) (Negative) Urine Ketones (Negative) Urine Blood (Negative) Urine Nitrite (Negative) Urine Bilirubin (Negative) Urine Urobilinogen (Negative) Ur Leukocyte Esterase (Negative) COVID-19 Eval Order SARS-CoV-2 (PCR) (Negative) 12/14/20 12/14/20 12/14/20 Range/Units 05:40 05:40 05:40 WBC (4.8-10.8) K/uL RBC (4.7-6.1) M/uL Hgb (14.0-18.0) g/dL Hct (42-52) % MCV (80-100) fL MCH (25-34) pg MCHC (32-36) g/dL RDW Std Deviation (36.4-46.3) fL RDW Coeff of Tiffany (11.5-14.5) % Plt Count (130-400) K/uL MPV (7.4-10.4) fL Immature Gran % (Auto) % Neut % (Auto) % Lymph % (Auto) % [place] % (Auto) % Eos % (Auto) % Baso % (Auto) % Neut # (Auto) (1.4-6.5) K/uL Lymph # (Auto) (1.2-3.4) K/uL [place] # (Auto) (0.11-0.59) K/uL Eos # (Auto) (0-0.5) K/uL Baso # (Auto) (0-0.2) K/uL Immature Gran # (Auto) (0.00-0.02) K/uL PT 13.7 H (9.0-12.0) Seconds INR 1.4 H (0.9-1.1) APTT (21.0-31.0) Seconds PTT Ratio Sodium (136-145) mmol/L Potassium (3.5-5.1) mmol/L Chloride (98-107) mmol/L Carbon Dioxide (21-32) mmol/L Anion Gap (3-11) BUN (7-18) mg/dl Creatinine (0.6-1.4) mg/dl Est Cr Clr Drug Dosing ml/min Est GFR ( Amer) ml/min Est GFR (Non-Af Amer) ml/min BUN/Creatinine Ratio (10-20) Glucose (70-99) mg/dl POC Glucose (70-99) mg/dl Estimat Average Glucose 160 mg/dl Hemoglobin A1c 7.2 H (4.5-5.6) % Calcium (8.5-10.1) mg/dl Magnesium (1.8-2.4) mg/dl Total Bilirubin (0.2-1) mg/dl AST (15-37) U/L ALT (12-78) U/L Alkaline Phosphatase (45-117) U/L Troponin I (0-0.045) ng/ml NT-Pro-B Natriuret Pep (0-900) pg/ml Total Protein (6.4-8.2) gm/dl Albumin (3.4-5.0) gm/dl Globulin (2.5-4.0) gm/dl Albumin/Globulin Ratio (0.9-2) Prostate Specific Ag 2.810 (0-4) ng/ml TSH (0.300-4.500) uIu/ml Urine Color Urine Appearance (Clear) Urine pH (4.5-7.5) Ur Specific [place] (1.000-1.030) Urine Protein (Negative) Urine Glucose (UA) (Negative) Urine Ketones (Negative) Urine Blood (Negative) Urine Nitrite (Negative) Urine Bilirubin (Negative) Urine Urobilinogen (Negative) Ur Leukocyte Esterase (Negative) COVID-19 Eval Order SARS-CoV-2 (PCR) (Negative) 12/14/20 12/14/20 12/13/20 Range/Units 05:40 05:40 20:43 WBC 7.08 (4.8-10.8) K/uL RBC 4.37 L (4.7-6.1) M/uL Hgb 13.7 L (14.0-18.0) g/dL Hct 41.3 L (42-52) % MCV 94.5 (80-100) fL MCH 31.4 (25-34) pg MCHC 33.2 (32-36) g/dL RDW Std Deviation 49.2 H (36.4-46.3) fL RDW Coeff of Tiffany 14.4 (11.5-14.5) % Plt Count 187 (130-400) K/uL MPV 10.8 H (7.4-10.4) fL Immature Gran % (Auto) 0.1 % Neut % (Auto) 64.2 % Lymph % (Auto) 22.6 % [place] % (Auto) 10.9 % Eos % (Auto) 1.4 % Baso % (Auto) 0.8 % Neut # (Auto) 4.54 (1.4-6.5) K/uL Lymph # (Auto) 1.60 (1.2-3.4) K/uL [place] # (Auto) 0.77 H (0.11-0.59) K/uL Eos # (Auto) 0.10 (0-0.5) K/uL Baso # (Auto) 0.06 (0-0.2) K/uL Immature Gran # (Auto) 0.01 (0.00-0.02) K/uL PT (9.0-12.0) Seconds INR (0.9-1.1) APTT (21.0-31.0) Seconds PTT Ratio Sodium 140 (136-145) mmol/L Potassium 3.7 (3.5-5.1) mmol/L Chloride 105 (98-107) mmol/L Carbon Dioxide 32 (21-32) mmol/L Anion Gap 3.0 (3-11) BUN 25 H (7-18) mg/dl Creatinine 1.18 (0.6-1.4) mg/dl Est Cr Clr Drug Dosing 64.8 ml/min Est GFR ( Amer) 72.5 ml/min Est GFR (Non-Af Amer) 62.6 ml/min BUN/Creatinine Ratio 20.8 H (10-20) Glucose 83 (70-99) mg/dl POC Glucose (70-99) mg/dl Estimat Average Glucose mg/dl Hemoglobin A1c (4.5-5.6) % Calcium 9.1 (8.5-10.1) mg/dl Magnesium 1.9 (1.8-2.4) mg/dl Total Bilirubin (0.2-1) mg/dl AST (15-37) U/L ALT (12-78) U/L Alkaline Phosphatase (45-117) U/L Troponin I < 0.015 (0-0.045) ng/ml NT-Pro-B Natriuret Pep (0-900) pg/ml Total Protein (6.4-8.2) gm/dl Albumin (3.4-5.0) gm/dl Globulin (2.5-4.0) gm/dl Albumin/Globulin Ratio (0.9-2) Prostate Specific Ag (0-4) ng/ml TSH (0.300-4.500) uIu/ml Urine Color Urine Appearance (Clear) Urine pH (4.5-7.5) Ur Specific [place] (1.000-1.030) Urine Protein (Negative) Urine Glucose (UA) (Negative) Urine Ketones (Negative) Urine Blood (Negative) Urine Nitrite (Negative) Urine Bilirubin (Negative) Urine Urobilinogen (Negative) Ur Leukocyte Esterase (Negative) COVID-19 Eval Order SARS-CoV-2 (PCR) NEGATIVE (Negative) 12/13/20 12/13/20 12/13/20 Range/Units 20:43 18:00 17:51 WBC (4.8-10.8) K/uL RBC (4.7-6.1) M/uL Hgb (14.0-18.0) g/dL Hct (42-52) % MCV (80-100) fL MCH (25-34) pg MCHC (32-36) g/dL RDW Std Deviation (36.4-46.3) fL RDW Coeff of Tiffany (11.5-14.5) % Plt Count (130-400) K/uL MPV (7.4-10.4) fL Immature Gran % (Auto) % Neut % (Auto) % Lymph % (Auto) % [place] % (Auto) % Eos % (Auto) % Baso % (Auto) % Neut # (Auto) (1.4-6.5) K/uL Lymph # (Auto) (1.2-3.4) K/uL [place] # (Auto) (0.11-0.59) K/uL Eos # (Auto) (0-0.5) K/uL Baso # (Auto) (0-0.2) K/uL Immature Gran # (Auto) (0.00-0.02) K/uL PT 13.3 H (9.0-12.0) Seconds INR 1.3 H (0.9-1.1) APTT 26.0 (21.0-31.0) Seconds PTT Ratio 1.0 Sodium (136-145) mmol/L Potassium (3.5-5.1) mmol/L Chloride (98-107) mmol/L Carbon Dioxide (21-32) mmol/L Anion Gap (3-11) BUN (7-18) mg/dl Creatinine (0.6-1.4) mg/dl Est Cr Clr Drug Dosing ml/min Est GFR ( Amer) ml/min Est GFR (Non-Af Amer) ml/min BUN/Creatinine Ratio (10-20) Glucose (70-99) mg/dl POC Glucose (70-99) mg/dl Estimat Average Glucose mg/dl Hemoglobin A1c (4.5-5.6) % Calcium (8.5-10.1) mg/dl Magnesium (1.8-2.4) mg/dl Total Bilirubin (0.2-1) mg/dl AST (15-37) U/L ALT (12-78) U/L Alkaline Phosphatase (45-117) U/L Troponin I (0-0.045) ng/ml NT-Pro-B Natriuret Pep (0-900) pg/ml Total Protein (6.4-8.2) gm/dl Albumin (3.4-5.0) gm/dl Globulin (2.5-4.0) gm/dl Albumin/Globulin Ratio (0.9-2) Prostate Specific Ag (0-4) ng/ml TSH (0.300-4.500) uIu/ml Urine Color Yellow Urine Appearance Clear (Clear) Urine pH 5.5 (4.5-7.5) Ur Specific [place] 1.011 (1.000-1.030) Urine Protein Negative (Negative) Urine Glucose (UA) Negative (Negative) Urine Ketones Negative (Negative) Urine Blood Negative (Negative) Urine Nitrite Negative (Negative) Urine Bilirubin Negative (Negative) Urine Urobilinogen Negative (Negative) Ur Leukocyte Esterase Negative (Negative) COVID-19 Eval Order Covid19 at [facility] SARS-CoV-2 (PCR) (Negative) 12/13/20 12/13/20 Range/Units 17:30 17:30 WBC 6.37 (4.8-10.8) K/uL RBC 4.37 L (4.7-6.1) M/uL Hgb 13.8 L (14.0-18.0) g/dL Hct 41.3 L (42-52) % MCV 94.5 (80-100) fL MCH 31.6 (25-34) pg MCHC 33.4 (32-36) g/dL RDW Std Deviation 49.1 H (36.4-46.3) fL RDW Coeff of Tiffany 14.3 (11.5-14.5) % Plt Count 204 (130-400) K/uL MPV 11.1 H (7.4-10.4) fL Immature Gran % (Auto) 0.3 % Neut % (Auto) 65.2 % Lymph % (Auto) 21.5 % [place] % (Auto) 10.8 % Eos % (Auto) 1.9 % Baso % (Auto) 0.3 % Neut # (Auto) 4.15 (1.4-6.5) K/uL Lymph # (Auto) 1.37 (1.2-3.4) K/uL [place] # (Auto) 0.69 H (0.11-0.59) K/uL Eos # (Auto) 0.12 (0-0.5) K/uL Baso # (Auto) 0.02 (0-0.2) K/uL Immature Gran # (Auto) 0.02 (0.00-0.02) K/uL PT (9.0-12.0) Seconds INR (0.9-1.1) APTT (21.0-31.0) Seconds PTT Ratio Sodium 139 (136-145) mmol/L Potassium 3.6 (3.5-5.1) mmol/L Chloride 104 (98-107) mmol/L Carbon Dioxide 31 (21-32) mmol/L Anion Gap 4.0 (3-11) BUN 23 H (7-18) mg/dl Creatinine 1.19 (0.6-1.4) mg/dl Est Cr Clr Drug Dosing 69.8 ml/min Est GFR ( Amer) 71.8 ml/min Est GFR (Non-Af Amer) 62.0 ml/min BUN/Creatinine Ratio 19.5 (10-20) Glucose 106 H (70-99) mg/dl POC Glucose (70-99) mg/dl Estimat Average Glucose mg/dl Hemoglobin A1c (4.5-5.6) % Calcium 9.1 (8.5-10.1) mg/dl Magnesium 2.0 (1.8-2.4) mg/dl Total Bilirubin 1.3 H (0.2-1) mg/dl AST 27 (15-37) U/L ALT 19 (12-78) U/L Alkaline Phosphatase 185 H (45-117) U/L Troponin I < 0.015 (0-0.045) ng/ml NT-Pro-B Natriuret Pep 8334 H (0-900) pg/ml Total Protein 7.2 (6.4-8.2) gm/dl Albumin 3.3 L (3.4-5.0) gm/dl Globulin 3.9 (2.5-4.0) gm/dl Albumin/Globulin Ratio 0.8 L (0.9-2) Prostate Specific Ag (0-4) ng/ml TSH 1.530 (0.300-4.500) uIu/ml Urine Color Urine Appearance (Clear) Urine pH (4.5-7.5) Ur Specific [place] (1.000-1.030) Urine Protein (Negative) Urine Glucose (UA) (Negative) Urine Ketones (Negative) Urine Blood (Negative) Urine Nitrite (Negative) Urine Bilirubin (Negative) Urine Urobilinogen (Negative) Ur Leukocyte Esterase (Negative) COVID-19 Eval Order SARS-CoV-2 (PCR) (Negative) (1) Atrial fibrillation Atrial fibrillation type: longstanding persistent Qualified Code(s): I48.11 - Longstanding persistent atrial fibrillation (2) Hypertension Hypertension type: unspecified Qualified Code(s): I10 - Essential (primary) hypertension
[2020-12-14 14:29] LABS: Partial Thromboplastin Ratio 1.7
[2020-12-14 14:30] LABS: BUN Creatinine Ratio 21.3 (10-20); Creatinine Clr Calc Pharmacy 61.7 ml/min; Est GFR (African American) 68.3 ml/min; Est GFR (Non-African American) 58.9 ml/min
[2020-12-14 14:34] LABS: Partial Thromboplastin Time 45.9 Seconds (21.0-31.0)
[2020-12-14] MEDS: METOPROLOL SUCC 25MG EXT REL TAB PO SCH (15:10)
[2020-12-14] MEDS ORDERED: WARFARIN SOD 2.5 MG TAB PO SCH (16:00)
[2020-12-14] MEDS: ALPRAZolam 0.5 MG TABLET PO PRN (19:34)
[2020-12-14] MEDS: TAMSULOSIN HCL 0.4 MG CAP PO SCH (20:10)
[2020-12-14 21:49] LABS: Partial Thromboplastin Ratio 2.2
[2020-12-14 21:56] LABS: Partial Thromboplastin Time 56.6 Seconds (21.0-31.0)
--- NOTE | 2020-12-14 22:35 | Electrocardiogram Report ---
Test Reason : Blood Pressure : / mmHG Vent. Rate : 093 BPM Atrial Rate : 089 BPM P-R Int : 000 ms QRS Dur : 108 ms QT Int : 392 ms P-R-T Axes : 000 046 269 degrees QTc Int : 487 ms Poor data quality, interpretation may be adversely affected Atrial fibrillation with premature ventricular or aberrantly conducted complexes Low voltage QRS Septal infarct (cited on or before 11-DEC-2019) Abnormal ECG When compared with ECG of 11-DEC-2019 19:07, No significant change was found Confirmed by Sher Calderon ([id number]) on 12/14/2020 10:34:59 PM Referred By: REFERRED SELF Confirmed By:Sher Calderon
[2020-12-15] MEDS: GABAPENTIN 600 MG TAB PO SCH ×3 (05:14→23:04)
--- NOTE | 2020-12-15 05:46 | Electrocardiogram Report ---
Test Reason : Blood Pressure : / mmHG Vent. Rate : 087 BPM Atrial Rate : 085 BPM P-R Int : 000 ms QRS Dur : 116 ms QT Int : 424 ms P-R-T Axes : 000 051 228 degrees QTc Int : 510 ms Atrial fibrillation with premature ventricular or aberrantly conducted complexes Low voltage QRS Septal infarct (cited on or before 11-DEC-2019) Prolonged QT Abnormal ECG When compared with ECG of 13-DEC-2020 17:18, No significant change Confirmed by Sher Calderon ([id number]) on 12/15/2020 5:46:19 AM Referred By: REFERRED SELF Confirmed By:Sher Calderon
[2020-12-15 06:46] LABS: INR 1.5 (0.9-1.1); Partial Thromboplastin Ratio 2.3; Prothrombin Time 14.8 Seconds (9.0-12.0)
[2020-12-15 06:49] LABS: Partial Thromboplastin Time 61.7 Seconds (21.0-31.0)
[2020-12-15 07:10] LABS: BUN Creatinine Ratio 19.9 (10-20); Calcium 9.3 mg/dl (8.5-10.1); Creatinine Clr Calc Pharmacy 58.4 ml/min; Phosphorus 3.5 mg/dl (2.5-4.9); Potassium 4.2 mmol/L (3.5-5.1)
[2020-12-15] MEDS: THIAMINE HCL 100 MG in SYRINGE 9 ML IV SCH (07:59)
[2020-12-15] MEDS: FOLIC ACID 1 MG in SYRINGE 9.8 ML IV SCH (07:59)
[2020-12-15] MEDS: NICOTINE 21 MG/24 HR TDSY TD SCH (08:00)
[2020-12-15] MEDS: FUROSEMIDE 40 MG in SYRINGE 0 ML IV SCH ×2 (08:00→17:04)
[2020-12-15] MEDS: SIMVASTATIN 80 MG TAB PO SCH (08:00)
[2020-12-15] MEDS: CEROVITE ADV FORMULA TAB PO SCH (08:00)
[2020-12-15] MEDS: lisinopril 5 MG TAB PO SCH (08:00)
[2020-12-15] MEDS: INSULIN ASPART 100 UNITS/ML 3 ML PEN SC SCH ×4 (08:01→20:26)
--- NOTE | 2020-12-15 08:08 | Hospitalist Progress Note ---
Date of Service December 15, 2020 Assessment & Plan (1) CHF (congestive heart failure): This is a 70-year-old male, who presents with worsening lower extremity edema and found to be in [id number] systolic congestive heart failure. 1. Efhlw-nw-srjstgh systolic congestive heart failure, last ejection fraction was around 20%. Previously declined ICD, now considering it. Received IV Lasix 40 mg in the ER. Continued on Iv lasix 40 bid. Continued home Coreg on admission initially. Switched to metoprolol succinate per cardiology. Daily weights, I's and O's. Echocardiogram - moderately dilated LV chamber size with global wall thinning. Severely reduced LV systolic function with severe global hypokinesis, EF less than 15%. Grade 3 diastolic dysfunction consistent with restrictive physiology. Dilated RV chamber size with reduced systolic function. Dilated mitral annulus with poor leaflet coaptation. Moderate mitral regurg with a centrally directed jet. Moderate tricuspid regurg. Severe biatrial enlargement. Compared to previous study of January 2020, LV systolic function has further declined. RV systolic failure is now present. Cardiology consulted. Cont. to monitor in the tele floor. 2. History of diabetes: Holding metformin and glipizide. Placed on insulin sliding scale. Current HbA1c 7.2% Follow the blood sugars while inpt. 3. Hyperlipidemia: Continue statin. 4. History of atrial fibrillation: On Coreg at home, now switched to metoprolol. Currently on Coumadin 2.5 mg p.o. daily. Increased to 4mg daily. He says this has been cut in half because of his easy bruising . O admission INR 1.3 Today, his INR is 1.4 He was given 2.5 of Coumadin on admission and placed on IV heparin low dose bridging and follow PT/INR and adjust the Coumadin dosing. 5. Hypertension: Continued his Coreg and lisinopril initially. Now on metoprolol, lisinopril. Monitor the blood pressure. 6. History of alcoholism: He says he is currently drinking only 7 beers a week and one shot of vodka a week. Placed him on gabapentin protocol and Ativan p.r.n. Continue his home alprazolam p.o. t.i.d. p.r.n. 7. History of ongoing tobacco abuse: Nicotine patch. 8. History of possible chronic obstructive pulmonary disease: Will place on nebs p.r.n. 9. Urinary retention: Currently status post Ravi. Consulted urology for further recommendations. PSA ordered - 2.8 Will need Ravi for 10-14 days, follow up w/ urology as outpt. 10. History of lung nodule, 5 mm, left upper lobe, in the last admission. Needs to follow up with a CT chest. 11. History of [employer] [place] exposure as per the patient. Disposition: Admit to tele floor. PT, OT prior to discharge. Social service to help with discharge planning. Follow up with cardiology and PCP. Admission and Anticipated Discharge Date Admission Date: December 13, 2020 Subjective Patient seen in follow-up of CHF exacerbation, urinary retention Currently he is sitting up in bed, in no acute distress, however says he "felt panicky" last evening reports similar episode this AM Ravi catheter was placed in the ER, and draining the urine Patient says that he feels better, breathing better since admission, denies any chest pain or palpitations On telemetry yesterday had V. tach 9 beat in the morning, and then several short 2 to 3-second beats, patient asymptomatic during these episodes. This AM again 8 beat of V. tach. At that time asymptomatic. Patient was previously seen by Dr. Vazquez and Dr. Bang, from [facility] cardiology, he says that he recently established care with cardiology in [facility] Also now considering ICD. Review of Systems Review of Systems: All systems reviewed & are unremarkable except as noted in HPI & below Constitutional: no fever and no chills Respiratory: + dyspnea (improved) Cardiovascular: no chest pain and no palpitations Gastrointestinal: no abdominal pain, no nausea and no vomiting Physical Exam Physical Exam: GENERAL: The patient is of moderate build, not in acute distress. HEENT: NC/AT, EOMI, Pupils equal, round and reactive to light. Oral mucosa moist. NECK: No JVD, no neck masses. CARDIOVASCULAR: S1 and S2 heard. Regular rate and rhythm. + syst. murmur RESPIRATORY: Normal AP diameter. No accessory muscle use. Occasional wheezing. + Bibasilar crackles ABDOMEN: Soft, bowel sounds present. Ventral hernia seen in the umbilical region. No guarding, no rigidity. NEURO: Alert and oriented x3 and answering questions appropriately. No facial asymmetry, speech fluent, moves extremities EXTREMITIES: 2+ Bilateral lower extremity gross edema . Mild erythema seen. Results & Data Results & Data ([facility]) Vital Signs (Past 12 Hours) Vital Signs Temp Pulse Pulse Resp BP Pulse Ox 12/15/20 03:22 36.6 C 64 18 103/67 91 12/14/20 23:51 83 12/14/20 23:14 36.4 C L 81 18 111/72 93 12/14/20 20:32 109/76 Laboratory Results 12/15/20 12/15/20 12/15/20 Range/Units 07:14 06:08 06:08 PT 14.8 H (9.0-12.0) Seconds INR 1.5 H (0.9-1.1) APTT 61.7 H* (21.0-31.0) Seconds PTT Ratio 2.3 Sodium 137 (136-145) mmol/L Potassium 4.2 (3.5-5.1) mmol/L Chloride 101 (98-107) mmol/L Carbon Dioxide 32 (21-32) mmol/L Anion Gap 4.0 (3-11) BUN 28 H (7-18) mg/dl Creatinine 1.42 H (0.6-1.4) mg/dl Est Cr Clr Drug Dosing 58.4 ml/min Est GFR ( Amer) 58.0 ml/min Est GFR (Non-Af Amer) 50.0 ml/min BUN/Creatinine Ratio 19.9 (10-20) Glucose 108 H (70-99) mg/dl POC Glucose 125 H (70-99) mg/dl Calcium 9.3 (8.5-10.1) mg/dl Phosphorus 3.5 (2.5-4.9) mg/dl Magnesium 2.0 (1.8-2.4) mg/dl 12/14/20 12/14/20 12/14/20 Range/Units 21:14 20:07 19:07 PT (9.0-12.0) Seconds INR (0.9-1.1) APTT 56.6 H* (21.0-31.0) Seconds PTT Ratio 2.2 Sodium (136-145) mmol/L Potassium (3.5-5.1) mmol/L Chloride (98-107) mmol/L Carbon Dioxide (21-32) mmol/L Anion Gap (3-11) BUN (7-18) mg/dl Creatinine (0.6-1.4) mg/dl Est Cr Clr Drug Dosing ml/min Est GFR ( Amer) ml/min Est GFR (Non-Af Amer) ml/min BUN/Creatinine Ratio (10-20) Glucose (70-99) mg/dl POC Glucose 134 H 136 H (70-99) mg/dl Calcium (8.5-10.1) mg/dl Phosphorus (2.5-4.9) mg/dl Magnesium (1.8-2.4) mg/dl 12/14/20 12/14/20 12/14/20 Range/Units 16:08 13:45 13:45 PT (9.0-12.0) Seconds INR (0.9-1.1) APTT 45.9 H* (21.0-31.0) Seconds PTT Ratio 1.7 Sodium 138 (136-145) mmol/L Potassium 4.0 (3.5-5.1) mmol/L Chloride 104 (98-107) mmol/L Carbon Dioxide 29 (21-32) mmol/L Anion Gap 5.0 (3-11) BUN 26 H (7-18) mg/dl Creatinine 1.24 (0.6-1.4) mg/dl Est Cr Clr Drug Dosing 61.7 ml/min Est GFR ( Amer) 68.3 ml/min Est GFR (Non-Af Amer) 58.9 ml/min BUN/Creatinine Ratio 21.3 H (10-20) Glucose 177 H (70-99) mg/dl POC Glucose 117 H (70-99) mg/dl Calcium 9.0 (8.5-10.1) mg/dl Phosphorus (2.5-4.9) mg/dl Magnesium (1.8-2.4) mg/dl 12/14/20 Range/Units 11:17 PT (9.0-12.0) Seconds INR (0.9-1.1) APTT (21.0-31.0) Seconds PTT Ratio Sodium (136-145) mmol/L Potassium (3.5-5.1) mmol/L Chloride (98-107) mmol/L Carbon Dioxide (21-32) mmol/L Anion Gap (3-11) BUN (7-18) mg/dl Creatinine (0.6-1.4) mg/dl Est Cr Clr Drug Dosing ml/min Est GFR ( Amer) ml/min Est GFR (Non-Af Amer) ml/min BUN/Creatinine Ratio (10-20) Glucose (70-99) mg/dl POC Glucose 96 (70-99) mg/dl Calcium (8.5-10.1) mg/dl Phosphorus (2.5-4.9) mg/dl Magnesium (1.8-2.4) mg/dl Medications Administered Current Inpatient Medications Acetaminophen (Acetaminophen 325 Mg Tab) 650 mg PO Q4H PRN PRN Reason: Pain or Fever Stop: 01/12/21 22:41 Alprazolam (Alprazolam 0.5 Mg Tablet) 1 mg PO TID PRN PRN Reason: Anxiety Stop: 01/13/21 06:39 Last Admin: 12/14/20 19:34 Dose: 1 mg Documented by: Dextrose (Dextrose 50% 50 Ml Syringe) 25 - 50 ml IV UD PRN; Protocol PRN Reason: Hypoglycemia Protocol Stop: 01/12/21 23:29 Gabapentin (Gabapentin 600 Mg Tab) 600 mg PO Q8H [facility] Stop: 12/15/20 14:01 Last Admin: 12/15/20 05:14 Dose: 600 mg Documented by: Gabapentin (Gabapentin 600 Mg Tab) 600 mg PO Q12H [facility] Stop: 12/16/20 12:01 Gabapentin (Gabapentin 600 Mg Tab) 600 mg PO Q24H [facility] Stop: 12/17/20 12:01 Glucagon (Glucagon For Inj 1 Mg Vial) 1 mg IM UD PRN; Protocol PRN Reason: Hypoglycemia Protocol Stop: 01/12/21 23:29 Glucose (Glucose 40% Gel 15 Gm Tube) 15 - 30 gm PO UD PRN; Protocol PRN Reason: Hypoglycemia Protocol Stop: 01/12/21 23:29 Glucose (Glucose 10 Tabs/Tube) 4 - 8 tabs PO UD PRN; Protocol PRN Reason: Hypoglycemia Protocol Stop: 01/12/21 23:29 Thiamine HCl 100 mg/ Syringe 10 mls @ 2 mls/min IV QAM [facility] Stop: 01/12/21 22:41 Last Admin: 12/15/20 07:59 Dose: 2 mls/min Documented by: Folic Acid 1 mg/ Syringe 10 mls @ 5 mls/min IV QAM [facility] Stop: 01/12/21 22:41 Last Admin: 12/15/20 07:59 Dose: 5 mls/min Documented by: Heparin Sodium/Dextrose (Heparin Sodium/Dextrose) 25,000 units in 500 mls @ 24 mls/hr IV .[id number] [facility]; Protocol Stop: 01/12/21 22:41 Last Titration: 12/15/20 06:56 Dose: 1,200 units/hr, 24 mls/hr Documented by: Furosemide 40 mg/ Syringe 4 mls @ 4 mls/min IV BID17 [facility] Stop: 01/13/21 08:59 Last Admin: 12/15/20 08:00 Dose: 4 mls/min Documented by: Insulin Aspart (Insulin Aspart 100 Units/Ml 3 Ml Pen) 0 units SC ACHS [facility] Stop: 01/13/21 07:29 Last Admin: 12/15/20 08:01 Dose: 3 units Documented by: Levalbuterol HCl (Levalbuterol Hcl 1.25 Mg/3 Ml Neb) 1.25 mg NEB Q4H PRN PRN Reason: Shortness Of Breath Or Wheezing Stop: 01/12/21 23:14 Lisinopril (Lisinopril 5 Mg Tab) 5 mg PO DAILY [facility] Stop: 01/13/21 08:59 Last Admin: 12/15/20 08:00 Dose: 5 mg Documented by: Lorazepam (Lorazepam 1 Mg Tab) 1 - 3 mg PO UD PRN; Protocol PRN Reason: EtoH Withdrawal AWSS 6-10+ Stop: 01/12/21 22:41 Metoprolol Succinate (Metoprolol Succ 25mg Ext Rel Tab) 25 mg PO QAM [facility] Stop: 01/13/21 13:59 Last Admin: 12/14/20 15:10 Dose: 25 mg Documented by: Miscellaneous (Remove Nicoderm Patch) 1 ea N/A DAILY@0859 [facility] Stop: 01/13/21 08:58 Last Admin: 12/15/20 08:01 Dose: 1 ea Documented by: Miscellaneous (Carbohydrates For Hypoglycemia ) 15 - 30 gm PO UD PRN PRN Reason: Hypoglycemia Treatment Stop: 01/12/21 23:29 Multivitamins/Minerals (Cerovite Adv Formula Tab) [facility] Stop: 01/13/21 08:59 Last Admin: 12/15/20 08:00 Dose: 1 tab Documented by: Nicotine (Nicotine 21 Mg/24 Hr Tdsy) 21 mg TD DAILY [facility] Stop: 01/12/21 22:41 Last Admin: 12/15/20 08:00 Dose: 21 mg Documented by: Nitroglycerin (Nitroglycerin Sl 0.4 Mg/Tab Tab) 0.4 mg SL UD PRN PRN Reason: Chest Pain Stop: 01/12/21 22:41 Polyethylene Glycol (Polyethylene (Miralax) 17 Gm Pack) 17 gm PO DAILY PRN PRN Reason: Constipation Stop: 01/12/21 22:41 Simvastatin (Simvastatin 80 Mg Tab) 80 mg PO DAILY [facility] Stop: 01/13/21 08:59 Last Admin: 12/15/20 08:00 Dose: 80 mg Documented by: Tamsulosin HCl (Tamsulosin Hcl 0.4 Mg Cap) 0.4 mg PO HS [facility] Stop: 01/13/21 20:59 Last Admin: 12/14/20 20:10 Dose: 0.4 mg Documented by: Warfarin Sodium (Warfarin Sod 4 Mg Tab) 4 mg PO DAILY@1600 [facility] Stop: 01/14/21 15:59 (1) CHF (congestive heart failure) Heart failure chronicity: acute Heart failure type: unspecified Qualified Code(s): I50.9 - Heart failure, unspecified
[2020-12-15] MEDS: METOPROLOL SUCC 25MG EXT REL TAB PO SCH (09:47)
--- NOTE | 2020-12-15 14:07 | Cardiology Progress Note ---
Date of Service December 15, 2020 Assessment & Plan (1) Acute on chronic heart failure with reduced ejection fraction and diastolic dysfunction: Hypervolemic on exam. Responding well to IV furosemide 40 mg twice daily, will continue IV diuresis at this time. Requiring electrolyte replacement. [place] function remaining stable. -Continue IV Lasix 40 mg twice daily -Repeat BMP now and daily-patient will likely require daily p.o. potassium supplementation, recommend replacing appropriately -Continue daily weights, 2 g sodium restriction and a 2L fluid restriction -Repeat echo shows further decline of LV systolic function. Patient states he is still not interested in cardiac catheterization or ICD placement. -We will continue to titrate guideline directed medical therapy. -Heart rate controlled but blood pressure little on the low side. We will hold off on further medication adjustments at this time in favor of continued diuresis. -Continue to follow volume status clinically (2) Atrial fibrillation: Rate controlled. Asymptomatic. Anticoagulated on Coumadin, subtherapeutic currently on heparin drip. -Continue warfarin, INR goal between 23, will require IV heparin until INR is therapeutic. (3) Hypertension: Controlled. Plan as stated above. Admission and Anticipated Discharge Date Admission Date: December 13, 2020 Subjective Patient seen and examined, chart reviewed. States he is feeling better than presentation. Notes that breathing and lower extremity edema is improving. Did have a slight panic attack overnight. Denies chest pain or palpitations. Telemetry reviewed: Atrial fibrillation rate controlled. Review of Systems Review of Systems: All systems reviewed & are unremarkable except as noted in HPI & below Physical Exam Physical Exam: General: Awake, alert and oriented x 3. No acute distress. HEENT: Normocephalic, atraumatic. Pupils equal, round and reactive to light and accommodation. Extraocular muscles are intact. Anicteric sclera. Moist mucous membranes. Neck: No JVD. No bruit. Cardiovascular: irregularly irregular, unable to appreciate murmur, rub or gallop. Pulmonary: Clear to auscultation bilaterally. No rales, rhonchi, or wheezing. Abdomen: Bowel sounds x 4, soft. No rebound, guarding or tenderness. No organomegaly. Extremities: No clubbing, cyanosis. +2 bilateral lower extremity pitting edema. +2 pedal pulses bilaterally. Skin: Warm and dry. Chronic venous stasis changes of the lower extremities Results & Data ([facility]) Vital Signs (Past 12 Hours) Vital Signs Temp Pulse Pulse Resp BP BP Pulse Ox 12/15/20 12:26 36.5 C 86 18 110/66 94 12/15/20 11:20 88 18 122/84 92 12/15/20 08:42 89 12/15/20 08:08 36.4 C L 89 18 99/72 L 97 12/15/20 03:22 36.6 C 64 18 103/67 91 (1) Atrial fibrillation Atrial fibrillation type: longstanding persistent Qualified Code(s): I48.11 - Longstanding persistent atrial fibrillation (2) Hypertension Hypertension type: unspecified Qualified Code(s): I10 - Essential (primary) hypertension
[2020-12-15] MEDS: WARFARIN SOD 4 MG TAB PO SCH (17:04)
[2020-12-15] MEDS: HEPARIN SODIUM/DEXTROSE 25,000 UNITS/500 ML BAG IV SCH (18:22)
[2020-12-15] MEDS: TAMSULOSIN HCL 0.4 MG CAP PO SCH (20:26)
[2020-12-16] MEDS: ALPRAZolam 0.5 MG TABLET PO PRN ×2 (01:33→21:02)
[2020-12-16 06:18] LABS: INR 1.5 (0.9-1.1); Partial Thromboplastin Ratio 2.5; Prothrombin Time 14.9 Seconds (9.0-12.0)
[2020-12-16 06:19] LABS: Partial Thromboplastin Time 65.8 Seconds (21.0-31.0)
--- NOTE | 2020-12-16 06:22 | Electrocardiogram Report ---
Test Reason : Blood Pressure : / mmHG Vent. Rate : 081 BPM Atrial Rate : 241 BPM P-R Int : 000 ms QRS Dur : 110 ms QT Int : 410 ms P-R-T Axes : 000 036 224 degrees QTc Int : 476 ms Atrial fibrillation with premature ventricular or aberrantly conducted complexes Low voltage QRS Septal infarct (cited on or before 11-DEC-2019) T wave abnormality, consider anterolateral ischemia Abnormal ECG When compared with ECG of 14-DEC-2020 05:32, No significant change Confirmed by Sher Calderon ([id number]) on 12/16/2020 6:22:09 AM Referred By: REFERRED SELF Confirmed By:Sher Calderon
[2020-12-16 06:29] LABS: BUN Creatinine Ratio 21.7 (10-20); Calcium 8.8 mg/dl (8.5-10.1); Creatinine Clr Calc Pharmacy 56.3 ml/min; Est GFR (African American) 61.1 ml/min; Est GFR (Non-African American) 52.7 ml/min; Magnesium 2.1 mg/dl (1.8-2.4); Potassium 4.3 mmol/L (3.5-5.1)
[2020-12-16] MEDS: FOLIC ACID 1 MG in SYRINGE 9.8 ML IV SCH (08:05)
[2020-12-16] MEDS: THIAMINE HCL 100 MG in SYRINGE 9 ML IV SCH (08:05)
[2020-12-16] MEDS: FUROSEMIDE 40 MG in SYRINGE 0 ML IV SCH (08:05)
[2020-12-16] MEDS: METOPROLOL SUCC 25MG EXT REL TAB PO SCH (08:06)
[2020-12-16] MEDS: NICOTINE 21 MG/24 HR TDSY TD SCH (08:06)
[2020-12-16] MEDS: SIMVASTATIN 80 MG TAB PO SCH (08:06)
[2020-12-16] MEDS: lisinopril 5 MG TAB PO SCH (08:06)
[2020-12-16] MEDS: CEROVITE ADV FORMULA TAB PO SCH (08:06)
[2020-12-16] MEDS: INSULIN ASPART 100 UNITS/ML 3 ML PEN SC SCH ×4 (08:06→21:03)
--- NOTE | 2020-12-16 11:00 | Cardiology Progress Note ---
Date of Service December 16, 2020 Assessment & Plan (1) Atrial fibrillation: (2) CHF (congestive heart failure): (3) Acute on chronic heart failure with reduced ejection fraction and diastolic dysfunction: The patient admits that he has not been very compliant with follow-up and with his medications. He is going to double his efforts. He states that he no longer drinks alcohol. He is still smoking but is now determined to quit. I think he is out acute heart failure and I think we can switch him to oral furosemide. Admission and Anticipated Discharge Date Admission Date: December 13, 2020 Subjective No new cardiac complaints today. Review of Systems Review of Systems: All systems reviewed & are unremarkable except as noted in HPI & below Nothing additional to add. Physical Exam Physical Exam: General: no acute distress and stated age Head: normocephalic, no masses, lesions, tenderness or abnormalities Eyes: conjunctiva are pink and non-injected, sclera clear Neck: supple, no adenopathy, no bruits, normal jugular venous pulse, no hepatojugular reflux Chest: normal shape and normal respiratory effort Lungs: clear to auscultation and percussion Cardiac Exam: - regular rate & rhythm, no murmurs gallops or rubs - normal S1, normal S2 Pulses: 2(+) throughout Abdomen: abdomen soft, non-tender, no abnormal masses and no hepatosplenomegaly Musculoskeletal: no gait disturbance, no joint inflammation, no deforming arthritis Extremities: no edema and no cyanosis Neuro: grossly normal exam Results & Data ([facility]) Vital Signs (Past 12 Hours) Vital Signs Temp Pulse Pulse Pulse Resp BP BP 12/16/20 07:21 81 12/16/20 07:08 36.4 C L 89 18 108/78 12/16/20 03:10 36.6 C 78 18 105/67 12/16/20 00:33 88 Pulse Ox 12/16/20 07:21 12/16/20 07:08 95 12/16/20 03:10 91 12/16/20 00:33 Laboratory Results Laboratory Results - last 24 hr 12/15/20 12/15/20 12/15/20 11:25 16:23 20:11 PT INR APTT PTT Ratio Sodium Potassium Chloride Carbon Dioxide Anion Gap BUN Creatinine Est Cr Clr Drug Dosing Est GFR ( Amer) Est GFR (Non-Af Amer) BUN/Creatinine Ratio Glucose POC Glucose 157 H 129 H 119 H Calcium Magnesium 12/16/20 12/16/20 12/16/20 05:28 05:28 07:24 PT 14.9 H INR 1.5 H APTT 65.8 H* PTT Ratio 2.5 Sodium 135 L Potassium 4.3 Chloride 100 Carbon Dioxide 32 Anion Gap 3.0 BUN 29 H Creatinine 1.36 Est Cr Clr Drug Dosing 56.3 Est GFR ( Amer) 61.1 Est GFR (Non-Af Amer) 52.7 BUN/Creatinine Ratio 21.7 H Glucose 107 H POC Glucose 102 H Calcium 8.8 Magnesium 2.1 Medications Administered Current Inpatient Medications Acetaminophen (Acetaminophen 325 Mg Tab) 650 mg PO Q4H PRN PRN Reason: Pain or Fever Stop: 01/12/21 22:41 Alprazolam (Alprazolam 0.5 Mg Tablet) 1 mg PO TID PRN PRN Reason: Anxiety Stop: 01/13/21 06:39 Last Admin: 12/16/20 01:33 Dose: 1 mg Documented by: Dextrose (Dextrose 50% 50 Ml Syringe) 25 - 50 ml IV UD PRN; Protocol PRN Reason: Hypoglycemia Protocol Stop: 01/12/21 23:29 Gabapentin (Gabapentin 600 Mg Tab) 600 mg PO Q12H [facility] Stop: 12/16/20 12:01 Last Admin: 12/15/20 23:04 Dose: 600 mg Documented by: Gabapentin (Gabapentin 600 Mg Tab) 600 mg PO Q24H [facility] Stop: 12/17/20 12:01 Glucagon (Glucagon For Inj 1 Mg Vial) 1 mg IM UD PRN; Protocol PRN Reason: Hypoglycemia Protocol Stop: 01/12/21 23:29 Glucose (Glucose 40% Gel 15 Gm Tube) 15 - 30 gm PO UD PRN; Protocol PRN Reason: Hypoglycemia Protocol Stop: 01/12/21 23:29 Glucose (Glucose 10 Tabs/Tube) 4 - 8 tabs PO UD PRN; Protocol PRN Reason: Hypoglycemia Protocol Stop: 01/12/21 23:29 Thiamine HCl 100 mg/ Syringe 10 mls @ 2 mls/min IV QAM [facility] Stop: 01/12/21 22:41 Last Admin: 12/16/20 08:05 Dose: 2 mls/min Documented by: Folic Acid 1 mg/ Syringe 10 mls @ 5 mls/min IV QAM [facility] Stop: 01/12/21 22:41 Last Admin: 12/16/20 08:05 Dose: 5 mls/min Documented by: Heparin Sodium/Dextrose (Heparin Sodium/Dextrose) 25,000 units in 500 mls @ 24 mls/hr IV .[id number] [facility]; Protocol Stop: 01/12/21 22:41 Last Titration: 12/16/20 07:17 Dose: 1,200 units/hr, 24 mls/hr Documented by: Furosemide 40 mg/ Syringe 4 mls @ 4 mls/min IV BID17 [facility] Stop: 01/13/21 08:59 Last Admin: 12/16/20 08:05 Dose: 4 mls/min Documented by: Insulin Aspart (Insulin Aspart 100 Units/Ml 3 Ml Pen) 0 units SC ACHS [facility] Stop: 01/13/21 07:29 Last Admin: 12/16/20 08:06 Dose: 2 units Documented by: Levalbuterol HCl (Levalbuterol Hcl 1.25 Mg/3 Ml Neb) 1.25 mg NEB Q4H PRN PRN Reason: Shortness Of Breath Or Wheezing Stop: 01/12/21 23:14 Lisinopril (Lisinopril 5 Mg Tab) 5 mg PO DAILY [facility] Stop: 01/13/21 08:59 Last Admin: 12/16/20 08:06 Dose: 5 mg Documented by: Lorazepam (Lorazepam 1 Mg Tab) 1 - 3 mg PO UD PRN; Protocol PRN Reason: EtoH Withdrawal AWSS 6-10+ Stop: 01/12/21 22:41 Metoprolol Succinate (Metoprolol Succ 25mg Ext Rel Tab) [facility] [place] Stop: 01/13/21 13:59 Last Admin: 12/16/20 08:06 Dose: 25 mg Documented by: Miscellaneous (Remove Nicoderm Patch) 1 ea N/A DAILY@0859 [facility] Stop: 01/13/21 08:58 Last Admin: 12/16/20 08:06 Dose: 1 ea Documented by: Miscellaneous (Carbohydrates For Hypoglycemia ) 15 - 30 gm PO UD PRN PRN Reason: Hypoglycemia Treatment Stop: 01/12/21 23:29 Multivitamins/Minerals (Cerovite Adv Formula Tab) [facility] [place] Stop: 01/13/21 08:59 Last Admin: 12/16/20 08:06 Dose: 1 tab Documented by: Nicotine (Nicotine 21 Mg/24 Hr Tdsy) 21 mg TD DAILY [facility] Stop: 01/12/21 22:41 Last Admin: 12/16/20 08:06 Dose: 21 mg Documented by: Nitroglycerin (Nitroglycerin Sl 0.4 Mg/Tab Tab) 0.4 mg SL UD PRN PRN Reason: Chest Pain Stop: 01/12/21 22:41 Polyethylene Glycol (Polyethylene (Miralax) 17 Gm Pack) 17 gm PO DAILY PRN PRN Reason: Constipation Stop: 01/12/21 22:41 Simvastatin (Simvastatin 80 Mg Tab) 80 mg PO DAILY [facility] Stop: 01/13/21 08:59 Last Admin: 12/16/20 08:06 Dose: 80 mg Documented by: Tamsulosin HCl (Tamsulosin Hcl 0.4 Mg Cap) 0.4 mg PO HS [facility] Stop: 01/13/21 20:59 Last Admin: 12/15/20 20:26 Dose: 0.4 mg Documented by: Warfarin Sodium (Warfarin Sod 4 Mg Tab) 4 mg PO DAILY@1600 [facility] Stop: 01/14/21 15:59 Last Admin: 12/15/20 17:04 Dose: 4 mg Documented by: (1) CHF (congestive heart failure) Heart failure chronicity: acute Heart failure type: unspecified Qualified Code(s): I50.9 - Heart failure, unspecified (2) Atrial fibrillation Atrial fibrillation type: longstanding persistent Qualified Code(s): I48.11 - Longstanding persistent atrial fibrillation
[2020-12-16] MEDS: GABAPENTIN 600 MG TAB PO SCH (11:47)
--- NOTE | 2020-12-16 13:40 | Hospitalist Progress Note ---
Date of Service December 16, 2020 Assessment & Plan (1) CHF (congestive heart failure): This is a 70-year-old male, who presents with worsening lower extremity edema and found to be in [id number] systolic congestive heart failure. 1. Oajqk-hl-[id number] systolic congestive heart failure, last ejection fraction was around 20%. Previously declined ICD, now considering it. Received IV Lasix 40 mg in the ER. Continued on Iv lasix 40 bid, now switched to PO lasix 40 BID Continued home Coreg on admission initially. Switched to metoprolol succinate per cardiology. Daily weights, I's and O's. Echocardiogram - moderately dilated LV chamber size with global wall thinning. Severely reduced LV systolic function with severe global hypokinesis, EF less than 15%. Grade 3 diastolic dysfunction consistent with restrictive physiology. Dilated RV chamber size with reduced systolic function. Dilated mitral annulus with poor leaflet coaptation. Moderate mitral regurg with a centrally directed jet. Moderate tricuspid regurg. Severe biatrial enlargement. Compared to previous study of January 2020, LV systolic function has further declined. RV systolic failure is now present. Cardiology consulted. Cont. to monitor in the tele floor. 2. History of diabetes: Holding metformin and glipizide. Placed on insulin sliding scale. Current HbA1c 7.2% Follow the blood sugars while inpt. 3. Hyperlipidemia: Continue statin. 4. History of atrial fibrillation: On Coreg at home, now switched to metoprolol. Currently on Coumadin 2.5 mg p.o. daily. Increased to 4mg daily. He says this has been cut in half because of his easy bruising . O admission INR 1.3 Today, his INR is 1.4 He was given 2.5 of Coumadin on admission and placed on IV heparin low dose bridging and follow PT/INR and adjust the Coumadin dosing. 5. Hypertension: Continued his Coreg and lisinopril initially. Now on metoprolol, lisinopril. Monitor the blood pressure. 6. History of alcoholism: He says he is currently drinking only 7 beers a week and one shot of vodka a week. Placed him on gabapentin protocol and Ativan p.r.n. Continue his home alprazolam p.o. t.i.d. p.r.n. 7. History of ongoing tobacco abuse: Nicotine patch. 8. History of possible chronic obstructive pulmonary disease: Will place on nebs p.r.n. 9. Urinary retention: Currently status post Ravi. Consulted urology for further recommendations. PSA ordered - 2.8 Will need Ravi for 10-14 days, follow up w/ urology as outpt. 10. History of lung nodule, 5 mm, left upper lobe, in the last admission. Needs to follow up with a CT chest. 11. History of [employer] exposure as per the patient. Disposition: Admit to tele floor. PT, OT prior to discharge. Social service to help with discharge planning. Follow up with cardiology, urology and PCP. Admission and Anticipated Discharge Date Admission Date: December 13, 2020 Subjective Patient seen in follow-up of CHF exacerbation, urinary retention Currently he is sitting up in bed, in no acute distress, however says he occasionally "feels panicky" especially in the evening Ravi catheter was placed in the ER, and draining the urine Patient says that he feels better, breathing better since admission, denies any chest pain or palpitations Review of Systems Review of Systems: All systems reviewed & are unremarkable except as noted in HPI & below Constitutional: no fever and no chills Respiratory: + dyspnea (improved) Cardiovascular: + edema (improved); no chest pain and no palpitations Gastrointestinal: no abdominal pain, no nausea and no vomiting Physical Exam Physical Exam: GENERAL: The patient is of moderate build, not in acute distress. HEENT: NC/AT, EOMI, Pupils equal, round and reactive to light. Oral mucosa moist. NECK: No JVD, no neck masses. CARDIOVASCULAR: S1 and S2 heard. Regular rate and rhythm. + syst. murmur RESPIRATORY: Normal AP diameter. No accessory muscle use. no wheezing. no crackles ABDOMEN: Soft, bowel sounds present. Ventral hernia seen in the umbilical reg ion. No guarding, no rigidity. NEURO: Alert and oriented x3 and answering questions appropriately. No facial asymmetry, speech fluent, moves extremities EXTREMITIES: 1-2+ Bilateral lower extremity edema (improved). Mild erythema seen. Results & Data Results & Data ([facility]) Vital Signs (Past 12 Hours) Vital Signs Temp Pulse Pulse Pulse Resp BP BP 12/16/20 12:03 36.3 C L 76 16 113/79 12/16/20 07:21 81 12/16/20 07:08 36.4 C L 89 18 108/78 12/16/20 03:10 36.6 C 78 18 105/67 Pulse Ox 12/16/20 12:03 93 12/16/20 07:21 12/16/20 07:08 95 12/16/20 03:10 91 Laboratory Results 12/16/20 12/16/20 12/16/20 Range/Units 11:09 07:24 05:28 PT (9.0-12.0) Seconds INR (0.9-1.1) APTT (21.0-31.0) Seconds PTT Ratio Sodium 135 L (136-145) mmol/L Potassium 4.3 (3.5-5.1) mmol/L Chloride 100 (98-107) mmol/L Carbon Dioxide 32 (21-32) mmol/L Anion Gap 3.0 (3-11) BUN 29 H (7-18) mg/dl Creatinine 1.36 (0.6-1.4) mg/dl Est Cr Clr Drug Dosing 56.3 ml/min Est GFR ( Amer) 61.1 ml/min Est GFR (Non-Af Amer) 52.7 ml/min BUN/Creatinine Ratio 21.7 H (10-20) Glucose 107 H (70-99) mg/dl POC Glucose 133 H 102 H (70-99) mg/dl Calcium 8.8 (8.5-10.1) mg/dl Magnesium 2.1 (1.8-2.4) mg/dl 12/16/20 12/15/20 12/15/20 Range/Units 05:28 20:11 16:23 PT 14.9 H (9.0-12.0) Seconds INR 1.5 H (0.9-1.1) APTT 65.8 H* (21.0-31.0) Seconds PTT Ratio 2.5 Sodium (136-145) mmol/L Potassium (3.5-5.1) mmol/L Chloride (98-107) mmol/L Carbon Dioxide (21-32) mmol/L Anion Gap (3-11) BUN (7-18) mg/dl Creatinine (0.6-1.4) mg/dl Est Cr Clr Drug Dosing ml/min Est GFR ( Amer) ml/min Est GFR (Non-Af Amer) ml/min BUN/Creatinine Ratio (10-20) Glucose (70-99) mg/dl POC Glucose 119 H 129 H (70-99) mg/dl Calcium (8.5-10.1) mg/dl Magnesium (1.8-2.4) mg/dl Medications Administered Current Inpatient Medications Acetaminophen (Acetaminophen 325 Mg Tab) 650 mg PO Q4H PRN PRN Reason: Pain or Fever Stop: 01/12/21 22:41 Alprazolam (Alprazolam 0.5 Mg Tablet) 1 mg PO TID PRN PRN Reason: Anxiety Stop: 01/13/21 06:39 Last Admin: 12/16/20 01:33 Dose: 1 mg Documented by: Dextrose (Dextrose 50% 50 Ml Syringe) 25 - 50 ml IV UD PRN; Protocol PRN Reason: Hypoglycemia Protocol Stop: 01/12/21 23:29 Furosemide (Furosemide 40 Mg Tab) 40 mg PO [id number] [facility] Stop: 01/15/21 16:59 Gabapentin (Gabapentin 600 Mg Tab) 600 mg PO Q24H [facility] Stop: 12/17/20 12:01 Glucagon (Glucagon For Inj 1 Mg Vial) 1 mg IM UD PRN; Protocol PRN Reason: Hypoglycemia Protocol Stop: 01/12/21 23:29 Glucose (Glucose 40% Gel 15 Gm Tube) 15 - 30 gm PO UD PRN; Protocol PRN Reason: Hypoglycemia Protocol Stop: 01/12/21 23:29 Glucose (Glucose 10 Tabs/Tube) 4 - 8 tabs PO UD PRN; Protocol PRN Reason: Hypoglycemia Protocol Stop: 01/12/21 23:29 Thiamine HCl 100 mg/ Syringe 10 mls @ 2 mls/min IV QAM [facility] Stop: 01/12/21 22:41 Last Admin: 12/16/20 08:05 Dose: 2 mls/min Documented by: Folic Acid 1 mg/ Syringe 10 mls @ 5 mls/min IV QAM [facility] Stop: 01/12/21 22:41 Last Admin: 12/16/20 08:05 Dose: 5 mls/min Documented by: Heparin Sodium/Dextrose (Heparin Sodium/Dextrose) 25,000 units in 500 mls @ 24 mls/hr IV .[id number]; Protocol Stop: 01/12/21 22:41 Last Titration: 12/16/20 07:17 Dose: 1,200 units/hr, 24 mls/hr Documented by: Insulin Aspart (Insulin Aspart 100 Units/Ml 3 Ml Pen) 0 units SC ACHS [facility] Stop: 01/13/21 07:29 Last Admin: 12/16/20 11:45 Dose: 3 units Documented by: Levalbuterol HCl (Levalbuterol Hcl 1.25 Mg/3 Ml Neb) 1.25 mg NEB Q4H PRN PRN Reason: Shortness Of Breath Or Wheezing Stop: 01/12/21 23:14 Lisinopril (Lisinopril 5 Mg Tab) 5 mg PO DAILY [facility] Stop: 01/13/21 08:59 Last Admin: 12/16/20 08:06 Dose: 5 mg Documented by: Lorazepam (Lorazepam 1 Mg Tab) 1 - 3 mg PO UD PRN; Protocol PRN Reason: EtoH Withdrawal AWSS 6-10+ Stop: 01/12/21 22:41 Melatonin (Melatonin 3 Mg Tab) 3 mg PO HS [facility] Stop: 01/15/21 20:59 Metoprolol Succinate (Metoprolol Succ 25mg Ext Rel Tab) 25 mg PO QAM [facility] Stop: 01/13/21 13:59 Last Admin: 12/16/20 08:06 Dose: 25 mg Documented by: Miscellaneous (Remove Nicoderm Patch) 1 ea N/A DAILY@0859 [facility] Stop: 01/13/21 08:58 Last Admin: 12/16/20 08:06 Dose: 1 ea Documented by: Miscellaneous (Carbohydrates For Hypoglycemia ) 15 - 30 gm PO UD PRN PRN Reason: Hypoglycemia Treatment Stop: 01/12/21 23:29 Multivitamins/Minerals (Cerovite Adv Formula Tab) 1 tab PO QAM [facility] Stop: 01/13/21 08:59 Last Admin: 12/16/20 08:06 Dose: 1 tab Documented by: Nicotine (Nicotine 21 Mg/24 Hr Tdsy) 21 mg TD DAILY [facility] Stop: 01/12/21 22:41 Last Admin: 12/16/20 08:06 Dose: 21 mg Documented by: Nitroglycerin (Nitroglycerin Sl 0.4 Mg/Tab Tab) 0.4 mg SL UD PRN PRN Reason: Chest Pain Stop: 01/12/21 22:41 Polyethylene Glycol (Polyethylene (Miralax) 17 Gm Pack) 17 gm PO DAILY PRN PRN Reason: Constipation Stop: 01/12/21 22:41 Simvastatin (Simvastatin 80 Mg Tab) 80 mg PO DAILY [facility] Stop: 01/13/21 08:59 Last Admin: 12/16/20 08:06 Dose: 80 mg Documented by: Tamsulosin HCl (Tamsulosin Hcl 0.4 Mg Cap) 0.4 mg PO HS [facility] Stop: 01/13/21 20:59 Last Admin: 12/15/20 20:26 Dose: 0.4 mg Documented by: Warfarin Sodium (Warfarin Sod 4 Mg Tab) 4 mg PO DAILY@1600 [facility] Stop: 01/14/21 15:59 Last Admin: 12/15/20 17:04 Dose: 4 mg Documented by: (1) CHF (congestive heart failure) Heart failure chronicity: acute Heart failure type: unspecified Qualified Code(s): I50.9 - Heart failure, unspecified
[2020-12-16] MEDS: HEPARIN SODIUM/DEXTROSE 25,000 UNITS/500 ML BAG IV SCH (15:11)
[2020-12-16] MEDS: WARFARIN SOD 4 MG TAB PO SCH (16:15)
[2020-12-16] MEDS: FUROSEMIDE 40 MG TAB PO SCH (17:06)
[2020-12-16] MEDS: MELATONIN 3 MG TAB PO SCH (21:04)
[2020-12-16] MEDS: TAMSULOSIN HCL 0.4 MG CAP PO SCH (21:04)
[2020-12-17 07:53] LABS: BUN Creatinine Ratio 23.2 (10-20); Calcium 9.3 mg/dl (8.5-10.1); Creatinine Clr Calc Pharmacy 64.4 ml/min; Est GFR (African American) 65.1 ml/min; Est GFR (Non-African American) 56.2 ml/min; Magnesium 2.2 mg/dl (1.8-2.4); Partial Thromboplastin Ratio 2.5; Partial Thromboplastin Time 65.5 Seconds (21.0-31.0); Potassium 4.6 mmol/L (3.5-5.1)
[2020-12-17 08:16] LABS: INR 1.6 (0.9-1.1); Prothrombin Time 15.5 Seconds (9.0-12.0)
[2020-12-17] MEDS: FOLIC ACID 1 MG in SYRINGE 9.8 ML IV SCH (09:04)
[2020-12-17] MEDS: THIAMINE HCL 100 MG in SYRINGE 9 ML IV SCH (09:04)
[2020-12-17] MEDS: SIMVASTATIN 80 MG TAB PO SCH (09:04)
[2020-12-17] MEDS: CEROVITE ADV FORMULA TAB PO SCH (09:04)
[2020-12-17] MEDS: FUROSEMIDE 40 MG TAB PO SCH ×2 (09:05→16:56)
[2020-12-17] MEDS: lisinopril 5 MG TAB PO SCH (09:05)
[2020-12-17] MEDS: INSULIN ASPART 100 UNITS/ML 3 ML PEN SC SCH ×4 (09:05→20:21)
[2020-12-17] MEDS: NICOTINE 21 MG/24 HR TDSY TD SCH (09:05)
[2020-12-17] MEDS: METOPROLOL SUCC 25MG EXT REL TAB PO SCH (09:18)
--- NOTE | 2020-12-17 11:15 | Cardiology Progress Note ---
Date of Service December 17, 2020 Assessment & Plan (1) Atrial fibrillation: (2) CHF (congestive heart failure): (3) Acute on chronic heart failure with reduced ejection fraction and diastolic dysfunction: The patient is clinically stable. He is not quite therapeutic on his warfarin and therefore I would continue IV heparin. As mentioned, the patient has been experiencing some brain fog after taking the gabapentin. I do not believe that there is an indication for this medication as he is not currently an active alcohol drinker. In the past he has been offered an ICD and refused. He has also in the past had problems with compliance. He tells me today that he is willing to undergo the ICD. I do not know that it should be put in during this admission. He is going to have a Ravi catheter in place for at least a couple weeks due to urine retention. This is a likely source of infection with a new implant. Also he is just recently been restarted on guideline directed medications. I doubt that restarting the medications will change his ejection fraction significantly, but I think that he should be at least on a stable group of medications and compliant prior to considering an ICD. Admission and Anticipated Discharge Date Admission Date: December 13, 2020 Subjective The patient had an uneventful night. He is complaining about the gabapentin causing some brain fog. I believe the patient was started on this medication for alcohol withdrawal but he is not currently consuming alcohol and his confirms. Review of Systems Review of Systems: All systems reviewed & are unremarkable except as noted in Subjective Physical Exam Physical Exam: General: no acute distress and stated age Head: normocephalic, no masses, lesions, tenderness or abnormalities Eyes: conjunctiva are pink and non-injected, sclera clear Neck: supple, no adenopathy, no bruits, normal jugular venous pulse, no hepatojugular reflux Chest: normal shape and normal respiratory effort Lungs: clear to auscultation and percussion Cardiac Exam: - irregular rate & rhythm, no murmurs gallops or rubs - normal S1, normal S2 Pulses: 2(+) throughout Abdomen: abdomen soft, non-tender, no abnormal masses and no hepatosplenomegaly Musculoskeletal: no gait disturbance, no joint inflammation, no deforming arthritis Extremities: no edema and no cyanosis Neuro: grossly normal exam Results & Data ([facility]) Vital Signs (Past 12 Hours) Vital Signs Temp Pulse Pulse Resp BP Pulse Ox 12/17/20 08:06 36.8 C 83 18 99/60 L 99 12/17/20 07:53 84 12/17/20 04:15 36.6 C 83 16 95/71 L 95 12/17/20 00:04 87 12/16/20 23:29 36.8 C 70 16 112/71 93 Laboratory Results Laboratory Results - last 24 hr 12/16/20 12/16/20 12/16/20 11:09 16:33 20:39 PT INR APTT PTT Ratio Sodium Potassium Chloride Carbon Dioxide Anion Gap BUN Creatinine Est Cr Clr Drug Dosing Est GFR ( Amer) Est GFR (Non-Af Amer) BUN/Creatinine Ratio Glucose POC Glucose 133 H 113 H 167 H Calcium Magnesium 12/17/20 12/17/20 12/17/20 07:11 07:11 07:11 PT 15.5 H INR 1.6 H APTT 65.5 H* PTT Ratio 2.5 Sodium 134 L Potassium 4.6 Chloride 99 Carbon Dioxide 32 Anion Gap 3.0 BUN 30 H Creatinine 1.29 Est Cr Clr Drug Dosing 64.4 Est GFR ( Amer) 65.1 Est GFR (Non-Af Amer) 56.2 BUN/Creatinine Ratio 23.2 H Glucose 120 H POC Glucose Calcium 9.3 Magnesium 2.2 12/17/20 07:18 PT INR APTT PTT Ratio Sodium Potassium Chloride Carbon Dioxide Anion Gap BUN Creatinine Est Cr Clr Drug Dosing Est GFR ( Amer) Est GFR (Non-Af Amer) BUN/Creatinine Ratio Glucose POC Glucose 132 H Calcium Magnesium Medications Administered Current Inpatient Medications Acetaminophen (Acetaminophen 325 Mg Tab) 650 mg PO Q4H PRN PRN Reason: Pain or Fever Stop: 01/12/21 22:41 Alprazolam (Alprazolam 0.5 Mg Tablet) 1 mg PO TID PRN PRN Reason: Anxiety Stop: 01/13/21 06:39 Last Admin: 12/16/20 21:02 Dose: 1 mg Documented by: Dextrose (Dextrose 50% 50 Ml Syringe) 25 - 50 ml IV UD PRN; Protocol PRN Reason: Hypoglycemia Protocol Stop: 01/12/21 23:29 Furosemide (Furosemide 40 Mg Tab) 40 mg PO [id number] [facility] Stop: 01/15/21 16:59 Last Admin: 12/17/20 09:05 Dose: 40 mg Documented by: Gabapentin (Gabapentin 600 Mg Tab) 600 mg PO Q24H [facility] Stop: 12/17/20 12:01 Glucagon (Glucagon For Inj 1 Mg Vial) 1 mg IM UD PRN; Protocol PRN Reason: Hypoglycemia Protocol Stop: 01/12/21 23:29 Glucose (Glucose 40% Gel 15 Gm Tube) 15 - 30 gm PO UD PRN; Protocol PRN Reason: Hypoglycemia Protocol Stop: 01/12/21 23:29 Glucose (Glucose 10 Tabs/Tube) 4 - 8 tabs PO UD PRN; Protocol PRN Reason: Hypoglycemia Protocol Stop: 01/12/21 23:29 Thiamine HCl 100 mg/ Syringe 10 mls @ 2 mls/min IV QAM [facility] Stop: 01/12/21 22:41 Last Admin: 12/17/20 09:04 Dose: 2 mls/min Documented by: Folic Acid 1 mg/ Syringe 10 mls @ 5 mls/min IV QAM [facility] Stop: 01/12/21 22:41 Last Admin: 12/17/20 09:04 Dose: 5 mls/min Documented by: Heparin Sodium/Dextrose (Heparin Sodium/Dextrose) 25,000 units in 500 mls @ 24 mls/hr IV .[id number] [facility]; Protocol Stop: 01/12/21 22:41 Last Titration: 12/17/20 06:58 Dose: 1,200 units/hr, 24 mls/hr Documented by: Insulin Aspart (Insulin Aspart 100 Units/Ml 3 Ml Pen) 0 units SC ACHS [facility] Stop: 01/13/21 07:29 Last Admin: 12/17/20 09:05 Dose: 3 units Documented by: Levalbuterol HCl (Levalbuterol Hcl 1.25 Mg/3 Ml Neb) 1.25 mg NEB Q4H PRN PRN Reason: Shortness Of Breath Or Wheezing Stop: 01/12/21 23:14 Lisinopril (Lisinopril 5 Mg Tab) 5 mg PO DAILY [facility] Stop: 01/13/21 08:59 Last Admin: 12/17/20 09:05 Dose: 5 mg Documented by: Lorazepam (Lorazepam 1 Mg Tab) 1 - 3 mg PO UD PRN; Protocol PRN Reason: EtoH Withdrawal AWSS 6-10+ Stop: 01/12/21 22:41 Melatonin (Melatonin 3 Mg Tab) 3 mg PO HS [facility] Stop: 01/15/21 20:59 Last Admin: 12/16/20 21:04 Dose: 3 mg Documented by: Metoprolol Succinate (Metoprolol Succ 25mg Ext Rel Tab) 25 mg PO QAM [facility] Stop: 01/13/21 13:59 Last Admin: 12/17/20 09:18 Dose: Not Given Documented by: Miscellaneous (Remove Nicoderm Patch) 1 ea N/A DAILY@0859 [facility] Stop: 01/13/21 08:58 Last Admin: 12/17/20 09:08 Dose: 1 ea Documented by: Miscellaneous (Carbohydrates For Hypoglycemia ) 15 - 30 gm PO UD PRN PRN Reason: Hypoglycemia Treatment Stop: 01/12/21 23:29 Multivitamins/Minerals (Cerovite Adv Formula Tab) 1 tab PO QAM [facility] Stop: 01/13/21 08:59 Last Admin: 12/17/20 09:04 Dose: 1 tab Documented by: Nicotine (Nicotine 21 Mg/24 Hr Tdsy) 21 mg TD DAILY [facility] Stop: 01/12/21 22:41 Last Admin: 12/17/20 09:05 Dose: 21 mg Documented by: Nitroglycerin (Nitroglycerin Sl 0.4 Mg/Tab Tab) 0.4 mg SL UD PRN PRN Reason: Chest Pain Stop: 01/12/21 22:41 Polyethylene Glycol (Polyethylene (Miralax) 17 Gm Pack) 17 gm PO DAILY PRN PRN Reason: Constipation Stop: 01/12/21 22:41 Simvastatin (Simvastatin 80 Mg Tab) 80 mg PO DAILY [facility] Stop: 01/13/21 08:59 Last Admin: 12/17/20 09:04 Dose: 80 mg Documented by: Tamsulosin HCl (Tamsulosin Hcl 0.4 Mg Cap) 0.4 mg PO HS [facility] Stop: 01/13/21 20:59 Last Admin: 12/16/20 21:04 Dose: 0.4 mg Documented by: Warfarin Sodium (Warfarin Sod 5 Mg Tab) 5 mg PO DAILY@1600 [facility] Stop: 01/16/21 15:59 (1) CHF (congestive heart failure) Heart failure chronicity: acute Heart failure type: unspecified Qualified Code(s): I50.9 - Heart failure, unspecified (2) Atrial fibrillation Atrial fibrillation type: longstanding persistent Qualified Code(s): I48.11 - Longstanding persistent atrial fibrillation
--- NOTE | 2020-12-17 11:30 | Hospitalist Progress Note ---
Date of Service December 17, 2020 Assessment & Plan (1) CHF (congestive heart failure): This is a 70-year-old male, who presents with worsening lower extremity edema and found to be in cowgr-vh-lwsbboc systolic congestive heart failure. 1. Mhwxc-ov-kmflvbh systolic congestive heart failure, last ejection fraction was around 20%. Previously declined ICD, now considering it. Received IV Lasix 40 mg in the ER. Continued on Iv lasix 40 bid, now switched to PO lasix 40 BID Continued home Coreg on admission initially. Switched to metoprolol succinate per cardiology. Daily weights, I's and O's. Echocardiogram - moderately dilated LV chamber size with global wall thinning. Severely reduced LV systolic function with severe global hypokinesis, EF less than 15%. Grade 3 diastolic dysfunction consistent with restrictive physiology. Dilated RV chamber size with reduced systolic function. Dilated mitral annulus with poor leaflet coaptation. Moderate mitral regurg with a centrally directed jet. Moderate tricuspid regurg. Severe biatrial enlargement. Compared to previous study of January 2020, LV systolic function has further declined. RV systolic failure is now present. Cardiology consulted. Cont. to monitor in the tele floor. 2. History of diabetes: Holding metformin and glipizide. Placed on insulin sliding scale. Current HbA1c 7.2% Follow the blood sugars while inpt. 3. Hyperlipidemia: Continue statin. 4. History of atrial fibrillation: On Coreg at home, now switched to metoprolol. Currently on Coumadin 2.5 mg p.o. daily. Increased to 4mg daily. He says this has been cut in half because of his easy bruising . O admission INR 1.3 Today, his INR is 1.6 He was given 2.5 of Coumadin on admission and placed on IV heparin low dose bridging and follow PT/INR and adjust the Coumadin dosing. 5. Hypertension: Continued his Coreg and lisinopril initially. Now on metoprolol, lisinopril. Monitor the blood pressure. 6. History of alcoholism: He says he is currently drinking only 7 beers a week and one shot of vodka a week. Placed him on gabapentin protocol and Ativan p.r.n. Continue his home alprazolam p.o. t.i.d. p.r.n. Reports feeling foggy after taking gabapentin, will discontinue now 7. History of ongoing tobacco abuse: Nicotine patch. 8. History of possible chronic obstructive pulmonary disease: Will place on nebs p.r.n. 9. Urinary retention: Currently status post Ravi. Consulted urology for further recommendations. PSA ordered - 2.8 Will need Ravi for 10-14 days, follow up w/ urology as outpt. 10. History of lung nodule, 5 mm, left upper lobe, in the last admission. Needs to follow up with a CT chest. 11. History of [place] exposure as per the patient. Disposition: Admit to tele floor. PT, OT prior to discharge. Social service to help with discharge planning. Follow up with cardiology, urology and PCP. Admission and Anticipated Discharge Date Admission Date: December 13, 2020 Subjective Patient seen in follow-up of CHF exacerbation, urinary retention Currently he is sitting up in bed, in no acute distress Reports feeling foggy after taking gabapentin, will discontinue Ravi catheter was placed in the ER, and draining the urine Patient says that he feels better, breathing better since admission, denies any chest pain or palpitations Review of Systems Review of Systems: All systems reviewed & are unremarkable except as noted in HPI & below Constitutional: no fever and no chills Respiratory: no cough and no dyspnea Cardiovascular: + edema (improved); no chest pain and no palpitations Gastrointestinal: no abdominal pain, no nausea and no vomiting Physical Exam Physical Exam: GENERAL: The patient is of moderate build, not in acute distress. HEENT: NC/AT, EOMI, Pupils equal, round and reactive to light. Oral mucosa moist. NECK: No JVD, no neck masses. CARDIOVASCULAR: S1 and S2 heard. Regular rate and rhythm. + syst. murmur RESPIRATORY: Normal AP diameter. No accessory muscle use. no wheezing. no cr ackles ABDOMEN: Soft, bowel sounds present. Ventral hernia seen in the umbilical region. No guarding, no rigidity. NEURO: Alert and oriented x3 and answering questions appropriately. No facial asymmetry, speech fluent, moves extremities EXTREMITIES: 1+ Bilateral lower extremity edema (improved). Mild erythema seen. Results & Data Results & Data ([facility]) Vital Signs (Past 12 Hours) Vital Signs Temp Pulse Pulse Resp BP Pulse Ox 12/17/20 08:06 36.8 C 83 18 99/60 L 99 12/17/20 07:53 84 12/17/20 04:15 36.6 C 83 16 95/71 L 95 12/17/20 00:04 87 12/16/20 23:29 36.8 C 70 16 112/71 93 Laboratory Results 12/17/20 12/17/20 12/17/20 Range/Units : 07:18 07:11 PT 15.5 H (9.0-12.0) Seconds INR 1.6 H (0.9-1.1) APTT (21.0-31.0) Seconds PTT Ratio Sodium (136-145) mmol/L Potassium (3.5-5.1) mmol/L Chloride (98-107) mmol/L Carbon Dioxide (21-32) mmol/L Anion Gap (3-11) BUN (7-18) mg/dl Creatinine (0.6-1.4) mg/dl Est Cr Clr Drug Dosing ml/min Est GFR ( Amer) ml/min Est GFR (Non-Af Amer) ml/min BUN/Creatinine Ratio (10-20) Glucose (70-99) mg/dl POC Glucose 128 H 132 H (70-99) mg/dl Calcium (8.5-10.1) mg/dl Magnesium (1.8-2.4) mg/dl 12/17/20 12/17/20 12/16/20 Range/Units 07: 07:11 20:39 PT (9.0-12.0) Seconds INR (0.9-1.1) APTT 65.5 H* (21.0-31.0) Seconds PTT Ratio 2.5 Sodium 134 L (136-145) mmol/L Potassium 4.6 (3.5-5.1) mmol/L Chloride 99 (98-107) mmol/L Carbon Dioxide 32 (21-32) mmol/L Anion Gap 3.0 (3-11) BUN 30 H (7-18) mg/dl Creatinine 1.29 (0.6-1.4) mg/dl Est Cr Clr Drug Dosing 64.4 ml/min Est GFR ( Amer) 65.1 ml/min Est GFR (Non-Af Amer) 56.2 ml/min BUN/Creatinine Ratio 23.2 H (10-20) Glucose 120 H (70-99) mg/dl POC Glucose 167 H (70-99) mg/dl Calcium 9.3 (8.5-10.1) mg/dl Magnesium 2.2 (1.8-2.4) mg/dl 12/16/20 Range/Units 16:33 PT (9.0-12.0) Seconds INR (0.9-1.1) APTT (21.0-31.0) Seconds PTT Ratio Sodium (136-145) mmol/L Potassium (3.5-5.1) mmol/L Chloride (98-107) mmol/L Carbon Dioxide (21-32) mmol/L Anion Gap (3-11) BUN (7-18) mg/dl Creatinine (0.6-1.4) mg/dl Est Cr Clr Drug Dosing ml/min Est GFR ( Amer) ml/min Est GFR (Non-Af Amer) ml/min BUN/Creatinine Ratio (10-20) Glucose (70-99) mg/dl POC Glucose 113 H (70-99) mg/dl Calcium (8.5-10.1) mg/dl Magnesium (1.8-2.4) mg/dl Medications Administered Current Inpatient Medications Acetaminophen (Acetaminophen 325 Mg Tab) 650 mg PO Q4H PRN PRN Reason: Pain or Fever Stop: 01/12/21 22:41 Alprazolam (Alprazolam 0.5 Mg Tablet) 1 mg PO TID PRN PRN Reason: Anxiety Stop: 01/13/21 06:39 Last Admin: 12/16/20 21:02 Dose: 1 mg Documented by: Dextrose (Dextrose 50% 50 Ml Syringe) 25 - 50 ml IV UD PRN; Protocol PRN Reason: Hypoglycemia Protocol Stop: 01/12/21 23:29 Furosemide (Furosemide 40 Mg Tab) 40 mg PO [id number] [facility] Stop: 01/15/21 16:59 Last Admin: 12/17/20 09:05 Dose: 40 mg Documented by: Glucagon (Glucagon For Inj 1 Mg Vial) 1 mg IM UD PRN; Protocol PRN Reason: Hypoglycemia Protocol Stop: 01/12/21 23:29 Glucose (Glucose 40% Gel 15 Gm Tube) 15 - 30 gm PO UD PRN; Protocol PRN Reason: Hypoglycemia Protocol Stop: 01/12/21 23:29 Glucose (Glucose 10 Tabs/Tube) 4 - 8 tabs PO UD PRN; Protocol PRN Reason: Hypoglycemia Protocol Stop: 01/12/21 23:29 Thiamine HCl 100 mg/ Syringe 10 mls @ 2 mls/min IV QAM [facility] Stop: 01/12/21 22:41 Last Admin: 12/17/20 09:04 Dose: 2 mls/min Documented by: Folic Acid 1 mg/ Syringe 10 mls @ 5 mls/min IV QAM [facility] Stop: 01/12/21 22:41 Last Admin: 12/17/20 09:04 Dose: 5 mls/min Documented by: Heparin Sodium/Dextrose (Heparin Sodium/Dextrose) 25,000 units in 500 mls @ 24 mls/hr IV .[id number] [facility]; Protocol Stop: 01/12/21 22:41 Last Titration: 12/17/20 06:58 Dose: 1,200 units/hr, 24 mls/hr Documented by: Insulin Aspart (Insulin Aspart 100 Units/Ml 3 Ml Pen) 0 units SC ACHS [facility] Stop: 01/13/21 07:29 Last Admin: 12/17/20 09:05 Dose: 3 units Documented by: Levalbuterol HCl (Levalbuterol Hcl 1.25 Mg/3 Ml Neb) 1.25 mg NEB Q4H PRN PRN Reason: Shortness Of Breath Or Wheezing Stop: 01/12/21 23:14 Lisinopril (Lisinopril 5 Mg Tab) 5 mg PO DAILY [facility] Stop: 01/13/21 08:59 Last Admin: 12/17/20 09:05 Dose: 5 mg Documented by: Lorazepam (Lorazepam 1 Mg Tab) 1 - 3 mg PO UD PRN; Protocol PRN Reason: EtoH Withdrawal AWSS 6-10+ Stop: 01/12/21 22:41 Melatonin (Melatonin 3 Mg Tab) 3 mg PO HS [facility] Stop: 01/15/21 20:59 Last Admin: 12/16/20 21:04 Dose: 3 mg Documented by: Metoprolol Succinate (Metoprolol Succ 25mg Ext Rel Tab) [facility] [place]: 01/13/21 13:59 Last Admin: 12/17/20 09:18 Dose: Not Given Documented by: Miscellaneous (Remove Nicoderm Patch) 1 ea N/A DAILY@0859 [facility] Stop: 01/13/21 08:58 Last Admin: 12/17/20 09:08 Dose: 1 ea Documented by: Miscellaneous (Carbohydrates For Hypoglycemia ) 15 - 30 gm PO UD PRN PRN Reason: Hypoglycemia Treatment Stop: 01/12/21 23:29 Multivitamins/Minerals (Cerovite Adv Formula Tab) 1 tab PO QAM [facility] Stop: 01/13/21 08:59 Last Admin: 12/17/20 09:04 Dose: 1 tab Documented by: Nicotine (Nicotine 21 Mg/24 Hr Tdsy) 21 mg TD DAILY [facility] Stop: 01/12/21 22:41 Last Admin: 12/17/20 09:05 Dose: 21 mg Documented by: Nitroglycerin (Nitroglycerin Sl 0.4 Mg/Tab Tab) 0.4 mg SL UD PRN PRN Reason: Chest Pain Stop: 01/12/21 22:41 Polyethylene Glycol (Polyethylene (Miralax) 17 Gm Pack) 17 gm PO DAILY PRN PRN Reason: Constipation Stop: 01/12/21 22:41 Simvastatin (Simvastatin 80 Mg Tab) 80 mg PO DAILY [facility] Stop: 01/13/21 08:59 Last Admin: 12/17/20 09:04 Dose: 80 mg Documented by: Tamsulosin HCl (Tamsulosin Hcl 0.4 Mg Cap) 0.4 mg PO HS [facility] Stop: 01/13/21 20:59 Last Admin: 12/16/20 21:04 Dose: 0.4 mg Documented by: Warfarin Sodium (Warfarin Sod 5 Mg Tab) 5 mg PO DAILY@1600 [facility] Stop: 01/16/21 15:59 (1) CHF (congestive heart failure) Heart failure chronicity: acute Heart failure type: unspecified Qualified Code(s): I50.9 - Heart failure, unspecified
[2020-12-17] MEDS ORDERED: GABAPENTIN 600 MG TAB PO SCH (12:00)
[2020-12-17] MEDS: HEPARIN SODIUM/DEXTROSE 25,000 UNITS/500 ML BAG IV SCH (12:30)
[2020-12-17] MEDS ORDERED: WARFARIN SOD 5 MG TAB PO SCH (16:00)
[2020-12-17] MEDS: ALPRAZolam 0.5 MG TABLET PO PRN (19:40)
[2020-12-17] MEDS: TAMSULOSIN HCL 0.4 MG CAP PO SCH (20:17)
[2020-12-17] MEDS: MELATONIN 3 MG TAB PO SCH (20:17)
[2020-12-18 06:10] LABS: Hematocrit (blood only) 42.9 % (42-52); Hemoglobin 14.3 g/dL (14.0-18.0); Mean Corpuscular Hemoglobin 31.9 pg (25-34); Mean Corpuscular Hgb Conc 33.3 g/dL (32-36); Mean Corpuscular Volume 95.8 fL (80-100); Mean Platelet Volume 11.5 fL (7.4-10.4); Platelet Count 214 K/uL (130-400); RDW Coefficient of Variation 14.8 % (11.5-14.5); Red Blood Count 4.48 M/uL (4.7-6.1); White Blood Count 5.15 K/uL (4.8-10.8)
[2020-12-18 06:31] LABS: INR 1.5 (0.9-1.1); Partial Thromboplastin Ratio 2.3; Partial Thromboplastin Time 61.4 Seconds (21.0-31.0); Prothrombin Time 14.9 Seconds (9.0-12.0)
[2020-12-18 06:50] LABS: BUN Creatinine Ratio 25.8 (10-20); Calcium 9.4 mg/dl (8.5-10.1); Creatinine Clr Calc Pharmacy 78.2 ml/min; Est GFR (African American) 81.7 ml/min; Est GFR (Non-African American) 70.5 ml/min; Potassium 3.7 mmol/L (3.5-5.1)
--- NOTE | 2020-12-18 07:50 | Hospitalist Progress Note ---
Date of Service December 18, 2020 Assessment & Plan (1) CHF (congestive heart failure): This is a 70-year-old male, who presents with worsening lower extremity edema and found to be in [id number]-[id number] systolic congestive heart failure. 1. Ijchh-dg-gjvytva systolic congestive heart failure, last ejection fraction was around 20%. Previously declined ICD, now considering it. Received IV Lasix 40 mg in the ER. Continued on Iv lasix 40 bid, now switched to PO lasix 40 BID Continued home Coreg on admission initially. Switched to metoprolol succinate per cardiology. Daily weights, I's and O's. Echocardiogram - moderately dilated LV chamber size with global wall thinning. Severely reduced LV systolic function with severe global hypokinesis, EF less than 15%. Grade 3 diastolic dysfunction consistent with restrictive physiology. Dilated RV chamber size with reduced systolic function. Dilated mitral annulus with poor leaflet coaptation. Moderate mitral regurg with a centrally directed jet. Moderate tricuspid regurg. Severe biatrial enlargement. Compared to previous study of January 2020, LV systolic function has further declined. RV systolic failure is now present. Cardiology consulted. -Increase lisinopril to 10 mg, start spironolactone Cont. to monitor in the tele floor. 2. History of diabetes: Holding metformin and glipizide. Placed on insulin sliding scale. Current HbA1c 7.2% Follow the blood sugars while inpt. 3. Hyperlipidemia: Continue statin. 4. History of atrial fibrillation: On Coreg at home, now switched to metoprolol. At home currently on Coumadin 2.5 mg p.o. daily. Increased to 5 mg daily. Now on 10 mg as INR still subther apeutic. He says this has been cut in half because of his easy bruising . O admission INR 1.3 Today, his INR is 1.5 He was given 2.5 of Coumadin on admission and placed on IV heparin low dose bridging and follow PT/INR and adjust the Coumadin dosing. 5. Hypertension: Continued his Coreg and lisinopril initially. Now on metoprolol, lisinopril. Monitor the blood pressure. 6. History of alcoholism: He says he is currently drinking only 7 beers a week and one shot of vodka a week. Placed him on gabapentin protocol and Ativan p.r.n. Continue his home a lprazolam p.o. t.i.d. p.r.n. Reports feeling foggy after taking gabapentin, will discontinue now 7. History of ongoing tobacco abuse: Nicotine patch. 8. History of possible chronic obstructive pulmonary disease: Will place on nebs p.r.n. 9. Urinary retention: Currently status post Ravi. Consulted urology for further recommendations. PSA ordered - 2.8 Will need Ravi for 10-14 days, follow up w/ urology as outpt. 10. History of lung nodule, 5 mm, left upper lobe, in the last admission. Needs to follow up with a CT chest. 11. History of [place] exposure as per the patient. Disposition: Admit to tele floor. PT, OT prior to discharge. Follow up with cardiology, urology and PCP. 2 step prior to DC Admission and Anticipated Discharge Date Admission Date: December 13, 2020 Subjective Patient seen in follow-up of CHF exacerbation, urinary retention Currently he is sitting up in bed, in no acute distress Ravi catheter was placed in the ER, and draining the urine Patient is significantly conditioned, and seems to be hypoxic with ambulation, will obtain official study PT OT, 2 step At home on warfarin 2.5 mg daily, INR subtherapeutic on current dose of 5 mg daily, increased to 10 mg Patient says that he feels better overall, breathing better since admission, however short of breath w/ ambulation. denies any chest pain or palpitations Review of Systems Review of Systems: All systems reviewed & are unremarkable except as noted in HPI & below Constitutional: no fever and no chills Respiratory: + dyspnea on exertion; no cough Cardiovascular: + edema (improved); no chest pain Gastrointestinal: no abdominal pain, no nausea and no vomiting Physical Exam Physical Exam: GENERAL: The patient is of moderate build, not in acute distress. HEENT: NC/AT, EOMI, Pupils equal, round and reactive to light. Oral mucosa moist. NECK: No JVD, no neck masses. CARDIOVASCULAR: S1 and S2 heard. irregular. + syst. murmur RESPIRATORY: Normal AP diameter. No accessory muscle use. no wheezing. no crackles ABDOMEN: Soft, bowel sounds present. Ventral hernia seen in the umbilical region. No guarding, no rigidity. NEURO: Alert and oriented x3 and answering questions appropriately. No facial asymmetry, speech fluent, moves extremities EXTREMITIES: 1+ Bilateral lower extremity edema (improved). Mild erythema se en. Results & Data Results & Data ([facility]) Vital Signs (Past 12 Hours) Vital Signs Temp Pulse Pulse Resp BP BP Pulse Ox 12/18/20 07:47 36.3 C L 77 18 108/80 91 12/18/20 03:40 36.6 C 81 20 113/77 93 12/18/20 00:00 36.5 C 89 20 108/77 95 12/17/20 23:22 76 12/17/20 19:53 36.4 C L 85 20 104/85 92 Laboratory Results 12/18/20 12/18/20 12/18/20 Range/Units 07:06 05:35 05:35 WBC (4.8-10.8) K/uL RBC (4.7-6.1) M/uL Hgb (14.0-18.0) g/dL Hct (42-52) % MCV (80-100) fL MCH (25-34) pg MCHC (32-36) g/dL RDW Std Deviation (36.4-46.3) fL RDW Coeff of Tiffany (11.5-14.5) % Plt Count (130-400) K/uL MPV (7.4-10.4) fL PT 14.9 H (9.0-12.0) Seconds INR 1.5 H (0.9-1.1) APTT 61.4 H* (21.0-31.0) Seconds PTT Ratio 2.3 Sodium 134 L (136-145) mmol/L Potassium 3.7 D (3.5-5.1) mmol/L Chloride 100 (98-107) mmol/L Carbon Dioxide 28 (21-32) mmol/L Anion Gap 6.0 (3-11) BUN 28 H (7-18) mg/dl Creatinine 1.07 (0.6-1.4) mg/dl Est Cr Clr Drug Dosing 78.2 ml/min Est GFR ( Amer) 81.7 ml/min Est GFR (Non-Af Amer) 70.5 ml/min BUN/Creatinine Ratio 25.8 H (10-20) Glucose 101 H (70-99) mg/dl POC Glucose 106 H (70-99) mg/dl Calcium 9.4 (8.5-10.1) mg/dl Magnesium (1.8-2.4) mg/dl 12/18/20 12/17/20 12/17/20 Range/Units 05:35 20:16 16:21 WBC 5.15 (4.8-10.8) K/uL RBC 4.48 L (4.7-6.1) M/uL Hgb 14.3 (14.0-18.0) g/dL Hct 42.9 (42-52) % MCV 95.8 (80-100) fL MCH 31.9 (25-34) pg MCHC 33.3 (32-36) g/dL RDW Std Deviation 51.0 H (36.4-46.3) fL RDW Coeff of Tiffany 14.8 H (11.5-14.5) % Plt Count 214 (130-400) K/uL MPV 11.5 H (7.4-10.4) fL PT (9.0-12.0) Seconds INR (0.9-1.1) APTT (21.0-31.0) Seconds PTT Ratio Sodium (136-145) mmol/L Potassium (3.5-5.1) mmol/L Chloride (98-107) mmol/L Carbon Dioxide (21-32) mmol/L Anion Gap (3-11) BUN (7-18) mg/dl Creatinine (0.6-1.4) mg/dl Est Cr Clr Drug Dosing ml/min Est GFR ( Amer) ml/min Est GFR (Non-Af Amer) ml/min BUN/Creatinine Ratio (10-20) Glucose (70-99) mg/dl POC Glucose 124 H 107 H (70-99) mg/dl Calcium (8.5-10.1) mg/dl Magnesium (1.8-2.4) mg/dl 12/17/20 12/17/20 12/17/20 Range/Units 11:21 07:11 07:11 WBC (4.8-10.8) K/uL RBC (4.7-6.1) M/uL Hgb (14.0-18.0) g/dL Hct (42-52) % MCV (80-100) fL MCH (25-34) pg MCHC (32-36) g/dL RDW Std Deviation (36.4-46.3) fL RDW Coeff of Tiffany (11.5-14.5) % Plt Count (130-400) K/uL MPV (7.4-10.4) fL PT 15.5 H (9.0-12.0) Seconds INR 1.6 H (0.9-1.1) APTT 65.5 H* (21.0-31.0) Seconds PTT Ratio 2.5 Sodium (136-145) mmol/L Potassium (3.5-5.1) mmol/L Chloride (98-107) mmol/L Carbon Dioxide (21-32) mmol/L Anion Gap (3-11) BUN (7-18) mg/dl Creatinine (0.6-1.4) mg/dl Est Cr Clr Drug Dosing ml/min Est GFR ( Amer) ml/min Est GFR (Non-Af Amer) ml/min BUN/Creatinine Ratio (10-20) Glucose (70-99) mg/dl POC Glucose 128 H (70-99) mg/dl Calcium (8.5-10.1) mg/dl Magnesium (1.8-2.4) mg/dl 12/17/20 Range/Units 07:11 WBC (4.8-10.8) K/uL RBC (4.7-6.1) M/uL Hgb (14.0-18.0) g/dL Hct (42-52) % MCV (80-100) fL MCH (25-34) pg MCHC (32-36) g/dL RDW Std Deviation (36.4-46.3) fL RDW Coeff of Tiffany (11.5-14.5) % Plt Count (130-400) K/uL MPV (7.4-10.4) fL PT (9.0-12.0) Seconds INR (0.9-1.1) APTT (21.0-31.0) Seconds PTT Ratio Sodium 134 L (136-145) mmol/L Potassium 4.6 (3.5-5.1) mmol/L Chloride 99 (98-107) mmol/L Carbon Dioxide 32 (21-32) mmol/L Anion Gap 3.0 (3-11) BUN 30 H (7-18) mg/dl Creatinine 1.29 (0.6-1.4) mg/dl Est Cr Clr Drug Dosing 64.4 ml/min Est GFR ( Amer) 65.1 ml/min Est GFR (Non-Af Amer) 56.2 ml/min BUN/Creatinine Ratio 23.2 H (10-20) Glucose 120 H (70-99) mg/dl POC Glucose (70-99) mg/dl Calcium 9.3 (8.5-10.1) mg/dl Magnesium 2.2 (1.8-2.4) mg/dl Medications Administered Current Inpatient Medications Acetaminophen (Acetaminophen 325 Mg Tab) 650 mg PO Q4H PRN PRN Reason: Pain or Fever Stop: 01/12/21 22:41 Alprazolam (Alprazolam 0.5 Mg Tablet) 1 mg PO TID PRN PRN Reason: Anxiety Stop: 01/13/21 06:39 Last Admin: 12/17/20 19:40 Dose: 1 mg Documented by: Dextrose (Dextrose 50% 50 Ml Syringe) 25 - 50 ml IV UD PRN; Protocol PRN Reason: Hypoglycemia Protocol Stop: 01/12/21 23:29 Furosemide (Furosemide 40 Mg Tab) 40 mg PO BID17 [facility] Stop: 01/15/21 16:59 Last Admin: 12/17/20 16:56 Dose: 40 mg Documented by: Glucagon (Glucagon For Inj 1 Mg Vial) 1 mg IM UD PRN; Protocol PRN Reason: Hypoglycemia Protocol Stop: 01/12/21 23:29 Glucose (Glucose 40% Gel 15 Gm Tube) 15 - 30 gm PO UD PRN; Protocol PRN Reason: Hypoglycemia Protocol Stop: 01/12/21 23:29 Glucose (Glucose 10 Tabs/Tube) 4 - 8 tabs PO UD PRN; Protocol PRN Reason: Hypoglycemia Protocol Stop: 01/12/21 23:29 Thiamine HCl 100 mg/ Syringe 10 mls @ 2 mls/min IV QAM [facility] Stop: 01/12/21 22:41 Last Admin: 12/17/20 09:04 Dose: 2 mls/min Documented by: Folic Acid 1 mg/ Syringe 10 mls @ 5 mls/min IV QAM [facility] Stop: 01/12/21 22:41 Last Admin: 12/17/20 09:04 Dose: 5 mls/min Documented by: Heparin Sodium/Dextrose (Heparin Sodium/Dextrose) 25,000 units in 500 mls @ 24 mls/hr IV .[id number] [facility]; Protocol Stop: 01/12/21 22:41 Last Titration: 12/18/20 06:45 Dose: 1,200 units/hr, 24 mls/hr Documented by: Insulin Aspart (Insulin Aspart 100 Units/Ml 3 Ml Pen) 0 units SC ACHS [facility] Stop: 01/13/21 07:29 Last Admin: 12/17/20 20:21 Dose: Not Given Documented by: Levalbuterol HCl (Levalbuterol Hcl 1.25 Mg/3 Ml Neb) 1.25 mg NEB Q4H PRN PRN Reason: Shortness Of Breath Or Wheezing Stop: 01/12/21 23:14 Lisinopril (Lisinopril 5 Mg Tab) 5 mg PO DAILY [facility] Stop: 01/13/21 08:59 Last Admin: 12/17/20 09:05 Dose: 5 mg Documented by: Lorazepam (Lorazepam 1 Mg Tab) 1 - 3 mg PO UD PRN; Protocol PRN Reason: EtoH Withdrawal AWSS 6-10+ Stop: 01/12/21 22:41 Melatonin (Melatonin 3 Mg Tab) 3 mg PO HS [facility] Stop: 01/15/21 20:59 Last Admin: 12/17/20 20:17 Dose: 3 mg Documented by: Metoprolol Succinate (Metoprolol Succ 25mg Ext Rel Tab) 25 mg PO QAM [facility] Stop: 01/13/21 13:59 Last Admin: 12/17/20 09:18 Dose: Not Given Documented by: Miscellaneous (Remove Nicoderm Patch) 1 ea N/A DAILY@0859 [facility] Stop: 01/13/21 08:58 Last Admin: 12/17/20 09:08 Dose: 1 ea Documented by: Miscellaneous (Carbohydrates For Hypoglycemia ) 15 - 30 gm PO UD PRN PRN Reason: Hypoglycemia Treatment Stop: 01/12/21 23:29 Multivitamins/Minerals (Cerovite Adv Formula Tab) [facility] [place]: 01/13/21 08:59 Last Admin: 12/17/20 09:04 Dose: 1 tab Documented by: Nicotine (Nicotine 21 Mg/24 Hr Tdsy) 21 mg TD DAILY [facility] Stop: 01/12/21 22:41 Last Admin: 12/17/20 09:05 Dose: 21 mg Documented by: Nitroglycerin (Nitroglycerin Sl 0.4 Mg/Tab Tab) 0.4 mg SL UD PRN PRN Reason: Chest Pain Stop: 01/12/21 22:41 Polyethylene Glycol (Polyethylene (Miralax) 17 Gm Pack) 17 gm PO DAILY PRN PRN Reason: Constipation Stop: 01/12/21 22:41 Simvastatin (Simvastatin 80 Mg Tab) 80 mg PO DAILY [facility] Stop: 01/13/21 08:59 Last Admin: 12/17/20 09:04 Dose: 80 mg Documented by: Tamsulosin HCl (Tamsulosin Hcl 0.4 Mg Cap) 0.4 mg PO HS [facility] Stop: 01/13/21 20:59 Last Admin: 12/17/20 20:17 Dose: 0.4 mg Documented by: Warfarin Sodium (Warfarin Sod 5 Mg Tab) 5 mg PO DAILY@1600 [facility] Stop: 01/16/21 15:59 Last Admin: 12/17/20 16:56 Dose: 5 mg Documented by: (1) CHF (congestive heart failure) Heart failure chronicity: acute Heart failure type: unspecified Qualified Code(s): I50.9 - Heart failure, unspecified
[2020-12-18] MEDS: FUROSEMIDE 40 MG TAB PO SCH ×2 (08:08→17:10)
[2020-12-18] MEDS: THIAMINE HCL 100 MG in SYRINGE 9 ML IV SCH (08:08)
[2020-12-18] MEDS: FOLIC ACID 1 MG in SYRINGE 9.8 ML IV SCH (08:08)
[2020-12-18] MEDS: NICOTINE 21 MG/24 HR TDSY TD SCH (08:09)
[2020-12-18] MEDS: SIMVASTATIN 80 MG TAB PO SCH (08:09)
[2020-12-18] MEDS: lisinopril 5 MG TAB PO SCH (08:09)
[2020-12-18] MEDS: CEROVITE ADV FORMULA TAB PO SCH (08:09)
[2020-12-18] MEDS: METOPROLOL SUCC 25MG EXT REL TAB PO SCH (08:09)
[2020-12-18] MEDS: INSULIN ASPART 100 UNITS/ML 3 ML PEN SC SCH ×4 (08:10→21:14)
[2020-12-18] MEDS: HEPARIN SODIUM/DEXTROSE 25,000 UNITS/500 ML BAG IV SCH (10:38)
[2020-12-18] MEDS ORDERED: POTASSIUM CHLORIDE CRTAB 20 MEQ TABCR PO STA (10:49)
--- NOTE | 2020-12-18 11:03 | Cardiology Progress Note ---
Date of Service December 18, 2020 Assessment & Plan (1) Atrial fibrillation: (2) CHF (congestive heart failure): (3) Acute on chronic heart failure with reduced ejection fraction and diastolic dysfunction: The patient is deconditioned and will need physical therapy. Consideration should be given for rehab hospital. I will order physical therapy. He will also need a two-step walk study to see if he qualifies for home oxygen. I have increased his lisinopril to 10 mg daily and started spi ronolactone. I would continue his current dose of p.o. Lasix but at some point we may consider reducing it to once daily. His INR remains subtherapeutic. He has had no warfarin adjustment since it was started this admission. I have increased his warfarin to 10 mg daily for the next few days until his INR becomes therapeutic and then it can be reduced if necessary. I will stop his heparin which should enhance his ability to ambulate. I have also asked that they switch his Ravi to a leg bag. Admission and Anticipated Discharge Date Admission Date: December 13, 2020 Subjective The patient became short of breath with minimal activity of trying to get out of bed. He was tangled up in his covering. Review of Systems Review of Systems: All systems reviewed & are unremarkable except as noted in Subjective Physical Exam Physical Exam: General: no acute distress and stated age Head: normocephalic, no masses, lesions, tenderness or abnormalities Eyes: conjunctiva are pink and non-injected, sclera clear Neck: supple, no adenopathy, no bruits, normal jugular venous pulse, no hepatojugular reflux Chest: normal shape and normal respiratory effort Lungs: clear to auscultation and percussion Cardiac Exam: - irregular rate & rhythm, no murmurs gallops or rubs - normal S1, normal S2 Pulses: 2(+) throughout Abdomen: abdomen soft, non-tender, no abnormal masses and no hepatosplenomegaly Musculoskeletal: no gait disturbance, no joint inflammation, no deforming arthritis Extremities: no edema and no cyanosis Neuro: grossly normal exam Results & Data ([facility]) Vital Signs (Past 12 Hours) Vital Signs Temp Pulse Pulse Resp BP BP Pulse Ox 12/18/20 09:03 98 H 12/18/20 07:47 36.3 C L 77 18 108/80 91 12/18/20 03:40 36.6 C 81 20 113/77 93 12/18/20 00:00 36.5 C 89 20 108/77 95 12/17/20 23:22 76 Laboratory Results Laboratory Results - last 24 hr 12/17/20 12/17/20 12/17/20 11:21 16:21 20:16 WBC RBC Hgb Hct MCV MCH MCHC RDW Std Deviation RDW Coeff of Tiffany Plt Count MPV PT INR APTT PTT Ratio Sodium Potassium Chloride Carbon Dioxide Anion Gap BUN Creatinine Est Cr Clr Drug Dosing Est GFR ( Amer) Est GFR (Non-Af Amer) BUN/Creatinine Ratio Glucose POC Glucose 128 H 107 H 124 H Calcium 12/18/20 12/18/20 12/18/20 05:35 05:35 05:35 WBC 5.15 RBC 4.48 L Hgb 14.3 Hct 42.9 MCV 95.8 MCH 31.9 MCHC 33.3 RDW Std Deviation 51.0 H RDW Coeff of Tiffany 14.8 H Plt Count 214 MPV 11.5 H PT 14.9 H INR 1.5 H APTT 61.4 H* PTT Ratio 2.3 Sodium 134 L Potassium 3.7 D Chloride 100 Carbon Dioxide 28 Anion Gap 6.0 BUN 28 H Creatinine 1.07 Est Cr Clr Drug Dosing 78.2 Est GFR ( Amer) 81.7 Est GFR (Non-Af Amer) 70.5 BUN/Creatinine Ratio 25.8 H Glucose 101 H POC Glucose Calcium 9.4 12/18/20 07:06 WBC RBC Hgb Hct MCV MCH MCHC RDW Std Deviation RDW Coeff of Tiffany Plt Count MPV PT INR APTT PTT Ratio Sodium Potassium Chloride Carbon Dioxide Anion Gap BUN Creatinine Est Cr Clr Drug Dosing Est GFR ( Amer) Est GFR (Non-Af Amer) BUN/Creatinine Ratio Glucose POC Glucose 106 H Calcium Medications Administered Current Inpatient Medications Acetaminophen (Acetaminophen 325 Mg Tab) 650 mg PO Q4H PRN PRN Reason: Pain or Fever Stop: 01/12/21 22:41 Alprazolam (Alprazolam 0.5 Mg Tablet) 1 mg PO TID PRN PRN Reason: Anxiety Stop: 01/13/21 06:39 Last Admin: 12/17/20 19:40 Dose: 1 mg Documented by: Dextrose (Dextrose 50% 50 Ml Syringe) 25 - 50 ml IV UD PRN; Protocol PRN Reason: Hypoglycemia Protocol Stop: 01/12/21 23:29 Furosemide (Furosemide 40 Mg Tab) 40 mg PO [id number] [facility]BE Stop: 01/15/21 16:59 Last Admin: 12/18/20 08:08 Dose: 40 mg Documented by: Glucagon (Glucagon For Inj 1 Mg Vial) 1 mg IM UD PRN; Protocol PRN Reason: Hypoglycemia Protocol Stop: 01/12/21 23:29 Glucose (Glucose 40% Gel 15 Gm Tube) 15 - 30 gm PO UD PRN; Protocol PRN Reason: Hypoglycemia Protocol Stop: 01/12/21 23:29 Glucose (Glucose 10 Tabs/Tube) 4 - 8 tabs PO UD PRN; Protocol PRN Reason: Hypoglycemia Protocol Stop: 01/12/21 23:29 Thiamine HCl 100 mg/ Syringe 10 mls @ 2 mls/min IV QAM [facility] Stop: 01/12/21 22:41 Last Admin: 12/18/20 08:08 Dose: 2 mls/min Documented by: Folic Acid 1 mg/ Syringe 10 mls @ 5 mls/min IV QAM [facility] Stop: 01/12/21 22:41 Last Admin: 12/18/20 08:08 Dose: 5 mls/min Documented by: Insulin Aspart (Insulin Aspart 100 Units/Ml 3 Ml Pen) 0 units SC ACHS [facility] Stop: 01/13/21 07:29 Last Admin: 12/18/20 08:10 Dose: 2 units Documented by: Levalbuterol HCl (Levalbuterol Hcl 1.25 Mg/3 Ml Neb) 1.25 mg NEB Q4H PRN PRN Reason: Shortness Of Breath Or Wheezing Stop: 01/12/21 23:14 Lisinopril (Lisinopril 10 Mg Tab) 10 mg PO DAILY [facility] Stop: 01/18/21 08:59 Lorazepam (Lorazepam 1 Mg Tab) 1 - 3 mg PO UD PRN; Protocol PRN Reason: EtoH Withdrawal AWSS 6-10+ Stop: 01/12/21 22:41 Melatonin (Melatonin 3 Mg Tab) 3 mg PO HS [facility] Stop: 01/15/21 20:59 Last Admin: 12/17/20 20:17 Dose: 3 mg Documented by: Metoprolol Succinate (Metoprolol Succ 25mg Ext Rel Tab) 25 mg PO QAM [facility] Stop: 01/13/21 13:59 Last Admin: 12/18/20 08:09 Dose: 25 mg Documented by: Miscellaneous (Remove Nicoderm Patch) 1 ea N/A DAILY@0859 [facility] Stop: 01/13/21 08:58 Last Admin: 12/18/20 08:09 Dose: 1 ea Documented by: Miscellaneous (Carbohydrates For Hypoglycemia ) 15 - 30 gm PO UD PRN PRN Reason: Hypoglycemia Treatment Stop: 01/12/21 23:29 Multivitamins/Minerals (Cerovite Adv Formula Tab) 1 tab PO QAM [facility] Stop: 01/13/21 08:59 Last Admin: 12/18/20 08:09 Dose: 1 tab Documented by: Nicotine (Nicotine 21 Mg/24 Hr Tdsy) 21 mg TD DAILY [facility] Stop: 01/12/21 22:41 Last Admin: 12/18/20 08:09 Dose: 21 mg Documented by: Nitroglycerin (Nitroglycerin Sl 0.4 Mg/Tab Tab) 0.4 mg SL UD PRN PRN Reason: Chest Pain Stop: 01/12/21 22:41 Polyethylene Glycol (Polyethylene (Miralax) 17 Gm Pack) 17 gm PO DAILY PRN PRN Reason: Constipation Stop: 01/12/21 22:41 Simvastatin (Simvastatin 80 Mg Tab) 80 mg PO DAILY [facility] Stop: 01/13/21 08:59 Last Admin: 12/18/20 08:09 Dose: 80 mg Documented by: Spironolactone (Spironolactone 12.5 Mg Tab) 12.5 mg PO DAILY [facility] Stop: 01/17/21 10:59 Tamsulosin HCl (Tamsulosin Hcl 0.4 Mg Cap) 0.4 mg PO HS [facility] Stop: 01/13/21 20:59 Last Admin: 12/17/20 20:17 Dose: 0.4 mg Documented by: Warfarin Sodium (Warfarin Sod 10 Mg Tab) 10 mg PO DAILY@1600 [facility] Stop: 01/17/21 15:59 (1) CHF (congestive heart failure) Heart failure chronicity: acute Heart failure type: unspecified Qualified Code(s): I50.9 - Heart failure, unspecified (2) Atrial fibrillation Atrial fibrillation type: longstanding persistent Qualified Code(s): I48.11 - Longstanding persistent atrial fibrillation
[2020-12-18] MEDS: SPIRONOLACTONE 12.5 MG TAB PO SCH (11:57)
[2020-12-18] MEDS ORDERED: WARFARIN SOD 10 MG TAB PO SCH (16:00)
[2020-12-18] MEDS: Heparin IV Adult Wt-Based Low-Dose *NO* Bolus Protocol IV SCH ×4 (19:32→21:53)
[2020-12-18] MEDS: TAMSULOSIN HCL 0.4 MG CAP PO SCH (21:28)
[2020-12-18] MEDS: ALPRAZolam 0.5 MG TABLET PO PRN (21:28)
[2020-12-18] MEDS: MELATONIN 3 MG TAB PO SCH (21:28)
[2020-12-19 06:31] LABS: Hemoglobin 13.2 g/dL (14.0-18.0); Mean Corpuscular Hemoglobin 31.6 pg (25-34); Mean Corpuscular Hgb Conc 33.8 g/dL (32-36); Mean Corpuscular Volume 93.3 fL (80-100); Mean Platelet Volume 11.4 fL (7.4-10.4); Platelet Count 193 K/uL (130-400); RDW Coefficient of Variation 14.9 % (11.5-14.5); RDW Standard Deviation 49.6 fL (36.4-46.3); Red Blood Count 4.18 M/uL (4.7-6.1); White Blood Count 5.64 K/uL (4.8-10.8)
[2020-12-19 06:37] LABS: INR 1.6 (0.9-1.1); Partial Thromboplastin Ratio 1.1; Partial Thromboplastin Time 27.7 Seconds (21.0-31.0); Prothrombin Time 15.7 Seconds (9.0-12.0)
[2020-12-19 07:18] LABS: BUN Creatinine Ratio 22.4 (10-20); Calcium 9.2 mg/dl (8.5-10.1); Creatinine Clr Calc Pharmacy 80.5 ml/min; Est GFR (African American) 84.5 ml/min; Est GFR (Non-African American) 72.9 ml/min; Magnesium 2.2 mg/dl (1.8-2.4)
[2020-12-19] MEDS: SPIRONOLACTONE 12.5 MG TAB PO SCH (08:01)
[2020-12-19] MEDS: METOPROLOL SUCC 25MG EXT REL TAB PO SCH (08:01)
[2020-12-19] MEDS: THIAMINE HCL 100 MG in SYRINGE 9 ML IV SCH (08:01)
[2020-12-19] MEDS: FOLIC ACID 1 MG in SYRINGE 9.8 ML IV SCH (08:01)
[2020-12-19] MEDS: CEROVITE ADV FORMULA TAB PO SCH (08:01)
[2020-12-19] MEDS: SIMVASTATIN 80 MG TAB PO SCH (08:01)
[2020-12-19] MEDS: NICOTINE 21 MG/24 HR TDSY TD SCH (08:02)
[2020-12-19] MEDS: FUROSEMIDE 40 MG TAB PO SCH (08:02)
[2020-12-19] MEDS: INSULIN ASPART 100 UNITS/ML 3 ML PEN SC SCH ×2 (08:10→12:11)
--- NOTE | 2020-12-19 08:36 | Hospitalist Progress Note ---
Date of Service December 19, 2020 Assessment & Plan (1) CHF (congestive heart failure): This is a 70-year-old male, who presents with worsening lower extremity edema and found to be in [id number] systolic congestive heart failure. 1. [id number] systolic congestive heart failure, last ejection fraction was around 20%. Previously declined ICD, now considering it. Received IV Lasix 40 mg in the ER. Continued on Iv lasix 40 bid, then switched to PO lasix 40 BID - will DC on furosemide 40 daily Continued home Coreg on admission initially. Switched to metoprolol succinate per cardiology. Daily weights, I's and O's. Echocardiogram - moderately dilated LV chamber size with global wall thinning. Severely reduced LV systolic function with severe global hypokinesis, EF less than 15%. Grade 3 diastolic dysfunction consistent with restrictive physiology. Dilated RV chamber size with reduced systolic function. Dilated mitral annulus with poor leaflet coaptation. Moderate mitral regurg with a centrally directed jet. Moderate tricuspid regurg. Severe biatrial enlargement. Compared to previous study of January 2020, LV systolic function has further declined. RV systolic failure is now present. Cardiology consulted. -Increase lisinopril to 10 mg, started spironolactone Cont. to monitor in the tele floor. 2. History of diabetes: Holding metformin and glipizide. Placed on insulin sliding scale. Current HbA1c 7.2% Follow the blood sugars while inpt. 3. Hyperlipidemia: Continue statin. 4. History of atrial fibrillation: On Coreg at home, now switched to metoprolol. At home currently on Coumadin 2.5 mg p.o. daily. Increased to 5 mg daily. Now on 10 mg as INR still subtherapeutic. He says this has been cut in half because of his easy bruising . O admission INR 1.3 Today, his INR is 1.5 He was given 2.5 of Coumadin on admission and placed on IV heparin low dose bridging and follow PT/INR and adjust the Coumadin dosing. We will discharge on 7.5 mg of warfarin daily, patient to closely follow-up with anticoagulation clinic. 5. Hypertension: Continued his Coreg and lisinopril initially. Now on metoprolol, lisinopril. Monitor the blood pressure. 6. History of alcoholism: He says he is currently drinking only 7 beers a week and one shot of vodka a week. Placed him on gabapentin protocol and Ativan p.r.n. Continue his home alprazolam p.o. t.i.d. p.r.n. Reports feeling foggy after taking gabapentin, will discontinue now 7. History of ongoing tobacco abuse: Nicotine patch. 8. History of possible chronic obstructive pulmonary disease: Will place on nebs p.r.n. 9. Urinary retention: Currently status post Ravi. Consulted urology for further recommendations. PSA ordered - 2.8 Will need Ravi for 10-14 days, follow up w/ urology as outpt. 10. History of lung nodule, 5 mm, left upper lobe, in the last admission. Needs to follow up with a CT chest. 11. History of Agent Procious exposure as per the patient. Disposition: Admit to tele floor. PT, OT prior to discharge. Follow up with cardiology, urology and PCP. 2 step prior to DC -patient will need 3L of O2 with ambulation Admission and Anticipated Discharge Date Admission Date: December 13, 2020 Subjective Patient seen in follow-up of CHF exacerbation, urinary retention Currently he is sitting up in bed, in no acute distress Ravi catheter was placed in the ER, and draining the urine Patient is significantly conditioned, and seems to be hypoxic with ambulation, will obtain official study PT OT, 2 step At home on warfarin 2.5 mg daily, INR subtherapeutic on current dose of 5 mg daily, increased to 10 mg Patient says that he feels better overall, breathing better since admission, however short of breath w/ ambulation. denies any chest pain or palpitations Review of Systems Review of Systems: All systems reviewed & are unremarkable except as noted in HPI & below Constitutional: no fever and no chills Respiratory: + dyspnea on exertion; no cough Cardiovascular: no chest pain and no palpitations Gastrointestinal: no abdominal pain, no nausea and no vomiting Physical Exam Physical Exam: GENERAL: The patient is of moderate build, not in acute distress. HEENT: NC/AT, EOMI, Pupils equal, round and reactive to light. Oral mucosa moist. NECK: No JVD, no neck masses. CARDIOVASCULAR: S1 and S2 heard. irregular. + syst. murmur RESPIRATORY: Normal AP diameter. No accessory muscle use. no wheezing. no crackles ABDOMEN: Soft, bowel sounds present. Ventral hernia seen in the umbilical region. No guarding, no rigidity. NEURO: Alert and oriented x3 and answering questions appropriately. No facial asymmetry, speech fluent, moves extremities EXTREMITIES: 1+ Bilateral lower extremity edema (improved). Mild erythema seen. Results & Data Results & Data ([facility]) Vital Signs (Past 12 Hours) Vital Signs Temp Pulse Pulse Resp BP Pulse Ox 12/19/20 08:26 36.5 C 90 18 99/69 L 96 12/19/20 07:48 92 H 12/19/20 03:00 36.7 C 63 18 102/66 95 12/18/20 23:22 36.4 C L 81 18 99/52 L 94 Laboratory Results 12/19/20 12/19/20 12/19/20 Range/Units 07:05 05:55 05:55 WBC 5.64 (4.8-10.8) K/uL RBC 4.18 L (4.7-6.1) M/uL Hgb 13.2 L (14.0-18.0) g/dL Hct 39.0 L (42-52) % MCV 93.3 (80-100) fL MCH 31.6 (25-34) pg MCHC 33.8 (32-36) g/dL RDW Std Deviation 49.6 H (36.4-46.3) fL RDW Coeff of Tiffany 14.9 H (11.5-14.5) % Plt Count 193 (130-400) K/uL MPV 11.4 H (7.4-10.4) fL PT (9.0-12.0) Seconds INR (0.9-1.1) APTT (21.0-31.0) Seconds PTT Ratio Sodium 135 L (136-145) mmol/L Potassium 4.0 (3.5-5.1) mmol/L Chloride 101 (98-107) mmol/L Carbon Dioxide 28 (21-32) mmol/L Anion Gap 6.0 (3-11) BUN 23 H (7-18) mg/dl Creatinine 1.04 (0.6-1.4) mg/dl Est Cr Clr Drug Dosing 80.5 ml/min Est GFR ( Amer) 84.5 ml/min Est GFR (Non-Af Amer) 72.9 ml/min BUN/Creatinine Ratio 22.4 H (10-20) Glucose 105 H (70-99) mg/dl POC Glucose 97 (70-99) mg/dl Calcium 9.2 (8.5-10.1) mg/dl Magnesium 2.2 (1.8-2.4) mg/dl 12/19/20 12/18/20 12/18/20 Range/Units 05:55 20:38 16:00 WBC (4.8-10.8) K/uL RBC (4.7-6.1) M/uL Hgb (14.0-18.0) g/dL Hct (42-52) % MCV (80-100) fL MCH (25-34) pg MCHC (32-36) g/dL RDW Std Deviation (36.4-46.3) fL RDW Coeff of Tiffany (11.5-14.5) % Plt Count (130-400) K/uL MPV (7.4-10.4) fL PT 15.7 H (9.0-12.0) Seconds INR 1.6 H (0.9-1.1) APTT 27.7 (21.0-31.0) Seconds PTT Ratio 1.1 Sodium (136-145) mmol/L Potassium (3.5-5.1) mmol/L Chloride (98-107) mmol/L Carbon Dioxide (21-32) mmol/L Anion Gap (3-11) BUN (7-18) mg/dl Creatinine (0.6-1.4) mg/dl Est Cr Clr Drug Dosing ml/min Est GFR ( Amer) ml/min Est GFR (Non-Af Amer) ml/min BUN/Creatinine Ratio (10-20) Glucose (70-99) mg/dl POC Glucose 116 H 126 H (70-99) mg/dl Calcium (8.5-10.1) mg/dl Magnesium (1.8-2.4) mg/dl 12/18/20 Range/Units 11:32 WBC (4.8-10.8) K/uL RBC (4.7-6.1) M/uL Hgb (14.0-18.0) g/dL Hct (42-52) % MCV (80-100) fL MCH (25-34) pg MCHC (32-36) g/dL RDW Std Deviation (36.4-46.3) fL RDW Coeff of Tiffany (11.5-14.5) % Plt Count (130-400) K/uL MPV (7.4-10.4) fL PT (9.0-12.0) Seconds INR (0.9-1.1) APTT (21.0-31.0) Seconds PTT Ratio Sodium (136-145) mmol/L Potassium (3.5-5.1) mmol/L Chloride (98-107) mmol/L Carbon Dioxide (21-32) mmol/L Anion Gap (3-11) BUN (7-18) mg/dl Creatinine (0.6-1.4) mg/dl Est Cr Clr Drug Dosing ml/min Est GFR ( Amer) ml/min Est GFR (Non-Af Amer) ml/min BUN/Creatinine Ratio (10-20) Glucose (70-99) mg/dl POC Glucose 171 H (70-99) mg/dl Calcium (8.5-10.1) mg/dl Magnesium (1.8-2.4) mg/dl Medications Administered Current Inpatient Medications Acetaminophen (Acetaminophen 325 Mg Tab) 650 mg PO Q4H PRN PRN Reason: Pain or Fever Stop: 01/12/21 22:41 Alprazolam (Alprazolam 0.5 Mg Tablet) 1 mg PO TID PRN PRN Reason: Anxiety Stop: 01/13/21 06:39 Last Admin: 12/18/20 21:28 Dose: 1 mg Documented by: Dextrose (Dextrose 50% 50 Ml Syringe) 25 - 50 ml IV UD PRN; Protocol PRN Reason: Hypoglycemia Protocol Stop: 01/12/21 23:29 Furosemide (Furosemide 40 Mg Tab) 40 mg PO [id number] KOBE Stop: 01/15/21 16:59 Last Admin: 12/19/20 08:02 Dose: 40 mg Documented by: Glucagon (Glucagon For Inj 1 Mg Vial) 1 mg IM UD PRN; Protocol PRN Reason: Hypoglycemia Protocol Stop: 01/12/21 23:29 Glucose (Glucose 40% Gel 15 Gm Tube) 15 - 30 gm PO UD PRN; Protocol PRN Reason: Hypoglycemia Protocol Stop: 01/12/21 23:29 Glucose (Glucose 10 Tabs/Tube) 4 - 8 tabs PO UD PRN; Protocol PRN Reason: Hypoglycemia Protocol Stop: 01/12/21 23:29 Thiamine HCl 100 mg/ Syringe 10 mls @ 2 mls/min IV QAM [facility] Stop: 01/12/21 22:41 Last Admin: 12/19/20 08:01 Dose: 2 mls/min Documented by: Folic Acid 1 mg/ Syringe 10 mls @ 5 mls/min IV QAM [facility] Stop: 01/12/21 22:41 Last Admin: 12/19/20 08:01 Dose: 5 mls/min Documented by: Insulin Aspart (Insulin Aspart 100 Units/Ml 3 Ml Pen) 0 units SC ACHS [facility] Stop: 01/13/21 07:29 Last Admin: 12/19/20 08:10 Dose: Not Given Documented by: Levalbuterol HCl (Levalbuterol Hcl 1.25 Mg/3 Ml Neb) 1.25 mg NEB Q4H PRN PRN Reason: Shortness Of Breath Or Wheezing Stop: 01/12/21 23:14 Lisinopril (Lisinopril 10 Mg Tab) 10 mg PO DAILY [facility] Stop: 01/18/21 08:59 Last Admin: 12/19/20 08:01 Dose: 10 mg Documented by: Lorazepam (Lorazepam 1 Mg Tab) 1 - 3 mg PO UD PRN; Protocol PRN Reason: EtoH Withdrawal AWSS 6-10+ Stop: 01/12/21 22:41 Melatonin (Melatonin 3 Mg Tab) 3 mg PO HS [facility] Stop: 01/15/21 20:59 Last Admin: 12/18/20 21:28 Dose: 3 mg Documented by: Metoprolol Succinate (Metoprolol Succ 25mg Ext Rel Tab) [facility] Stop: 01/13/21 13:59 Last Admin: 12/19/20 08:01 Dose: 25 mg Documented by: Miscellaneous (Remove Nicoderm Patch) 1 ea N/A DAILY@0859 [facility] Stop: 01/13/21 08:58 Last Admin: 12/19/20 08:09 Dose: 1 ea Documented by: Miscellaneous (Carbohydrates For Hypoglycemia ) 15 - 30 gm PO UD PRN PRN Reason: Hypoglycemia Treatment Stop: 01/12/21 23:29 Multivitamins/Minerals (Cerovite Adv Formula Tab) [facility] [place] Stop: 01/13/21 08:59 Last Admin: 12/19/20 08:01 Dose: 1 tab Documented by: Nicotine (Nicotine 21 Mg/24 Hr Tdsy) 21 mg TD DAILY [facility] Stop: 01/12/21 22:41 Last Admin: 12/19/20 08:02 Dose: 21 mg Documented by: Nitroglycerin (Nitroglycerin Sl 0.4 Mg/Tab Tab) 0.4 mg SL UD PRN PRN Reason: Chest Pain Stop: 01/12/21 22:41 Polyethylene Glycol (Polyethylene (Miralax) 17 Gm Pack) 17 gm PO DAILY PRN PRN Reason: Constipation Stop: 01/12/21 22:41 Simvastatin (Simvastatin 80 Mg Tab) 80 mg PO DAILY [facility] Stop: 01/13/21 08:59 Last Admin: 12/19/20 08:01 Dose: 80 mg Documented by: Spironolactone (Spironolactone 12.5 Mg Tab) 12.5 mg PO DAILY [facility] Stop: 01/17/21 10:59 Last Admin: 12/19/20 08:01 Dose: 12.5 mg Documented by: Tamsulosin HCl (Tamsulosin Hcl 0.4 Mg Cap) 0.4 mg PO HS [facility] Stop: 01/13/21 20:59 Last Admin: 12/18/20 21:28 Dose: 0.4 mg Documented by: Warfarin Sodium (Warfarin Sod 10 Mg Tab) 10 mg PO DAILY@1600 [facility] Stop: 01/17/21 15:59 Last Admin: 12/18/20 17:10 Dose: 10 mg Documented by: (1) CHF (congestive heart failure) Heart failure chronicity: acute Heart failure type: unspecified Qualified Code(s): I50.9 - Heart failure, unspecified
[2020-12-19] MEDS ORDERED: lisinopril 10 MG TAB PO SCH (09:00)
--- NOTE | 2020-12-19 12:31 | Cardiology Progress Note ---
Date of Service December 19, 2020 Assessment & Plan (1) Atrial fibrillation: (2) CHF (congestive heart failure): (3) Acute on chronic heart failure with reduced ejection fraction and diastolic dysfunction: (4) COPD (chronic obstructive pulmonary disease) with emphysema: Believe the patient may be discharged to outpatient follow-up. I will arrange follow-up through our clinic in [place]. He will also need a referral to the coag clinic for Coumadin. I reduce the dose of Coumadin to 7.5 mg daily starting today. I believe his Lasix dose can be reduced to once daily. His other medications will remain the same. He will need early follow-up with us which I will arrange for heart failure. He will need an ICD in the future however, he currently has an indwelling Ravi catheter that will need to come out as it will be a source of infection if we put a device in at this moment. The Ravi catheter is scheduled to be in for at least another week. I will discussed the ICD implant with him at his next follow-up which can then be arranged as an outpatient and of course it is important that he remains compliant with follow-up and medications. Admission and Anticipated Discharge Date Admission Date: December 13, 2020 Subjective The patient is doing well physical therapy. They have given clearance for him to return home. He has no new cardiac complaints today. Review of Systems Review of Systems: All systems reviewed & are unremarkable except as noted in Subjective Physical Exam Physical Exam: General: no acute distress and stated age Head: normocephalic, no masses, lesions, tenderness or abnormalities Eyes: conjunctiva are pink and non-injected, sclera clear Neck: supple, no adenopathy, no bruits, normal jugular venous pulse, no hepatojugular reflux Chest: normal shape and normal respiratory effort Lungs: clear to auscultation and percussion Cardiac Exam: - irregular rate & rhythm, no murmurs gallops or rubs - normal S1, normal S2 Pulses: 2(+) throughout Abdomen: abdomen soft, non-tender, no abnormal masses and no hepatosplenomegaly Musculoskeletal: no gait disturbance, no joint inflammation, no deforming arthritis Extremities: no edema and no cyanosis Neuro: grossly normal exam Results & Data ([facility]) Vital Signs (Past 12 Hours) Vital Signs Temp Pulse Pulse Resp BP Pulse Ox 12/19/20 11:13 36.3 C L 61 18 111/75 97 12/19/20 08:26 36.5 C 90 18 99/69 L 96 12/19/20 07:48 92 H 12/19/20 03:00 36.7 C 63 18 102/66 95 Laboratory Results Laboratory Results - last 24 hr 12/18/20 12/18/20 12/19/20 16:00 20:38 05:55 WBC RBC Hgb Hct MCV MCH MCHC RDW Std Deviation RDW Coeff of Tiffany Plt Count MPV PT 15.7 H INR 1.6 H APTT 27.7 PTT Ratio 1.1 Sodium Potassium Chloride Carbon Dioxide Anion Gap BUN Creatinine Est Cr Clr Drug Dosing Est GFR ( Amer) Est GFR (Non-Af Amer) BUN/Creatinine Ratio Glucose POC Glucose 126 H 116 H Calcium Magnesium 12/19/20 12/19/20 12/19/20 05:55 05:55 07:05 WBC 5.64 RBC 4.18 L Hgb 13.2 L Hct 39.0 L MCV 93.3 MCH 31.6 MCHC 33.8 RDW Std Deviation 49.6 H RDW Coeff of Tiffany 14.9 H Plt Count 193 MPV 11.4 H PT INR APTT PTT Ratio Sodium 135 L Potassium 4.0 Chloride 101 Carbon Dioxide 28 Anion Gap 6.0 BUN 23 H Creatinine 1.04 Est Cr Clr Drug Dosing 80.5 Est GFR ( Amer) 84.5 Est GFR (Non-Af Amer) 72.9 BUN/Creatinine Ratio 22.4 H Glucose 105 H POC Glucose 97 Calcium 9.2 Magnesium 2.2 12/19/20 10:43 WBC RBC Hgb Hct MCV MCH MCHC RDW Std Deviation RDW Coeff of Tiffany Plt Count MPV PT INR APTT PTT Ratio Sodium Potassium Chloride Carbon Dioxide Anion Gap BUN Creatinine Est Cr Clr Drug Dosing Est GFR ( Amer) Est GFR (Non-Af Amer) BUN/Creatinine Ratio Glucose POC Glucose 148 H Calcium Magnesium Medications Administered Current Inpatient Medications Acetaminophen (Acetaminophen 325 Mg Tab) 650 mg PO Q4H PRN PRN Reason: Pain or Fever Stop: 01/12/21 22:41 Alprazolam (Alprazolam 0.5 Mg Tablet) 1 mg PO TID PRN PRN Reason: Anxiety Stop: 01/13/21 06:39 Last Admin: 12/18/20 21:28 Dose: 1 mg Documented by: Dextrose (Dextrose 50% 50 Ml Syringe) 25 - 50 ml IV UD PRN; Protocol PRN Reason: Hypoglycemia Protocol Stop: 01/12/21 23:29 Furosemide (Furosemide 40 Mg Tab) 40 mg PO [id number] KOBE Stop: 01/15/21 16:59 Last Admin: 12/19/20 08:02 Dose: 40 mg Documented by: Glucagon (Glucagon For Inj 1 Mg Vial) 1 mg IM UD PRN; Protocol PRN Reason: Hypoglycemia Protocol Stop: 01/12/21 23:29 Glucose (Glucose 40% Gel 15 Gm Tube) 15 - 30 gm PO UD PRN; Protocol PRN Reason: Hypoglycemia Protocol Stop: 01/12/21 23:29 Glucose (Glucose 10 Tabs/Tube) 4 - 8 tabs PO UD PRN; Protocol PRN Reason: Hypoglycemia Protocol Stop: 01/12/21 23:29 Thiamine HCl 100 mg/ Syringe 10 mls @ 2 mls/min IV QAM KOBE Stop: 01/12/21 22:41 Last Admin: 12/19/20 08:01 Dose: 2 mls/min Documented by: Folic Acid 1 mg/ Syringe 10 mls @ 5 mls/min IV QAM KOBE Stop: 01/12/21 22:41 Last Admin: 12/19/20 08:01 Dose: 5 mls/min Documented by: Insulin Aspart (Insulin Aspart 100 Units/Ml 3 Ml Pen) 0 units SC ACHS [facility] Stop: 01/13/21 07:29 Last Admin: 12/19/20 12:11 Dose: 3 units Documented by: Levalbuterol HCl (Levalbuterol Hcl 1.25 Mg/3 Ml Neb) 1.25 mg NEB Q4H PRN PRN Reason: Shortness Of Breath Or Wheezing Stop: 01/12/21 23:14 Lisinopril (Lisinopril 10 Mg Tab) 10 mg PO DAILY KOBE Stop: 01/18/21 08:59 Last Admin: 12/19/20 08:01 Dose: 10 mg Documented by: Lorazepam (Lorazepam 1 Mg Tab) 1 - 3 mg PO UD PRN; Protocol PRN Reason: EtoH Withdrawal AWSS 6-10+ Stop: 01/12/21 22:41 Melatonin (Melatonin 3 Mg Tab) 3 mg PO HS [facility] Stop: 01/15/21 20:59 Last Admin: 12/18/20 21:28 Dose: 3 mg Documented by: Metoprolol Succinate (Metoprolol Succ 25mg Ext Rel Tab) 25 mg PO QAM [facility] Stop: 01/13/21 13:59 Last Admin: 12/19/20 08:01 Dose: 25 mg Documented by: Miscellaneous (Remove Nicoderm Patch) 1 ea N/A DAILY@0859 [facility] Stop: 01/13/21 08:58 Last Admin: 12/19/20 08:09 Dose: 1 ea Documented by: Miscellaneous (Carbohydrates For Hypoglycemia ) 15 - 30 gm PO UD PRN PRN Reason: Hypoglycemia Treatment Stop: 01/12/21 23:29 Multivitamins/Minerals (Cerovite Adv Formula Tab) 1 tab PO QAM [facility] Stop: 01/13/21 08:59 Last Admin: 12/19/20 08:01 Dose: 1 tab Documented by: Nicotine (Nicotine 21 Mg/24 Hr Tdsy) 21 mg TD DAILY [facility] Stop: 01/12/21 22:41 Last Admin: 12/19/20 08:02 Dose: 21 mg Documented by: Nitroglycerin (Nitroglycerin Sl 0.4 Mg/Tab Tab) 0.4 mg SL UD PRN PRN Reason: Chest Pain Stop: 01/12/21 22:41 Polyethylene Glycol (Polyethylene (Miralax) 17 Gm Pack) 17 gm PO DAILY PRN PRN Reason: Constipation Stop: 01/12/21 22:41 Simvastatin (Simvastatin 80 Mg Tab) 80 mg PO DAILY [facility] Stop: 01/13/21 08:59 Last Admin: 12/19/20 08:01 Dose: 80 mg Documented by: Spironolactone (Spironolactone 12.5 Mg Tab) 12.5 mg PO DAILY [facility] Stop: 01/17/21 10:59 Last Admin: 12/19/20 08:01 Dose: 12.5 mg Documented by: Tamsulosin HCl (Tamsulosin Hcl 0.4 Mg Cap) 0.4 mg PO HS [facility] Stop: 01/13/21 20:59 Last Admin: 12/18/20 21:28 Dose: 0.4 mg Documented by: Warfarin Sodium (Warfarin Sod 7.5 Mg Tab) 7.5 mg PO DAILY@1600 [facility] Stop: 01/18/21 15:59 (1) Atrial fibrillation Atrial fibrillation type: longstanding persistent Qualified Code(s): I48.11 - Longstanding persistent atrial fibrillation (2) CHF (congestive heart failure) Heart failure chronicity: acute Heart failure type: unspecified Qualified Code(s): I50.9 - Heart failure, unspecified
--- NOTE | 2020-12-19 13:23 | Discharge Summary ---
Date of Service December 19, 2020 Admission HPI Per Admitting Provider This is a 70-year-old male with past medical history significant for chronic systolic CHF, EF of around 20%, refused ICD placement in the past, chronic persistent atrial fibrillation, frequent PVCs, hypertension, history of alcoholism, ongoing tobacco abuse, who presents with lower extremity edema. The patient was here in December of 2019 with similar problem and at that time he was treated for acute systolic and diastolic CHF with his diuretics. He was also found at that time to have urinary retention, required Ravi, and was found to have ascites thought to be from hepatic congestion from CHF and he also has COPD with history of smoking. At discharge, supposed to follow up as outpatient. Also had [place] exposure when in the past he was in the . He recently saw cardiology. He seems to have stopped his Entresto due to cost concerns, back on lisinopril. He is no longer on eliquis and now on Coumadin. Seems to have recently stopped his beta kris and was reinstated by cardiology. Declined cardiac catheterization or ICD. The patient says he is taking Lasix 3 times daily. He states he is taking Coumadin, but it was cut in half because he was developing easy bruises. His INR is 1.3 today. Denies any chest pain. States he is getting short of breath in the morning, could not lie down flat. Since the last 3 weeks, his legs are swelling again and he is having decreased urinary output and somewhat loose stools. Whenever he is bending down, he is saying he is having cough. Denies any fever or chills. No headache, dizziness, or blurred visions. No earache. Has some sinus problems. No sore throat. Appetite is okay. No difficulty swallowing. He is ambulating okay without any support at home. He lives with his . States he is still smoking 1-2 packs a day. He says he stopped drinking alcohol heavily,since last 1 year> Now he drinks 7 beers a week and one shot of vodka a week. Currently in the ER, after placing Ravi, he drained 1 L of urine and is feeling better and received one dose of Lasix. He is hemodynamically stable. Talking in full sentences. His BNP is 8300. SARS-CoV-2 PCR negative. The patient says he has not taken COVID vaccine. Admission Exam Per Admitting Provider GENERAL: The patient is of moderate build, not in acute distress. VITAL SIGNS: Temperature 36.7, pulse 105, respiratory rate 22, blood pressure 123/98, oxygen 97% on room air. HEENT: Pupils equal, round and reactive to light. Oral mucosa moist. NECK: No JVD, no neck masses. CARDIOVASCULAR: S1 and S2 heard. Regular rate and rhythm. No murmur, no gallop. RESPIRATORY SYSTEM: Normal AP diameter. No accessory muscle use. Occasional wheezing. Bibasilar crackles heard. ABDOMEN: Soft, bowel sounds present. Ventral hernia seen in the umbilical region. No guarding, no rigidity. CENTRAL NERVOUS SYSTEM: Cranial nerves II-XII grossly intact, nonfocal. EXTREMITIES: Bilateral lower extremity gross edema present. Mild erythema seen. Principal Diagnosis Acute on chronic systolic heart failure Chronic hypoxic respiratory failure due to above Discharge Exam GENERAL: The patient is of moderate build, not in acute distress. HEENT: NC/AT, EOMI, Pupils equal, round and reactive to light. Oral mucosa moist. NECK: No JVD, no neck masses. CARDIOVASCULAR: S1 and S2 heard. irregular. + syst. murmur RESPIRATORY: Normal AP diameter. No accessory muscle use. no wheezing. no crackles ABDOMEN: Soft, bowel sounds present. Ventral hernia seen in the umbilical region. No guarding, no rigidity. NEURO: Alert and oriented x3 and answering questions appropriately. No facial asymmetry, speech fluent, moves extremities EXTREMITIES: 1+ Bilateral lower extremity edema (improved). Mild erythema seen. Discharge Data Allergies Allergy/AdvReac Type Severity Reaction Status Date / Time No Known Allergies Allergy Unverified 12/13/20 19:25 Consultations 12/13/20 20:22 ED Decision to Admit Stat 12/14/20 08:00 Consult Cardiology Routine Consult Urology Routine Ordered Studies 12/13/20 18:49 US venous doppler LE BI Stat IMPRESSION: No DVT within the right or left lower extremity. Hospital Course (1) CHF (congestive heart failure): This is a 70-year-old male, who presents with worsening lower extremity edema and found to be in [id number] systolic congestive heart failure. 1. Subwe-uc-[id number] systolic congestive heart failure, last ejection fraction was around 20%. Previously declined ICD, now considering it. Received IV Lasix 40 mg in the ER. Continued on Iv lasix 40 bid, then switched to PO lasix 40 BID - will DC on furosemide 40 daily Continued home Coreg on admission initially. Switched to metoprolol succinate per cardiology. Daily weights, I's and O's. Echocardiogram - moderately dilated LV chamber size with global wall thinning. Severely reduced LV systolic function with severe global hypokinesis, EF less than 15%. Grade 3 diastolic dysfunction consistent with restrictive physiology. Dilated RV chamber size with reduced systolic function. Dilated mitral annulus with poor leaflet coaptation. Moderate mitral regurg with a centrally directed jet. Moderate tricuspid regurg. Severe biatrial enlargement. Compared to pre vious study of January 2020, LV systolic function has further declined. RV systolic failure is now present. Cardiology consulted. -lisinopril 10 mg, and also started spironolactone 12.5 mg daily Cont. to monitor in the tele floor. 2. History of diabetes: Holding metformin and glipizide. Placed on insulin sliding scale. Current HbA1c 7.2% Follow the blood sugars while inpt. 3. Hyperlipidemia: Continue statin. 4. History of atrial fibrillation: On Coreg at home, now switched to metoprolol. At home currently on Coumadin 2.5 mg p.o. daily. Increased to 5 mg daily. Now on 10 mg as INR still subtherapeutic. He says this has been cut in half because of his easy bruising . O admission INR 1.3 Today, his INR is 1.5 He was given 2.5 of Coumadin on admission and placed on IV heparin low dose bridging and follow PT/INR and adjust the Coumadin dosing. We will discharge on 7.5 mg of warfarin daily, patient to closely follow-up with anticoagulation clinic. 5. Hypertension: Continued his Coreg and lisinopril initially. Now on meto prolol, lisinopril. Monitor the blood pressure. 6. History of alcoholism: He says he is currently drinking only 7 beers a week and one shot of vodka a week. Placed him on gabapentin protocol and Ativan p.r.n. Continue his home alprazolam p.o. t.i.d. p.r.n. Reports feeling foggy after taking gabapentin, will discontinue now 7. History of ongoing tobacco abuse: Nicotine patch. 8. History of possible chronic obstructive pulmonary disease: Will place on nebs p.r.n. 9. Urinary retention: Currently status post Ravi. Consulted urology for further recommendations. PSA ordered - 2.8 Will need Ravi for 10-14 days, follow up w/ urology as outpt. 10. History of lung nodule, 5 mm, left upper lobe, in the last admission. Needs to follow up with a CT chest. 11. History of [place] exposure as per the patient. Disposition: Admit to tele floor. PT, OT prior to discharge. Follow up with cardiology, urology and PCP. 2 step prior to DC -patient will need 3L of O2 with ambulation Total Time Total Time Spent Total Time Spent (In Minutes): 40 Total Time Includes: Examination of the Patient, Discharge Planning, Medication Reconciliation and Communication With Other Providers Discharge Plan Discharge Items Patient Disposition: Home - Self-Care Reason For Visit: EDEMA Discharge Diagnosis: Acute on chronic systolic heart failure Chronic hypoxic respiratory failure due to above Condition on Discharge: Fair Activity: Per Instructions section Non-emergency contact: Primary Care Provider and Ophthalmic Technician Call non-emergency contact if: you have any medication questions and your symptoms worsen Follow-up/Referrals: [facility] [Other] (The Urology office will call you with an appointment date. ) Anders Piper [Primary Care Provider] - 12/25/20 11:00 am Diet: Heart Healthy and Low Sodium (2gm) Addtl Attending Provider Instructions: Call your Primary Care doctor if any of the following symptoms or problems start or get worse: * Shortness of breath or difficulty breathing * Wake up at night short of breath * Chest pain * Cough * Swelling of your hands, feet, or legs * More fatigued or tired with your normal activity * Palpitations - sudden fast heart beats WEIGHT * Weigh yourself every morning after using the bathroom. * Use the same scale. * Wear the same amount of clothing. * Write your weight down on a chart. * Call your Primary Care doctor if you gain more than 2-3 pounds in 1-2 days. MEDICATIONS * Use this discharge instruction sheet for medication instructions. * Take your medications at the time your doctor ordered. * Do not skip a dose of your medicines. * If you miss a dose of medicine, take it as soon as possible, but DO NOT DOUBLE A DOSE. * Read your medicine information when you get home. * Know all of the side effects of your medicine. If in doubt, ask your pharmacist * Call your Primary Care doctor's office if you have any side effects. * Be sure all of your doctors know what medicine and herbs you take (including cold, flu, and herbal medicine). Take the following with you to your follow-up doctor appointments: * Weight Chart * Medication List * List of questions Do not drink excessive alcohol, beer or wine. Addtl Awning Frame Maker Provider Instructions: Follow-up with your primary care doctor, parish worker, and urology. Your medications were changed. Stop taking carvedilol and instead take metoprolol, as prescribed. Take furosemide only once a day instead of 3 times a day. In addition, take spironolactone and lisinopril, (these are also water pills). Your INR was not therapeutic, and therefore your warfarin level was increased to 7.5 mg daily. You will be contacted by anticoagulation clinic, to further manage your warfarin dose. It was noted that you need oxygen when you ambulate, use 3L/ min with ambulation. Nicotine patches were also sent to your pharmacy, it is recommended that you quit smoking. You can also call 1 [employer], the free smoking cessation line. Tamsulosin was also sent to your pharmacy, this is to help with your urinary retention. Make sure to monitor your weight daily, and avoid salty foods and excessive drinking of fluids. Pending Studies at Discharge: No Stand-Alone Forms: [facility], Smoking Cessation Medications and DC Order Prescriptions: New warfarin [Jantoven] 7.5 mg Tablet 7.5 mg PO DAILY@1600 Qty: 20 RF: 0 nicotine [Nicoderm CQ] 21 mg/24 hr Patch 24 Hour 21 mg transdermal DAILY Qty: 14 RF: 0 tamsulosin 0.4 mg Capsule 0.4 mg PO HS Qty: 30 RF: 0 lisinopril 10 mg Tablet 10 mg PO DAILY Qty: 30 RF: 0 metoprolol succinate 25 mg Tablet Extended Release 24 Hr 25 mg PO QAM Qty: 30 RF: 0 spironolactone 25 mg Tablet 12.5 mg PO DAILY Qty: 30 RF: 0 Continued alprazolam 1 mg tablet 1 mg PO TID PRN (Reason: Anxiety) RF: 0 glipizide 10 mg tablet 10 mg PO DAILY RF: 0 simvastatin 80 mg tablet 80 mg PO DAILY RF: 0 metformin 500 mg tablet 500 mg PO DAILY RF: 0 Changed furosemide [Lasix] 40 mg tablet 40 mg PO QAM Qty: 30 RF: 0 Discontinued lisinopril 5 mg tablet 5 mg PO DAILY RF: 0 warfarin 2.5 mg tablet 2.5 mg PO DAILY RF: 0 carvedilol 3.125 mg tablet 3.125 mg PO BID RF: 0 Discharge Orders: Discharge Order (Routine); Ordered 12/19/20 Ordered By: Scooter Hererra/Other Patient Handouts: Managing Type 2 Diabetes, A1C Admission Data Admit Date/Time: 12/13/20 21:48 Attending Provider: Scooter Mathews Admit Provider: Pérez Castanon Primary Care Provider: Anders Piper Other Providers: Pérez Castanon ; Owen Cordero ; Yousif Bang ; Tim Arriaga ; Nicho Ramachandran ; Edwin Vazquez ; Bhupinder Hicks ; Nirali Alfaro ; Toyin Cruz ; Olga Carmen ; James Newman ; Mariano Cordova ; Owen Ledesma ; Abel Gutierrez ; Madison Chapa ; Roland Tang ; Gricelda Mabry ; Lisa Calixto ; Mellisa Morales ; Nicho Motley ; Maite Garcia ; Jessica Morales
[2020-12-19] MEDS ORDERED: WARFARIN SOD 7.5 MG TAB PO SCH (16:00)
[2020-12-20] MEDS ORDERED: FUROSEMIDE 40 MG TAB PO SCH (09:00)
== END 2020-12-19 15:30 | disposition home or self-care (01) | DRG 292 ==
LOC: ED 15:40 → 2S 21:48

== ENCOUNTER 2021-04-19 05:18 | Observation (INO) ==
--- NOTE | 2021-02-23 11:07 | Anesthesiology Consultation ---
Date of Service February 23, 2021 Assessment & Plan (1) Encounter for pre-operative examination: Chart Review Chart Review: Acceptable Risk for Surgery and Patient NOT seen in Pre Admission Testing - Check coags AM DOS - Check BSG AM DOS. Will leave to anesthesiologist discretion DOS if repeat CXR needed -Discussed case with Dr. Perez- aware of EF - has had EP and cardio evaluation- both aware of upcoming TURP and feel patient should proceed- pt is a high risk for complications Per nursing assessment 02/21/2021, patient denies any recent travel. No known Covid infection in the past 90 days. Patient is vaccinated for Covid. No known Covid positive contacts or Covid related symptoms. Preop Covid test 02/22/21= negative. Covid test will be 5 days old by DOS- possible inpatient- will order [facility] for DOS. Patient seen by electrophysiology 02/23/2021 = patient referred to EP due to ICM. Patient hospitalized December 2020 due to acute HF and his EF was found to be severely low. Patient having TURP next weekhas indwelling Ravi catheter. 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 Patient would eventually benefit from ICD; currently only a single-chamber as he is in permanent AF and his QRS is narrow. Howeveragree with partners that the risk of possible endocarditis is high right now given his indwelling Ravi and upcoming TURPwo uld hold off on scheduling at this time. Patient seen by cardiology 02/14/2021 = seen for preoperative cardiovascular examinationscheduled for TURP on 02/27/2021. Patient with recent hospitalization with marked anasarca, known severe diffuse cardiomyopathy of unknown etiology, possibly alcohol induced versus other. EF less than 15%. Digoxin 125 mcg added on Friday and Fridays. " Patient is a high surgical risk. Further cardiac evaluation/intervention would not likely reduce his preoperative risk. Recommendation hold anticoagulation (Coumadin) 5 days prior to procedure without Lovenox bridge. Risk and benefits discussed." Continue metoprolol and digoxin without interruption. Hold lisinopril, Lasix, and spironolactone morning of surgery. Electrophysiology consultation is scheduled on 02/23/2021. We will repeat echo June 2021. History Surgery Operation Date: 02/27/21 07:30 Proposed Procedures p Transurethral Resection Prostate - Abel Gutierrez MD Height/Weight Height: 6 ft Weight: 79.379 kg Allergies Allergy/AdvReac Type Severity Reaction Status Date / Time No Known Allergies Allergy Unverified 01/31/21 11:46 Medications Home Medications Medication Instructions Recorded Confirmed Last Taken alprazolam 1 mg tablet 1 mg PO TID PRN 12/11/19 02/21/21 Unknown glipizide 10 mg tablet 10 mg PO QAM 12/11/19 02/21/21 Unknown simvastatin 80 mg tablet 80 mg PO QAM 12/11/19 02/21/21 Unknown metformin 500 mg tablet 500 mg PO QAM 12/13/20 02/21/21 Unknown furosemide 40 mg tablet (Lasix) 40 mg PO QAM #30 tab 12/19/20 02/21/21 Unknown metoprolol succinate 25 mg 25 mg PO QAM #30 tab 12/19/20 02/21/21 Unknown tablet,extended release 24 hr nicotine 21 mg/24 hr daily 21 mg TRANSDERMAL DAILY #14 ea 12/19/20 02/21/21 Unknown transdermal patch (Nicoderm CQ) tamsulosin 0.4 mg capsule 0.4 mg PO HS #30 cap 12/19/20 02/21/21 Unknown warfarin 7.5 mg tablet (Jantoven) 7.5 mg PO DAILY@1600 #20 tab 12/19/20 02/21/21 Unknown finasteride 5 mg tablet 5 mg PO QAM 02/21/21 02/21/21 Unknown lisinopril 10 mg tablet 10 mg PO QAM 02/21/21 02/21/21 Unknown spironolactone 25 mg tablet 12.5 mg PO QAM 02/21/21 02/21/21 Unknown Past Medical History Medical History Alcoholism quit 4 months ago and sees a psychiatrist Ascites Atrial fibrillation On Coumadin Benign localized prostatic hyperplasia with lower urinary tract symptoms (LUTS) Ravi catheter in place Cardiomyopathy Severe diffuse CM (ischemic vs non ischemic) with severe LV systolic dysfunction per cardio records EF<15% To see Dr. 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 Lung nodule Mitral regurgitation MVP with moderate MR per 12/15/20 ECHO Pedal edema Pleural effusion, bilateral was in hospital 12/2020 Renal insufficiency Type 2 diabetes mellitus Past Surgical History Surgical History History of surgery on wrist Hx of colonoscopy Hx of hernia repair Hx of tonsillectomy Social History Smoking Status: Former smoker tobacco type: cigarettes Smoking cigarettes per day: 20 Smoking End Date: 4 months Hx Alcohol Use: No (quit 4 months ago) Alcohol type: beer alcohol intake frequency: 0-2 drinks per day Hx Substance Use: No substance use type: does not use Lab Results Anesthesia Preop Results Results Anesthesia Widget: WBC 6.80 K/uL (4.8-10.8) 02/22/21 Hgb 16.0 g/dL (14.0-18.0) 02/22/21 Hct 49.0 % (42-52) 02/22/21 Plt 245 K/uL (130-400) 02/22/21 Na 135 mmol/L (136-145) L 02/22/21 K 3.8 mmol/L (3.5-5.1) 02/22/21 Cl 98 mmol/L (98-107) 02/22/21 CO2 29 mmol/L (21-32) 02/22/21 BUN 39 mg/dl (7-18) H 02/22/21 Creat 1.50 mg/dl (0.6-1.4) H 02/22/21 Glucose Level 146 mg/dl (70-99) H 02/22/21 Urine Color Yellow 02/22/21 Urine Appearance Cloudy (Clear) A 02/22/21 Urine pH 6.5 (4.5-7.5) 02/22/21 Urine Specific [place] 1.010 (1.000-1.030) 02/22/21 Urine Protein Negative (Negative) 02/22/21 Urine Glucose (UA) Negative (Negative) 02/22/21 Urine Ketones Negative (Negative) 02/22/21 Urine Blood Negative (Negative) 02/22/21 Urine Nitrite Positive (Negative) A 02/22/21 Urine Bilirubin Negative (Negative) 02/22/21 Urine Urobilinogen Negative (Negative) 02/22/21 Urine Leukocyte Esterase 2+ (Negative) H 02/22/21 Urine WBC (Auto) >30 /hpf (0-5) H 02/22/21 Urine RBC (Auto) 0-4 /hpf (0-4) 02/22/21 Urine Hyaline Casts (Auto) 1-5 /lpf (0-5) 02/22/21 Urine Epithelial Cells (Auto) 10-20 /lpf (0-5) H 02/22/21 Urine Bacteria (Auto) 2+ (Negative) H 02/22/21 Testing Electrocardiogram Date: 02/14/21 Atrial fibrillation with rapid ventricular response with premature ventricular or a aberrantly conducted complexes at 102 bpm. Incomplete left bundle branch block. ST and T wave abnormality, consider inferior lateral ischemia. When compared to EKG from December 26riteria for septal and lateral infarct are no longer present per cardiology. (Patient cleared for surgery by cardiology 02/14/2021) Chest X-Ray Date: 12/13/20 1 view CXR No pneumothorax. Small right pleural effusion persists. The heart remains enlarged. Bibasilar densities are also unchanged. No evidence for pulmonary edema. IMPRESSION: No change in the small right pleural effusion and right basilar density. This favors atelectasis. Stable cardiomegaly. Echocardiogram Date: 12/14/20 Moderately dilated LV chamber size with global wall thickening. Severely reduced LV systolic function with severe global hypokinesis, EF less than 15%. Grade 3 diastolic dysfunction consistent with restrictive physiology. Dilated RV chamber size with reduced systolic function. Dilated mitral annulus with poor leaflet coaptation. Moderate mitral regurgitation with centrally directed jet. Moderate TR. Severe biatrial enlargement. Compared to previous study from January 2020LV systolic function has further decline. RV systolic failure is not present.
[~2021-04-19 05:18] MED LIST: CIPROFLOXACIN / D5W 400 MG/200 ML BAG IV SCH; LACTATED RINGER'S 1,000 ML IV SCH; LR 15ML/HR IV SCH
[2021-04-19] MEDS ORDERED: LACTATED RINGER'S 1,000 ML IV SCH ×2 (06:00→11:02)
[2021-04-19 06:50] LABS: INR 1.2 (0.9-1.1); Partial Thromboplastin Ratio 1.1; Partial Thromboplastin Time 29.5 Seconds (21.0-31.0); Prothrombin Time 11.8 Seconds (9.0-12.0)
--- NOTE | 2021-04-19 08:23 | History & Physical Report ---
Date of Service April 19, 2021 Assessment & Plan (1) Acute urinary retention: Plan: urinary retention max meds failed numerous voiding trials severe cardiac disease after a lengthy review of his personal risks, we have settled on moving forward with surgery hope to achieve enough resection to allow spontaneous voiding History of Present Illness Primary Care Provider: Anders Piper 71y/o male w/ urinary retention in the setting of severe cardiac disease - very low EF - he is very understanding of the high risk nature of this surgery - he has had a very andre conversation with cardiology, myself, and anesthesia and has refused transfer to a tertiary facility but very much wants surgery here to attempt to alleviate his urinary retention - he understands that we will attempt this with spinal/saddle block rather than general anesthesia Allergies Allergy/AdvReac Type Severity Reaction Status Date / Time No Known Allergies Allergy Verified 04/19/21 06:21 Home Medications Medication Instructions Recorded Confirmed Type alprazolam 1 mg tablet 1 mg PO TID PRN 12/11/19 04/19/21 History glipizide 10 mg tablet 10 mg PO QAM 12/11/19 04/19/21 History simvastatin 80 mg tablet 80 mg PO QAM 12/11/19 04/19/21 History metformin 500 mg tablet 500 mg PO QAM 12/13/20 04/19/21 History furosemide 40 mg tablet (Lasix) 40 mg PO QAM #30 tab 12/19/20 04/19/21 Rx metoprolol succinate 25 mg 25 mg PO QAM #30 tab 12/19/20 04/19/21 Rx tablet,extended release 24 hr nicotine 21 mg/24 hr daily 21 mg TRANSDERMAL DAILY #14 ea 12/19/20 04/19/21 Rx transdermal patch (Nicoderm CQ) tamsulosin 0.4 mg capsule 0.4 mg PO HS #30 cap 12/19/20 04/19/21 Rx warfarin 7.5 mg tablet (Jantoven) 7.5 mg PO DAILY@1600 #20 tab 12/19/20 04/19/21 Rx lisinopril 10 mg tablet 10 mg PO QAM 02/21/21 04/19/21 History spironolactone 25 mg tablet 12.5 mg PO QAM 02/21/21 04/19/21 History finasteride 5 mg tablet 5 mg PO QAM #30 tab 03/14/21 04/19/21 Rx levofloxacin 500 mg tablet 500 mg PO DAILY 5 Days #5 tab 04/13/21 04/19/21 Rx zolpidem 5 mg tablet (Ambien) 5 mg PO HS PRN 04/19/21 04/19/21 History Past Med/Surg History Medical History Alcoholism quit 4 months ago and sees a psychiatrist Ascites Atrial fibrillation On Coumadin Benign localized prostatic hyperplasia with lower urinary tract symptoms (LUTS) Ravi catheter in place Cardiomyopathy Severe diffuse CM (ischemic vs non ischemic) with severe LV systolic dysfunction per cardio records EF<15% To see Dr. 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 Lung nodule Mitral regurgitation MVP with moderate MR per 12/15/20 ECHO Pedal edema Pleural effusion, bilateral was in hospital 12/2020 Renal insufficiency Type 2 diabetes mellitus Surgical History History of surgery on wrist Hx of colonoscopy Hx of hernia repair Hx of tonsillectomy Social History Smoking Status: Current every day smoker Tobacco Type: Cigarettes Cigarettes Per Day: 20; Smoking End Date: 4 months; Second Hand Exposure: Yes; Tobacco Cessation Education Requested by Patient: No Hx Alcohol Use: Yes Alcohol type: beer Hx Substance Use: No Preferred Language: Pashto Communication Ability: Effective Car 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 Required: No Beliefs That Will Affect Care: None marital status: Current Living Situation: Spouse Other Information That Helps Us Care for You: No Feels Safe at Home: Yes Safety Concerns: Feels Safe At This Time Assistive Devices: None Physical Exam Constitutional: well developed and well nourished Neck: neck nontender Respiratory: normal respiratory effort; no respiratory distress and does not use accessory muscles Cardiovascular: Rate/Rhythm: regular rate Vessels: radial pulses present Extremities: no edema Gastrointestinal (Abdomen): Percussion/Palpation: abdomen soft (large umbilical hernia); abdomen nontender and no guarding Musculoskeletal: Head/Neck/Chest: normocephalic and head atraumatic Extremities: extremities normal to inspection Skin: no rashes and no lesions Trauma: no evidence of skin trauma Neurologic: awake; not obtunded Speech / Cognition: normal speech Motor/Sensory: no tremor Psychiatric: Orientation: alert and oriented x 3 Genitourinary: no CVA tenderness Lymphatic: no lymphadenopathy Results & Data ([facility]) Vital Signs (Past 12 Hours) Vital Signs Temp Pulse Resp BP Pulse Ox 04/19/21 06:34 36.7 C 44 L 20 135/74 98
[2021-04-19] MEDS ORDERED: NOREPINEPHRINE BITARTRATE 1 MG/ML 4 ML VIAL IV ONE (08:30)
[2021-04-19] MEDS ORDERED: MIDAZOLAM HCL 1 MG/ML 2ML VIAL ONE ×2 (08:32→09:38)
[2021-04-19] MEDS: CIPROFLOXACIN / D5W 400 MG/200 ML BAG IV SCH ×3 (08:41→20:11)
[2021-04-19] MEDS ORDERED: fentaNYL citrate 100 MCG/2 ML VIAL ONE (09:01)
[2021-04-19] MEDS ORDERED: SODIUM CHLORIDE 0.9% INJ 10 ML VIAL ONE (10:16)
--- NOTE | 2021-04-19 10:28 | Operative Report ---
PG Post Operative Report Pre & Post Diagnosis Operation Date: 02/27/21 07:15 <No data on this case meets the specified criteria> Operation Date: 04/05/21 11:50 <No data on this case meets the specified criteria> Operation Date: 04/19/21 08:00 Pre-Op Diagnosis: Benign Prostate Hypertrophy, Urinary Retention Post-Op Diagnosis: Benign Prostate Hypertrophy, Urinary Retention I identified the patient and participated in the time-out.: Yes Procedure Operation Date: 02/27/21 07:15 <No data on this case meets the specified criteria> Operation Date: 04/05/21 11:50 <No data on this case meets the specified criteria> Operation Date: 04/19/21 08:00 Actual Procedures p Transurethral Resection of the Prostate(Not Applicable) - Abel Gutierrez MD Surgeon Eric Gutierrez MD Shoe Shiner none Estimated Blood Loss 0 Findings Consistent with Post-Op Diagnosis Specimens none Description of Procedure The patient was identified in the preoperative holding area, appropriate informed consents were reviewed and completed and the patient was transferred to the operative suite. Upon arrival, appropriate antibiotics and anesthesia were administered and the patient was placed in dorsal lithotomy position and prepped and draped in sterile fashion. Of note, he has a significant cardiac history and we had a very lengthy discussion before surgery today I discussed the specific risks of today's surgery and the recovery time. He had a similar conversation with anesthesia and we elected to perform this procedure under spinal anesthesia to avoid stressing his heart more than necessary. After receiving a saddle block we began the case. I began by passing a 27 Thai resectoscope with 30 degree lens. Inspection revealed a healthy-appearing urethra. He has a moderately enlarged prostate with predominantly lateral lobe hypertrophy and a somewhat elevated bladder neck. His bladder is quite large. There was no mucosal disease. Following my inspection I used a button electrode to resect some of the prostate tissue. I b aldo on the left lateral lobe followed by the right lateral lobe. I incised the bladder neck at 5 and 7:00 and then resected the intervening segment of tissue between the 2. He had a bit of redundant anterior tissue which I resected and I concluded my resection by trimming the apical tissue. The prostatic fossa was widely patent at the conclusion of the case. Hemostasis was excellent. I withd rew the scope leaving the bladder full. With gentle suprapubic pressure he generated a very strong stream. I did insert a new 20 Thai Ravi catheter and inflated the balloon with 20 cc of sterile water. The case was concluded and he was taken to the PACU. He tolerated the procedure extremely well and reported no discomfort throughout the case. He will be admitted and observed overnight. I attest to the content of the Intraoperative Record and any orders documented therein. Any exceptions are noted below.
[2021-04-19] MEDS ORDERED: ONDANSETRON INJ 2 MG/ML 2 ML VIAL IV PRN ×2 (10:43→11:02)
[2021-04-19] MEDS ORDERED: ATROPINE SULFATE 0.1 MG/ML 10ML SYR IV PRN (10:43)
[2021-04-19] MEDS ORDERED: fentaNYL citrate 100 MCG/2 ML VIAL IV PRN (10:43)
[2021-04-19] MEDS ORDERED: ePHEDrine sulfate 50 MG/ML AMP IV PRN (10:43)
--- NOTE | 2021-04-19 10:45 | Procedure Note ---
Procedure Note Date of Service April 19, 2021 Note Radial arterial line placed in OR 5 in preparation for TURP with Dr. Gutierrez. Left wrist prepped with chlorhexidine and draped with sterile towels. Site infiltrated with 0.5 cc of 1% lidocaine. 20 G angiocath placed under sterile technique utilizing sterile gloves, surgical hats and masks. Catheter threaded using seldinger technique with return of pulsatile, bright red blood. Site covered with occlusive dressing and taped in place. Waveform consistent with correct arterial placement. After placement, fingers of procedural hand had normal perfusion. Patient tolerated procedure well without complications. Niru Hay MD, PhD Anesthesiologist Coding
[2021-04-19] MEDS ORDERED: ZOLPIDEM TARTRATE 5 MG TAB PO PRN (11:02)
[2021-04-19] MEDS ORDERED: ACETAMINOPHEN 325 MG TAB PO PRN (11:02)
[2021-04-19] MEDS ORDERED: ALPRAZolam 0.5 MG TABLET PO PRN (11:02)
[2021-04-19] MEDS ORDERED: PHARMACY GLYCEMIC MGMT CONSULT PRN (11:02)
--- NOTE | 2021-04-19 11:23 | Anesthesiology Progress Note ---
Date of Service April 19, 2021 Anesthesia Post Procedure Vital Signs Vital Signs: Temp Pulse Pulse Resp BP Pulse Ox 04/19/21 11:10 78 18 111/74 99 04/19/21 10:55 37.0 C 84 17 115/74 98 04/19/21 10:45 82 16 112/74 96 04/19/21 10:35 85 20 122/62 96 04/19/21 10:25 79 20 113/61 95 04/19/21 10:15 97 H 15 106/63 100 04/19/21 10:06 36.2 C L 86 24 109/60 95 04/19/21 06:34 36.7 C 44 L 20 135/74 98 Transfer of Care Handoff Completed per policy Notes Mental Status: alert / awake / arousable and participated in evaluation Nausea / Vomiting: adequately controlled Pain: adequately controlled Airway Patency, RR, SpO2: stable & adequate BP & HR: stable & adequate Hydration State: stable & adequate Neuraxial Anesthesia: was administered and sensory block is resolving Anesthetic Complications: no major complications apparent and Pt Satisfied with anesthetic care
[2021-04-19] MEDS ORDERED: GLUCOSE 40% GEL 15 GM TUBE PO PRN (12:15)
[2021-04-19] MEDS ORDERED: CARBOHYDRATES FOR HYPOGLYCEMIA PO PRN (12:15)
[2021-04-19] MEDS ORDERED: GLUCOSE 10 TABS/TUBE PO PRN (12:15)
[2021-04-19] MEDS ORDERED: GLUCAGON FOR INJ 1 MG VIAL SQ PRN (12:15)
[2021-04-19] MEDS ORDERED: DEXTROSE 50% 50 ML SYRINGE IV PRN (12:15)
[2021-04-19] MEDS: INSULIN ASPART 100 UNITS/ML 3 ML PEN SC SCH ×3 (14:06→20:11)
--- NOTE | 2021-04-19 15:50 | Hospitalist Consultation ---
Date of Consultation April 19, 2021 Assessment & Plan (1) Benign localized prostatic hyperplasia with lower urinary tract symptoms (LUTS): POD #0 TURP - feeling well in PACU. No specific complaints. Ravi in place. - Pain control, Ravi per primary team (2) Hypertension: Continue home meds (3) Atrial fibrillation: On chronic anticoagulation - Spoke with surgeon - will plan to resume Coumadin tomorrow (plan 11.25 mg tomorrow, 11.25 mg 04/21, 7.5 mg 04/22, then follow pre-op dosing schedule) - Continue digoxin and beta-kris (4) Type 2 diabetes mellitus: - Pharmacy was consulted for glycemic management (5) CKD (chronic kidney disease) stage 3, GFR 30-59 ml/min: Labs in AM (6) CHF (congestive heart failure): Clarified furosemide dosing with pt - he was taking furosemide 40 mg tab 2 tab BID but recently decreased to 2 tab in AM and 1 tab in PM due to paraesth esias in feet with higher dose. Will continue same dose here. Pt was seen and reviewed with collaborating physician, Dr. Cyr. Plan of care discussed and as outlined above. Thank you for this consultation. We will continue to follow this patient with you. A member of the [facility]ist team can be reached 30/12 via [employer]. Please dont hesitate to reach out with questions. Ariane Sheridan PA-C Supervising Physician Co-Signing Physician Notes I have seen and examined the patient and have discussed the case with the provider above. I agree with the assessment and plan as stated. 71 yo M with diffuse cardiomyopathy of uncertain etiology with an EF 15% presented today for TURP to alleviate his ongoing urinary issues. He tolerated the spinal anesthesia without issue and feels well post-operatively. Denies pain. Euvolemic on exam, NAD, WNWD. Diminished heart sounds without m/g/r, clear lungs to auscultation. Abdomen is soft, NTND. Holding warfarin per surgeon's request, will restart when able. He is diabetic and on insulin coverage with glucose at goal. Agree with current therapy. Finasteride and tamsulosin not ordered-defer to urology. Plan for dc home in am . Cont to monitor on telemetry overnight. Thank you for this consultation. DO Ger History of Present Illness Reason for Consultation: Post-operative medical management Requesting Physician: Eric Gutierrez MD Attending Physician: Eric Gutierrez MD History of Present Illness This is a 71 y/o male with a PMH of DM2, chronic systolic CHF, EF <15%, plan for recheck ECHO in Jun 2021 to reassess EF, chronic persistent atrial fibrillation, frequent PVCs, hypertension, CKD3, BPH w/ urinary retention, anxiety, depression, history of alcoholism, ongoing tobacco abuse who underwent TURP today by Dr. Gutierrez and for whom we have been consulted for post-operative medical management. Pt is currently seen in PACU and reports that he is feeling great. He quit smoking and stopped drinking alcohol four months ago and reports that his health has improved since doing so. His diuretics were recently adjust from 80 mg BID to 80 mg in AM, 40 mg in PM due to episodes of "pins and needles" in his LE at the higher dose, improved at current dosing and seems to be preventing fluid overload. He denies chest pain, palpitations, SOB, wheezing, fevers, chills, N/V. Ravi in place post-op. He follows with the Coumadin clinic and received recommendations for management of anticoagulation in the [place]- and post-operative period. Allergies Allergy/AdvReac Type Severity Reaction Status Date / Time No Known Allergies Allergy Verified 04/19/21 06:21 Home Medications Medication Instructions Recorded Confirmed Type alprazolam 1 mg tablet 1 mg PO TID PRN 12/11/19 04/19/21 History glipizide 10 mg tablet 10 mg PO QAM 12/11/19 04/19/21 History metformin 500 mg tablet 500 mg PO QAM 12/13/20 04/19/21 History tamsulosin 0.4 mg capsule 0.4 mg PO HS #30 cap 12/19/20 04/19/21 Rx lisinopril 10 mg tablet 10 mg PO QAM 02/21/21 04/19/21 History spironolactone 25 mg tablet 12.5 mg PO QAM 02/21/21 04/19/21 History finasteride 5 mg tablet 5 mg PO QAM #30 tab 03/14/21 04/19/21 Rx levofloxacin 500 mg tablet 500 mg PO DAILY 5 Days #5 tab 04/13/21 04/19/21 Rx atorvastatin 80 mg tablet 80 mg PO DAILY 04/19/21 04/19/21 History digoxin 125 mcg (0.125 mg) tablet 125 mcg PO 3XWK 04/19/21 04/19/21 History furosemide 40 mg tablet 40 mg PO QPM 04/19/21 04/19/21 History furosemide 40 mg tablet 80 mg PO QAM 04/19/21 04/19/21 History metoprolol succinate 50 mg 25 mg PO BID 04/19/21 04/19/21 History tablet,extended release 24 hr nicotine 14 mg/24 hr daily 14 mg TRANSDERMAL DAILY 04/19/21 04/19/21 History transdermal patch warfarin 7.5 mg tablet See Rx Instructions .ROUTE .COMPLEX 04/19/21 04/19/21 History zolpidem 5 mg tablet (Ambien) 5 mg PO HS PRN 04/19/21 04/19/21 History Patient History Medical History (Updated 04/19/21 @ 16:27 by Emily Sheridan PA-C) Alcoholism quit 4 months ago and sees a psychiatrist Ascites Atrial fibrillation On Coumadin Benign localized prostatic hyperplasia with lower urinary tract symptoms (LUTS) Ravi catheter in place Cardiomyopathy Severe diffuse CM (ischemic vs non ischemic) with severe LV systolic dysfunction per cardio records EF<15% To see Dr. 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) use of anticoagulants Lung nodule Mitral regurgitation MVP with moderate MR per 12/15/20 ECHO Pedal edema Pleural effusion, bilateral was in hospital 12/2020 Renal insufficiency Type 2 diabetes mellitus Surgical History History of surgery on wrist Hx of colonoscopy Hx of hernia repair Hx of tonsillectomy Social History (Updated 04/19/21 @ 16:21 by Emily Sheridan PA-C) Smoking Status: Former smoker Tobacco Type: Cigarettes Smoking End Date: November 2020; Second Hand Exposure: Yes; Tobacco Cessation Education Requested by Patient: No Hx Alcohol Use: Yes Alcohol type: beer Hx Substance Use: No Preferred Language: Finnish Communication Ability: Effective Helpdesk Specialist Required: No Beliefs That Will Affect Care: None marital status: Current Living Situation: Spouse Other Information That Helps Us Care for You: No Feels Safe at Home: Yes Safety Concerns: Feels Safe At This Time Assistive Devices: None Review of Systems Review of Systems: All systems reviewed & are unremarkable except as noted in HPI & below Constitutional: no fever, no chills, no sweats and no fatigue Eyes: no diplopia and no worsening vision Ear, Nose, Mouth, Throat: no nasal congestion and no sore throat Respiratory: no cough, no chest congestion, no dyspnea and no wheezing Cardiovascular: no chest pain, no palpitations, no lightheadedness, no syncope and no edema Gastrointestinal: no abdominal pain, no nausea, no vomiting and no diarrhea/loose stools Genitourinary: + as per Subjective / HPI Musculoskeletal: no back pain and no neck pain Integumentary: no rash Neurologic: + paresthesia; no localized weakness, no dizziness and no headache(s) Physical Exam Constitutional: WD/WN, vitals as above no acute distress Eyes: + anicteric sclerae ENMT: external ear and nose normal, oropharynx normal Neck: trachea midline Respiratory: no respiratory distress and no labored breathing Auscultation: lungs clear to auscultation bilaterally; no rales, no rhonchi and no wheezes Cardiovascular: Rate/Rhythm: + irregularly irregular Heart Sounds: + murmur Vessels: dorsalis pedis pulses present and radial pulses present Extremities: no calf tenderness and no pedal edema Gastrointestinal (Abdomen): Inspection/Auscultation: normal bowel sounds Percussion/Palpation: + hernia (right abdomen, non-tender); abdomen nontender Musculoskeletal: Head/Neck/Chest: normocephalic, head atraumatic and neck supple Skin: no rashes and no jaundice Neurologic: moves all extremities; no focal motor deficits Psychiatric: A+Ox3, euthymic affect Genitourinary: Ravi in place - pink-red urine Results & Data Results & Data ([facility]) Vital Signs (Past 12 Hours) Vital Signs Temp Pulse Pulse Resp BP Pulse Ox 04/19/21 15:01 79 19 117/72 97 04/19/21 14:10 36.2 C L 80 18 116/74 98 04/19/21 13:10 82 21 94/63 L 95 04/19/21 12:40 86 22 93/61 L 94 04/19/21 12:10 84 20 115/63 97 04/19/21 11:55 87 14 122/66 96 04/19/21 11:40 89 20 124/72 97 04/19/21 11:25 88 20 118/72 99 04/19/21 11:10 78 18 111/74 99 04/19/21 10:55 37.0 C 84 17 115/74 98 04/19/21 10:45 82 16 112/74 96 04/19/21 10:35 85 20 122/62 96 04/19/21 10:25 79 20 113/61 95 04/19/21 10:15 97 H 15 106/63 100 04/19/21 10:06 36.2 C L 86 24 109/60 95 04/19/21 06:34 36.7 C 44 L 20 135/74 98 Laboratory Results 04/19/21 04/19/21 04/19/21 06:08 06:16 06:19 PT 11.8 INR 1.2 H APTT 29.5 PTT Ratio 1.1 POC Glucose 132 H COVID-19 Eval Order Covid19 [facility] SARS-CoV-2, RNA, NAAT 04/19/21 04/19/21 04/19/21 06:19 10:21 13:39 PT INR APTT PTT Ratio POC Glucose 154 H 85 COVID-19 Eval Order SARS-CoV-2, RNA, NAAT NEGATIVE 04/19/21 16:04 PT INR APTT PTT Ratio POC Glucose 107 H COVID-19 Eval Order SARS-CoV-2, RNA, NAAT Medications Administered Ciprofloxacin (Cipro / D5w) 400 mg in 200 mls @ 100 mls/hr IV PREOP KOBE Stop: 04/20/21 05:59 Last Admin: 04/19/21 09:12 Dose: 100 mls/hr Documented by: [id number] Insulin Aspart (Insulin Aspart 100 Units/Ml 3 Ml Pen) 0 units SC ACHS KOBE Stop: 05/19/21 12:14 Last Admin: 04/19/21 14:06 Dose: 2 units Documented by: [id number] Cosigned by: [id number] Discontinued Medications Lactated Ringer's (Lr) 1,000 mls @ 15 mls/hr IV .Q24H KOBE Stop: 04/20/21 05:59 Last Infusion: 04/19/21 08:41 Dose: 0 mls/hr Documented by: [id number] Admin: 04/19/21 06:42 Dose: 15 mls/hr Documented by: [id number] (1) Type 2 diabetes mellitus Diabetes mellitus complication detail: with other circulatory complications Diabetes mellitus complication status: with circulatory complication Diabetes mellitus retirement insulin use: without keno terminal operator use Qualified Code(s): E11.59 - Type 2 diabetes mellitus with other circulatory complications (2) CHF (congestive heart failure) Heart failure chronicity: acute Heart failure type: unspecified Qualified Code(s): I50.9 - Heart failure, unspecified (3) Atrial fibrillation Atrial fibrillation type: longstanding persistent Qualified Code(s): I48.11 - Longstanding persistent atrial fibrillation (4) Hypertension Hypertension type: unspecified Qualified Code(s): I10 - Essential (primary) hypertension
[2021-04-19 20:13] LABS: Basophils # (auto) 0.02 K/uL (0-0.2); Basophils % (auto) 0.2 %; Eosinophils # (auto) 0.11 K/uL (0-0.5); Hematocrit (blood only) 42.3 % (42-52); Hemoglobin 14.5 g/dL (14.0-18.0); Immature Granulocytes # (auto) 0.04 K/uL (0.00-0.02); Immature Granulocytes % (auto) 0.3 %; Lymphocytes # (auto) 2.08 K/uL (1.2-3.4); Lymphocytes % (auto) 18.2 %; Mean Corpuscular Hemoglobin 30.7 pg (25-34); Mean Corpuscular Hgb Conc 34.3 g/dL (32-36); Mean Corpuscular Volume 89.4 fL (80-100); Mean Platelet Volume 10.3 fL (7.4-10.4); Monocytes # (auto) 1.01 K/uL (0.11-0.59); Monocytes % (auto) 8.8 %; Neutrophils # (auto) 8.19 K/uL (1.4-6.5); Neutrophils % (auto) 71.5 %; Platelet Count 255 K/uL (130-400); RDW Coefficient of Variation 16.1 % (11.5-14.5); RDW Standard Deviation 53.3 fL (36.4-46.3); Red Blood Count 4.73 M/uL (4.7-6.1); White Blood Count 11.45 K/uL (4.8-10.8)
[2021-04-19] MEDS: METOPROLOL SUCC 25MG EXT REL TAB PO SCH (20:18)
[2021-04-19 20:33] LABS: BUN Creatinine Ratio 24.5 (10-20); Calcium 9.4 mg/dl (8.5-10.1); Creatinine Clr Calc Pharmacy 46.6 ml/min; Est GFR (African American) 49.1 ml/min; Est GFR (Non-African American) 42.4 ml/min; Magnesium 2.4 mg/dl (1.8-2.4); Potassium 3.8 mmol/L (3.5-5.1)
--- NOTE | 2021-04-20 07:43 | Urology Progress Note ---
Date of Service April 20, 2021 Assessment & Plan (1) Benign localized prostatic hyperplasia with lower urinary tract symptoms (LUTS): (2) Urinary retention: Plan: 71 year-old male patient, with multiple comorbidities, who is POD#1 transurethral resection of the prostate with Dr. Gutierrez. -Patient clinically progressing as expected post procedure. -Hospital medicine consulted, reviewed and appreciate recommendations. -He is afebrile. -Labs reviewed - white count 8.22, hgb 15.4, creatinine 1.49. -Continue with diabetic diet. -Maintain ortiz catheter. -Encourage ambulation this AM. -Plan to reassess later this morning, likely home today presuming he continues to clinically progress. Admission and Anticipated Discharge Date Admission Date: April 19, 2021 Supervising Physician Co-Signing Physician Notes Doing very well no major issues overnight no cardiac issues no signs of fluid overload urine clear now has a voiding trial scheduled for early next week ok to start coumadin again tonight plan for d.c home Subjective POD #1 transurethral resection of the prostate with Dr. Gutierrez. Patient examined at bedside this AM, he is feeling well. Reports he is ready to go home. Tolerating ortiz catheter well without difficulty. Ortiz intact, draining correia red urine without visible clots. Tolerating diabetic diet without nausea or vomiting. Has not been out of bed since procedure. Denies fevers or chills. Denies chest pain or shortness of breath. Chart review: Afebrile Vital signs sable, blood pressure this AM 110/73, pulse 59 Wbc 8.22 (previously 11.45) Hgb 15.4 (previously 14.45) Creatinine 1.49(previously 1.62) Urine culture 04/10 - positive for Serratia Liquefaciens and Corynbact.sp not urealyticum. Was treated with Levaquin 500 mg x5 days, started on 04/13. Denies additional urologic concerns today. Review of Systems Constitutional: as per Subjective / HPI; no fever and no chills Respiratory: no cough and no dyspnea Cardiovascular: no chest pain and no edema Gastrointestinal: as per Subjective / HPI; no nausea and no vomiting Genitourinary: + as per Subjective / HPI Neurologic: no dizziness Physical Exam Constitutional: well developed and well nourished; no acute distress and not ill appearing Respiratory: normal respiratory effort and able to speak in complete sentences; no respiratory distress and no audible wheezes Cardiovascular: Extremities: no calf tenderness and no edema Gastrointestinal (Abdomen): Inspection/Auscultation: abdomen normal to inspection; abdomen not distended Percussion/Palpation: abdomen soft; abdomen nontender and no guarding Psychiatric: Orientation: alert, oriented x 3 and cooperative Affect: euthymic affect Genitourinary: no CVA tenderness Ortiz catheter intact, patent, draining correia red urine. Results & Data ([facility]) Vital Signs (Past 12 Hours) Vital Signs Temp Pulse Pulse Pulse Resp BP BP 04/20/21 07:31 36.9 C 59 L 16 110/73 04/20/21 07:28 73 04/20/21 05:18 69 04/20/21 03:33 37 C 77 16 102/62 04/19/21 23:02 36.9 C 81 16 96/59 L 04/19/21 20:24 58 L 14 117/57 L Pulse Ox 04/20/21 07:31 98 04/20/21 07:28 04/20/21 05:18 04/20/21 03:33 93 04/19/21 23:02 93 04/19/21 20:24 96 PG Care Time/CCT Total # of Minutes Spent Total Time Spent with Patient: Total time spent is greater than 50% in coordination of care (as documented) at patient's floor/unit and/or counseling patient: Coding Level of Care Code None Diagnoses Benign localized prostatic hyperplasia with lower urinary tract symptoms (LUTS) N40.1 Urinary retention R33.9
[2021-04-20 07:44] LABS: Basophils # (auto) 0.03 K/uL (0-0.2); Basophils % (auto) 0.4 %; Eosinophils # (auto) 0.12 K/uL (0-0.5); Eosinophils % (auto) 1.5 %; Hematocrit (blood only) 44.8 % (42-52); Hemoglobin 15.4 g/dL (14.0-18.0); Immature Granulocytes # (auto) 0.03 K/uL (0.00-0.02); Immature Granulocytes % (auto) 0.4 %; Lymphocytes % (auto) 21.9 %; Mean Corpuscular Hemoglobin 30.8 pg (25-34); Mean Corpuscular Hgb Conc 34.4 g/dL (32-36); Mean Corpuscular Volume 89.6 fL (80-100); Monocytes # (auto) 0.59 K/uL (0.11-0.59); Monocytes % (auto) 7.2 %; Neutrophils # (auto) 5.65 K/uL (1.4-6.5); Neutrophils % (auto) 68.6 %; Platelet Count 253 K/uL (130-400); RDW Coefficient of Variation 16.1 % (11.5-14.5); RDW Standard Deviation 52.7 fL (36.4-46.3); White Blood Count 8.22 K/uL (4.8-10.8)
[2021-04-20 07:52] LABS: INR 1.1 (0.9-1.1); Prothrombin Time 11.4 Seconds (9.0-12.0)
[2021-04-20] MEDS: CIPROFLOXACIN / D5W 400 MG/200 ML BAG IV SCH (08:26)
[2021-04-20] MEDS: INSULIN ASPART 100 UNITS/ML 3 ML PEN SC SCH (08:36)
[2021-04-20 08:38] LABS: BUN Creatinine Ratio 23.4 (10-20); Creatinine Clr Calc Pharmacy 50.6 ml/min; Est GFR (African American) 54.3 ml/min; Est GFR (Non-African American) 46.9 ml/min; Potassium 4.5 mmol/L (3.5-5.1)
[2021-04-20] MEDS ORDERED: METOPROLOL SUCC 25MG EXT REL TAB PO SCH (09:00)
[2021-04-20] MEDS ORDERED: NICOTINE 14 MG/24 HR PATCH TD SCH (09:00)
[2021-04-20] MEDS ORDERED: FUROSEMIDE 80 MG TAB PO SCH (09:00)
[2021-04-20] MEDS ORDERED: FUROSEMIDE 40 MG TAB PO SCH ×2 (09:00→16:00)
[2021-04-20] MEDS ORDERED: ATORVASTATIN 40 MG TAB PO SCH (09:00)
[2021-04-20] MEDS ORDERED: DIGOXIN 0.125 MG TAB PO SCH (09:00)
[2021-04-20] MEDS ORDERED: NICOTINE 21 MG/24 HR TDSY TD SCH (09:00)
[2021-04-20] MEDS ORDERED: lisinopril 10 MG TAB PO SCH (09:00)
[2021-04-20] MEDS ORDERED: SPIRONOLACTONE 12.5 MG TAB PO SCH (09:00)
[2021-04-20] MEDS ORDERED: SIMVASTATIN 80 MG TAB PO SCH (09:00)
[2021-04-20] MEDS: METOPROLOL SUCC 25MG EXT REL TAB PO SCH (10:52)
--- NOTE | 2021-04-20 12:06 | Discharge Summary ---
Date of Service April 20, 2021 Admission HPI Per Admitting Provider See H&P Admission Exam Per Admitting Provider See H&P Principal Diagnosis BPH with LUTS/obstruction, urinary retention Discharge Exam Constitutional well developed and well nourished; no acute distress and not ill appearing Respiratory normal respiratory effort and able to speak in complete sentences; no respiratory distress and no audible wheezes Gastrointestinal (Abdomen) Inspection/Auscultation: abdomen not distended Percussion/Palpation: abdomen soft; abdomen nontender and no guarding Psychiatric Orientation: alert, oriented x 3 and cooperative Affect: euthymic affect Genitourinary no CVA tenderness Ortiz catheter intact, patent, draining clear urine. Discharge Data Allergies Allergy/AdvReac Type Severity Reaction Status Date / Time No Known Allergies Allergy Verified 04/19/21 06:21 Consultations 04/19/21 11:02 Consult Hospitalist Routine Procedures Performed Operation Date: 02/27/21 07:15 <No data on this case meets the specified criteria> Operation Date: 04/05/21 11:50 <No data on this case meets the specified criteria> Operation Date: 04/19/21 08:00 Actual Procedures p Transurethral Resection of the Prostate(Not Applicable) - Abel Gutierrez MD Hospital Course (1) Benign localized prostatic hyperplasia with lower urinary tract symptoms (LUTS): (2) Urinary retention: Patient admitted status post TURP 04/19/[address] Gutierrez. No complications post procedure. Hospital medicine consulted postoperatively, see consult notes for details. He was seen POD#1, feeling well, clinically progressing. Vital signs and post-op labs appropriate and as expected. No postop cardiac issues, no signs of fluid overload. Pain controlled, tolerating advanced diet, ambulating without dizziness. Discharged home in stable condition POD #1, home with ortiz catheter. Coumadin will be resumed this evening 04/20/21. Voiding trial outpatient next week. Total Time Total Time Spent Total Time Spent (In Minutes): 15 Discharge Plan Discharge Items Patient Disposition: Home - Self-Care Reason For Visit: BPH, Urinary Retention Discharge Diagnosis: BPH, Urinary Retention Activity: Per Instructions section Lifting: No more than 25 pounds Bathing Comment: Ok to shower. No tub baths or soaks. Sexual Activity: Wait until after follow-up appointment Exercise/Sports: Wait until after follow-up appointment Driving/Machine Use: Do not drive while taking prescription pain medication. Non-emergency contact: Surgeon and Urologist Call non-emergency contact if: you have any medication questions, your symptoms worsen, your pain is not controlled, you have a fever and your temperature is above 101 Follow-up/Referrals: Mellisa Morales PA-C [Physician Bulk Sealer Operator] - 05/01/21 2:30 pm Anders Piper [Primary Care Provider] - (PLEASE SCHEDULE A DISCHARGE FOLLOW- UP WITH YOUR PRIMARY CARE PROVIDER WITHIN 7-10 DAYS. ) [facility],Nurse [FAKE FOR SCHEDULES] - 04/24/21 2:00 pm Diet: Carb Consistent or DM2 Addtl Attending Provider Instructions: Please take all medications as prescribed and keep all follow-ups as scheduled. Please call our office at [phone] with any questions, concerns or need to reschedule appointments for any reason. We are happy to assist you. You may resume your Coumadin tonight. Please call the Coumadin Clinic to verify their recommended dosing. Please also let them know that we have started you on an antibiotic, Levofloxacin 500 mg daily. Tips for your recovery at home: Dont be alarmed by brownish or reddish blood or clots in your urine. This is a result of the procedure. This may occur off and on for weeks to months after the procedure but should continue to improve. Drink plenty of fluids during the day (enough to keep your urine very light colored). This will help keep a healthy flow of urine. Do not lift >25 lbs until your followup Avoid constipation. Please use a stool softener (Colace) for the first two weeks after your procedure Be sure to finish the antibiotics as prescribed. If you go home with a catheter, please wash tubing where it enters your body twice daily with mild soap (Dove or Dial). Once your catheter is removed, expect some blood in your urine and some burning when you urinate. You should have an appointment to have this removed, if you do not please call our office to arrange. When to call [facility] at [phone]: Your urine contains heavy blood clots You are constantly leaking urine Fever of 101F or higher, chills, nausea, or vomiting Your pain is not relieved with medication Pending Studies at Discharge: No Stand-Alone Forms: My [facility], Smoking Cessation Medications and DC Order Prescriptions: New levofloxacin 500 mg tablet 500 mg PO DAILY 3 Days Qty: 3 RF: 0 Continued alprazolam 1 mg tablet 1 mg PO TID PRN (Reason: Anxiety) RF: 0 glipizide 10 mg tablet 10 mg PO QAM RF: 0 spironolactone 25 mg tablet 12.5 mg PO QAM RF: 0 lisinopril 10 mg tablet 10 mg PO QAM RF: 0 zolpidem [Ambien] 5 mg Tablet 5 mg PO HS PRN (Reason: Sleep) RF: 0 furosemide 40 mg tablet 80 mg PO QAM RF: 0 atorvastatin 80 mg tablet 80 mg PO DAILY RF: 0 nicotine 14 mg/24 hr patch 24 hour 14 mg transdermal DAILY RF: 0 metoprolol succinate 50 mg tablet extended release 24 hr 25 mg PO BID RF: 0 warfarin 7.5 mg tablet See Rx Instructions .ROUTE .COMPLEX RF: 0 digoxin 125 mcg (0.125 mg) tablet 125 mcg PO 3XWK RF: 0 furosemide 40 mg tablet 40 mg PO QPM RF: 0 metformin 500 mg tablet 500 mg PO QAM RF: 0 Discontinued finasteride 5 mg tablet 5 mg PO QAM Qty: 30 RF: 1 levofloxacin 500 mg tablet 500 mg PO DAILY 5 Days Qty: 5 RF: 0 tamsulosin 0.4 mg Capsule 0.4 mg PO HS Qty: 30 RF: 0 Discharge Orders: Discharge Order (Routine); Ordered 04/20/21 Ordered By: Lisa Calixto Admission Data Admit Date/Time: 04/19/21 10:05 Attending Provider: Abel Gutierrez Admit Provider: Abel Gutierrez Primary Care Provider: Anders Piper Other Providers: Catalina Cohen ; Antwan Ponce ; Ne Yu ; Emily Sheridan ; Madison Dunbar ; Janeth Teixeira ; Gregoria Lindsey ; Lit Perez ; Pérez Castanon ; Taco Artis ; Maria R Leyva ; Shivani Cyr ; Adria Low ; Tiffanie Panda ; Aracelis Cabrera ; Buster Salvador ; Key Gomez ; Anupama Armendairz ; Daniel Trinidad ; Corina [place] ; Scooter Mathews ; Marli Pierre ; Ray Nelson Other Interventions: Discharge Summary Assessment (RN) Last Done: 04/20/21 10:32 Coding Level of Care Code D/C DAY MANAGEMENT <30 MINS Diagnoses Benign localized prostatic hyperplasia with lower urinary tract symptoms (LUTS) N40.1 Urinary retention R33.9
[2021-04-20] MEDS ORDERED: WARFARIN SOD 10 MG TAB PO ONE (16:00)
[2021-04-20] MEDS ORDERED: WARFARIN SOD 1.25 MG TAB PO ONE (16:00)
== END 2021-04-20 11:51 | disposition home or self-care (01) ==
LOC: ASU 05:18 → PACUINP 05:18 → 2W 17:13